=== PATIENT | male | born 1965 | race Caucasian/White ===

== ENCOUNTER 2020-08-29 14:52 | Emergency (ER) | payer MEDICARE, MEDICAID, SELFPAY ==
[2020-08-29 14:53] VITALS: BP 136/103; PULSE 122; RESP 16; TEMP 36.7; O2SAT 96; BMI 24.2
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
[2020-08-29] MEDS: HYDROcodone Bitartrate/Apap 5/325 Tablet PO (15:24)
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
--- NOTE | 2020-08-29 15:36 | RAD_ITS ---
HISTORY: Hypoesthesia infraorbital nerve question crepitus EXAMINATION/TECHNIQUE: XR Facial Bones Min 3 Views: 4 views COMPARISON: None FINDINGS: SOFT TISSUES: No soft tissue swelling or gas. No radiopaque foreign body. BONES: No displaced fracture or subluxation. No sclerotic or destructive changes observed. SINUSES: No acute abnormality. RAD/Facial Bones min 3 Views IMPRESSION: Negative facial bone series. at 1607 Reported and signed by: Buddy Ca MD Electronically Signed: Buddy Ca MD at 16:05 EDT Tel , Service support ,
[2020-08-29 16:17] VITALS: BP 159/115; PULSE 101; RESP 16
== END 2020-08-29 16:20 | disposition home or self-care (01) ==
LOC: ED 15:58
PROVIDERS: Emergency Provider Emergency Medicine
DX: S62.320A Displaced fracture of shaft of second metacarpal bone, right hand, initial encounter for closed fracture (principal); S00.83XA Contusion of other part of head, initial encounter; V89.0XXA Person injured in unspecified motor-vehicle accident, nontraffic, initial encounter; Y93.9 Activity, unspecified; Y92.9 Unspecified place or not applicable; Y99.9 Unspecified external cause status
CPT/HCPCS: 29125; 70150; 73130; 99283

== ENCOUNTER 2022-04-03 06:00 | Emergency (ER) | payer MEDICARE, MEDICAID, SELFPAY ==
[2022-04-03 06:02] VITALS: BP 146/91; PULSE 82; RESP 18; TEMP 36.3; O2SAT 98; BMI 24.2
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
[2022-04-03 06:22] LABS: Absolute Lymphocyte Count 1.03 X10^3/uL (0.83-4.51); Basophil# 0.03 X10^3/uL; Basophil% 0.3 % (0-1); Eosinophil# 0.01 X10^3/uL; Eosinophils% 0.1 % (0-5); Hematocrit 44.6 % (40-54); Hemoglobin 15.8 g/dL (13.0-16.5); Lymphocyte # 1.03 X10^3/ul (0.83-4.51); Lymphocyte % 10.4 % (19-41); Mean Corp Hgb Conc 35.4 g/dL (32-36); Mean Corpuscular Hgb 33.1 pg (27.0-32.0); Mean Corpuscular Volume 93.5 fL (80-94); Mean Platelet Vol. 9.1 fl (6.2-12.0); Monocyte% 8.1 % (0-10); NRBC Flagged by Analyzer 0 % (0-5); Neutrophil # 7.96 X10^3/uL (2.7-7.7); Neutrophil % 80.6 % (47-70); Platelet Count 266 K/mm3 (150-450); RBC Distribution Width CV 12.2 % (11.6-14.6); RBC Distribution Width SD 42.4 fl (35.1-43.9); Red Blood Count 4.77 M/mm3 (4.6-6.2); White Blood Count 9.9 K/mm3 (4.4-11.0)
[2022-04-03] MEDS: Ondansetron 4 MG/2 ML Vial IV (06:29)
[2022-04-03] MEDS: fentaNYL 100 MCG/2 ML Ampul 50 MCG IV (06:29)
[2022-04-03] MEDS: 0.9% Normal Saline 1,000 ML 999 ML IV (06:29)
[2022-04-03 06:38] LABS: ALB/GLOB Ratio 1.1 RATIO (0.9-2.4); AST(SGOT) 53 U/L (15-37); Alanine Aminotransfer ALT/SGPT 72 U/L (16-61); Albumin, Serum 3.8 g/dL (3.2-5.0); Alkaline Phosphatase 85 U/L (45-117); Anion Gap 9 (5-15); BUN 19 mg/dL (7-18); BUN/Creat Ratio 15.7 RATIO (10-20); Calcium,Total 8.4 mg/dL (8.5-10.1); Chloride 103 mmol/L (98-107); Creatinine, Serum 1.21 mg/dL (0.70-1.30); EST Glomerular Filtration Rate 66 mL/min (>60); Est Glom Filt Rate - Afr Amer 80 mL/min (>60); Estimated Creatinine Clearance 61.52 ml/min; Globulin 3.5 g/dL (2.2-4.2); Glucose 137 mg/dL (74-106); Potassium 4.2 mmol/L (3.5-5.1); Protein, Total 7.3 g/dL (6.4-8.2); Sodium Level 139 mmol/L (136-145)
[2022-04-03 06:56] LABS: Alcohol, Blood (Medical)-Serum < 3.0 mg/dL
[2022-04-03] MEDS: Morphine 4 MG/ML Syringe IV ×2 (07:42→08:52)
--- NOTE | 2022-04-03 07:58 | NURSING ---
CALLING JOSHUA FOR TRANSFER
[2022-04-03 08:00] VITALS: BP 134/78; PULSE 78; RESP 16; O2SAT 98
[2022-04-03 08:07] VITALS: BP 140/78; PULSE 18; RESP 16; TEMP 36.6; O2SAT 98
--- NOTE | 2022-04-03 08:25 | NURSING ---
CALLED SQUAD, ETA IS 20 MIN
--- NOTE | 2022-04-03 08:55 | ED.RN ---
THIS RN IN TO MEDICATE PT. PT STATES NOTHING YOU ARE DOING IS HELPING. PT STATES HAS HAD NO PAIN RELIEVE FROM ANY PAIN MEDICATION GIVEN. PT STATES YOUR SUPPOSSED TO TREAT MY PAIN. PT AWARE FENTANYL,MORPHINE AND MORPHINE GIVEN. DR JOSHUA
== END 2022-04-03 09:05 | disposition short-term general hospital (02) ==
PROVIDERS: Emergency Provider Emergency Medicine; Visit Provider Emergency Medicine
DX: S27.321A Contusion of lung, unilateral, initial encounter (principal); S22.42XA Multiple fractures of ribs, left side, initial encounter for closed fracture; S42.022A Displaced fracture of shaft of left clavicle, initial encounter for closed fracture; S27.2XXA Traumatic hemopneumothorax, initial encounter; M54.2 Cervicalgia; V48.5XXA Car driver injured in noncollision transport accident in traffic accident, initial encounter; I10 Essential (primary) hypertension; Z79.899 Other long term (current) drug therapy
CPT/HCPCS: 70450; 71045; 71260; 72125; 74177; 80053; 82077; 85025; 96361; 96374; 96375; 96376; 99283; J7030; Q9967; A4216; J2405

== ENCOUNTER 2025-02-22 07:38 | Inpatient (IN) | payer MEDICAID, SELFPAY ==
[2025-02-22 07:40] VITALS: BP 155/112; PULSE 115; RESP 16; TEMP 36.9; O2SAT 99; BMI 19.8
--- NOTE | 2025-02-22 07:58 | CT_ITS ---
PROCEDURE: BRAIN/HEAD WITHOUT CONTRAST N/A REASON FOR EXAM: CHANGE IN MENTAL STATUS TECHNIQUE: Procedure Code: CTBR Modality: CT Procedure: BRAIN/HEAD WITHOUT CONTRAST Coronal and Sagittal reconstruction series were provided. One or more dose reduction techniques were used (e.g., Automated exposure control, adjustment of the mA and/or kV according to patient size, use of iterative reconstruction technique. COMPARISON: 04/03/2022. FINDINGS: No acute intracranial hemorrhage. No midline shift. The ventricles are normal in size and configuration. No extra-axial fluid collection is identified. No fracture. The calvarium is intact. The visualized paranasal sinuses and mastoid air cells are clear. CT/Brain/Head without Contrast IMPRESSION: No acute intracranial CT abnormality. Reading Location: [id number]
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
--- NOTE | 2025-02-22 08:04 | ED.RN ---
Sophy Gupta RN found a lot of money in pts wallet. he had 29 - 100 dollar bills. Confirmed by myself and Sophy Gupta. Pt decided to keep the money on his person instead of sending it to the triple drum operator to put in the safe.
--- NOTE | 2025-02-22 08:14 | EX.ED.DYSGE1 ---
HPI History of Present Illness Chief Complaint: Suicidal Narrative Narrative: Chief complaint and HPI: 59-year-old male presents via police for mental health evaluation. History is very limited from the patient as he states I cannot remember. Patient denies any medical history or taking any daily medications however on chart review he has a history of HTN and in 2016 had depression with suicidal ideation. Patient was found by police walking the bypass barefoot in the cold. He states he was picking up trash in the grass because the sign told him to. Otherwise he did not remember much else. He is alert and oriented to self. Does not know the month or year. States he has poor memory due to a history of PTSD. He admitted to auditory hallucinations to staff members. Would not answer that question to me. He has a little bit of dried blood on his hand and abrasion to the head. He does not know how he obtain these. He told staff At one point I think I was lying in a ditch freezing and I thought I give up and I think I reached for my pocket knife. Will not confirm suicidal ideation to me. Denies any fever, chills, shortness of breath, chest pain abdominal pain, nausea, vomiting. Denies any illicit drug use. States he drinks alcohol occasionally. When I ask him if he has any family member he states a mother however she has a protection order against. When asked if he had a number for her, he states you do not need this. Review of systems: See HPI Medications: As listed on the chart Allergies: As listed on the chart PFSH: Per chart Vital signs: As listed on the chart. Reviewed. Physical exam: Gen: Alert and oriented to self and place only, NAD Head: Normocephalic, atraumatic other than a small abrasion to the scalp Eyes: No sclera icterus, conjunctiva clear, PERRL, EOMI ENT: Mildly dry mucous membranes, face atraumatic Neck: Trachea midline, full range of motion, nontender CV: RRR, no murmurs, no peripheral edema Resp: Lungs CTA BL, no w/r/c GI: Abd soft, non-distended, non-tender, no r/r/g Musc: Full ROM, no deformity Skin: Warm, dry, some dried blood on the bilateral hands without tenderness or deformity Neuro: Alert, grossly intact Psych: Intermittently cooperative with answering questions [facility] Medical History Hypertension Home Medications ?Medication ?Instructions ?Recorded ?Last Taken ?Type hydrochlorothiazide 25 mg tablet 25 mg PO QODAY #30 tabs 08/29/20 Unknown Rx lisinopril 10 mg tablet 10 mg PO DAILY #30 tabs 08/29/20 Unknown Rx mupirocin 2 % topical ointment 1 applic topical BID #15 grams 02/21/25 Unknown Rx Allergy/AdvReac Type Severity Reaction Status Date / Time No Known Allergies Allergy Verified 02/22/25 07:41 Surgical History Previous back surgery Social History household members: none housing: house Smoking Status: Never smoker alcohol intake: current alcohol intake frequency: a few times a week substance use type: does not use EXAM Physical Exam Const Vital Signs: 02/22/25 07:40 Temperature 98.4 F Temperature Source Oral Pulse Rate 115 H Respiratory Rate 16 Blood Pressure 155/112 H Blood Pressure Mean 126 Pulse Ox 99 Oxygen Delivery Method Room Air MDM MDM MDM Narrative Medical decision making narrative: 59-year-old male presents via police for mental health evaluation. History is very limited from the patient as he states I cannot remember. Patient denies any medical history or taking any daily medications however on chart review he has a history of HTN and in 2016 had depression with suicidal ideation. Patient was found by police walking the bypass barefoot in the cold. He states he was picking up trash in the grass because the sign told him to. Otherwise he did not remember much else. He is alert and oriented to self. Does not know the month or year. States he has poor memory due to a history of PTSD. He admitted to auditory hallucinations to staff members. Would not answer that question to me. He has a little bit of dried blood on his hand and abrasion to the head. He does not know how he obtain these. He told staff At one point I think I was lying in a ditch freezing and I thought I give up and I think I reached for my pocket knife. Will not confirm suicidal ideation to me. See physical exam findings. Differential diagnosis includes but is not limited to paranoia, depression, suicidal ideation, electrolyte abnormality, dehydration, intoxication, intracranial abnormality. NS bolus ordered. Patient pink slipped. Basic labs ordered with CT head. Will try to reach out to family. In the chart and states that his parents are next of kin. The phone number is [phone]. I did call this number however was unable to leave a message due to this not being an option and nobody picked up the phone. CBC without leukocytosis. Patient has hemoconcentration with hemoglobin 16.9. This can be seen with dehydration. Platelet count unremarkable. BMP shows anion gap of 20 without ALBINA. May be secondary to dehydration. Glucose is normal. Patient has hyperbilirubinemia of 2 with transaminitis with an AST of 104 and an ALT of 111. In 2022 patient had a history of transaminitis. Patient not endorsing any abdominal pain. Abdominal exam is benign. I do not think any imaging is needed at this time however will add on CPK as this can cause transaminitis. Alcohol level unremarkable. Patient receiving fluids. Will repeat BMP after fluids. CT of the head shows no acute intracranial abnormality. CPK 1177. Patient has mild rhabdomyolysis given this is 5 times the upper limit of normal. Patient starting to become agitated and intermittently aggressive. P.o. Geodon ordered. UA negative for UTI. Positive for ketones and blood. BMP shows improving anion gap. Suspect dehydration/rhabdo as the cause. Drug screen negative except for cannabis. Will order another NS bolus for hydration. IV Ativan for continued agitation. Patient to be evaluated by social work versus crisis for mental health. Repeat CPK despite 2 L is 1566. I do think patient would benefit from hydration in the hospital for his continuing/worsening rhabdomyolysis. Patient was discussed with the hospitalist service who accepted admission. Social work working on placement. EKG: Interpreted by me/EM physician: EKG shows normal sinus rhythm without any acute ischemic changes. Heart rate 90 Impression: 1. Paranoid 2. Auditory hallucination 3. Transaminitis 4. Rhabdomyolysis 5. Dehydration Lab Data Labs: Laboratory Results - last 24 hr 02/22/25 02/22/25 02/22/25 08:10 08:10 08:10 WBC 10.0 RBC 5.05 Hgb 16.9 H Hct 48.3 MCV 95.6 H MCH 33.5 H MCHC 35.0 RDW Std Deviation 42.5 RDW Coeff of Katarina 12.1 Plt Count 228 MPV 9.5 Immature Gran % (Auto) 0.600 Neut % (Auto) 86.8 H Lymph % (Auto) 5.3 L Clark % (Auto) 6.9 Eos % (Auto) 0.1 Baso % (Auto) 0.3 Absolute Neuts (auto) 8.7 H Absolute Lymphs (auto) 0.53 L Nucleated RBC % 0 Sodium 140 Cancelled Potassium 3.3 Cancelled Chloride 100 Carbon Dioxide Anion Gap BUN Creatinine Estim Creat Clear Calc Est GFR (MDRD) Non-Af BUN/Creatinine Ratio Glucose Calcium Total Bilirubin AST ALT Alkaline Phosphatase Total Creatine Kinase Total Protein Albumin Globulin Albumin/Globulin Ratio Urine Color Urine Clarity Urine pH Ur Specific [place] Urine Protein Urine Glucose (UA) Urine Ketones Urine Occult Blood Urine Nitrite Urine Bilirubin Urine Urobilinogen Ur Leukocyte Esterase Urine RBC Urine WBC Ur Squamous Epith Cells Urine Bacteria Urine Mucus Urine Opiates Screen U Buprenorphine Qual Ur Oxycodone Screen Urine Methadone Screen Urine Fentanyl Screen Ur Barbiturates Screen Ur Phencyclidine Scrn Ur Amphetamines Screen U Benzodiazepines Scrn Urine Cocaine Screen U Cannabinoids Screen Ethyl Alcohol 02/22/25 02/22/25 02/22/25 08:10 08:10 08:10 WBC RBC Hgb Hct MCV MCH MCHC RDW Std Deviation RDW Coeff of Katarina Plt Count MPV Immature Gran % (Auto) Neut % (Auto) Lymph % (Auto) Clark % (Auto) Eos % (Auto) Baso % (Auto) Absolute Neuts (auto) Absolute Lymphs (auto) Nucleated RBC % Sodium Potassium Chloride Cancelled Carbon Dioxide 19.5 L Cancelled Anion Gap 20 H Cancelled BUN 33 H Creatinine Estim Creat Clear Calc Est GFR (MDRD) Non-Af BUN/Creatinine Ratio Glucose Calcium Total Bilirubin AST ALT Alkaline Phosphatase Total Creatine Kinase Total Protein Albumin Globulin Albumin/Globulin Ratio Urine Color Urine Clarity Urine pH Ur Specific [place] Urine Protein Urine Glucose (UA) Urine Ketones Urine Occult Blood Urine Nitrite Urine Bilirubin Urine Urobilinogen Ur Leukocyte Esterase Urine RBC Urine WBC Ur Squamous Epith Cells Urine Bacteria Urine Mucus Urine Opiates Screen U Buprenorphine Qual Ur Oxycodone Screen Urine Methadone Screen Urine Fentanyl Screen Ur Barbiturates Screen Ur Phencyclidine Scrn Ur Amphetamines Screen U Benzodiazepines Scrn Urine Cocaine Screen U Cannabinoids Screen Ethyl Alcohol 02/22/25 02/22/25 02/22/25 08:10 08:10 08:10 WBC RBC Hgb Hct MCV MCH MCHC RDW Std Deviation RDW Coeff of Katarina Plt Count MPV Immature Gran % (Auto) Neut % (Auto) Lymph % (Auto) [place] % (Auto) Eos % (Auto) Baso % (Auto) Absolute Neuts (auto) Absolute Lymphs (auto) Nucleated RBC % Sodium Potassium Chloride Carbon Dioxide Anion Gap BUN Cancelled Creatinine 1.07 Cancelled Estim Creat Clear Calc 62.00 Est GFR (MDRD) Non-Af 80 Cancelled BUN/Creatinine Ratio 31.1 H Glucose Calcium Total Bilirubin AST ALT Alkaline Phosphatase Total Creatine Kinase Total Protein Albumin Globulin Albumin/Globulin Ratio Urine Color Urine Clarity Urine pH Ur Specific [place] Urine Protein Urine Glucose (UA) Urine Ketones Urine Occult Blood Urine Nitrite Urine Bilirubin Urine Urobilinogen Ur Leukocyte Esterase Urine RBC Urine WBC Ur Squamous Epith Cells Urine Bacteria Urine Mucus Urine Opiates Screen U Buprenorphine Qual Ur Oxycodone Screen Urine Methadone Screen Urine Fentanyl Screen Ur Barbiturates Screen Ur Phencyclidine Scrn Ur Amphetamines Screen U Benzodiazepines Scrn Urine Cocaine Screen U Cannabinoids Screen Ethyl Alcohol 02/22/25 02/22/25 02/22/25 08:10 08:10 08:10 WBC RBC Hgb Hct MCV MCH MCHC RDW Std Deviation RDW Coeff of Katarina Plt Count MPV Immature Gran % (Auto) Neut % (Auto) Lymph % (Auto) [place] % (Auto) Eos % (Auto) Baso % (Auto) Absolute Neuts (auto) Absolute Lymphs (auto) Nucleated RBC % Sodium Potassium Chloride Carbon Dioxide Anion Gap BUN Creatinine Estim Creat Clear Calc Est GFR (MDRD) Non-Af BUN/Creatinine Ratio Cancelled Glucose 94 Cancelled Calcium 9.6 Cancelled Total Bilirubin 2.00 H AST 104 H ALT 111 H Alkaline Phosphatase 87 Total Creatine Kinase 1177 H Total Protein 8.0 Albumin 5.0 Globulin 3.0 Albumin/Globulin Ratio 1.7 Urine Color Urine Clarity Urine pH Ur Specific [place] Urine Protein Urine Glucose (UA) Urine Ketones Urine Occult Blood Urine Nitrite Urine Bilirubin Urine Urobilinogen Ur Leukocyte Esterase Urine RBC Urine WBC Ur Squamous Epith Cells Urine Bacteria Urine Mucus Urine Opiates Screen U Buprenorphine Qual Ur Oxycodone Screen Urine Methadone Screen Urine Fentanyl Screen Ur Barbiturates Screen Ur Phencyclidine Scrn Ur Amphetamines Screen U Benzodiazepines Scrn Urine Cocaine Screen U Cannabinoids Screen Ethyl Alcohol < 10.1 02/22/25 02/22/25 02/22/25 10:15 10:35 12:39 WBC RBC Hgb Hct MCV MCH MCHC RDW Std Deviation RDW Coeff of Katarina Plt Count MPV Immature Gran % (Auto) Neut % (Auto) Lymph % (Auto) [place] % (Auto) Eos % (Auto) Baso % (Auto) Absolute Neuts (auto) Absolute Lymphs (auto) Nucleated RBC % Sodium 138 Potassium 3.8 Chloride 99 Carbon Dioxide 22.8 Anion Gap 16 H BUN 31 H Creatinine 1.01 Estim Creat Clear Calc 65.68 Est GFR (MDRD) Non-Af 86 BUN/Creatinine Ratio 30.3 H Glucose 88 Calcium 8.8 Total Bilirubin AST ALT Alkaline Phosphatase Total Creatine Kinase 1566 H Total Protein Albumin Globulin Albumin/Globulin Ratio Urine Color Yellow Urine Clarity Clear Urine pH 5.0 Ur Specific [place] 1.025 Urine Protein 100 H Urine Glucose (UA) Normal Urine Ketones 50 H Urine Occult Blood 150 H Urine Nitrite Negative Urine Bilirubin Negative Urine Urobilinogen Normal Ur Leukocyte Esterase Negative Urine RBC 0 SEEN Urine WBC 0 SEEN Ur Squamous Epith Cells 0 SEEN Urine Bacteria 1+ Urine Mucus 0 SEEN Urine Opiates Screen NEGATIVE U Buprenorphine Qual NEGATIVE Ur Oxycodone Screen NEGATIVE Urine Methadone Screen NEGATIVE Urine Fentanyl Screen NEGATIVE Ur Barbiturates Screen NEGATIVE Ur Phencyclidine Scrn NEGATIVE Ur Amphetamines Screen NEGATIVE U Benzodiazepines Scrn NEGATIVE Urine Cocaine Screen NEGATIVE U Cannabinoids Screen PRESUMPTIVE POSITIVE Ethyl Alcohol Radiography Diagnostic Testing: Clinical Impression(s) from Imaging Studies Brain CT 02/22/25 07:58 IMPRESSION: No acute intracranial CT abnormality. Reading Location: [id number] Discharge Plan Triage Chief Complaint: Suicidal ED Provider: Nik Escoto Dx/Rx/DC Orders Prescriptions: No Action mupirocin 2 % ointment 1 applic topical BID Qty: 15 1RF lisinopril 10 mg tablet 10 mg PO DAILY Qty: 30 0RF hydrochlorothiazide 25 mg tablet 25 mg PO QODAY Qty: 30 0RF Primary Care Provider: Care Physician,No Primary Referrals: Care Physician,No Primary [Primary Care Provider, Medical] Print Language: Bolivian
[2025-02-22 08:23] LABS: Hematocrit 48.3 % (40-54); Hemoglobin 16.9 g/dL (13.0-16.5); Immature Granulocytes Count 0.060 X10^3/uL (0.0-0.0); Mean Corp Hgb Conc 35.0 g/dL (32-36); Mean Corpuscular Volume 95.6 fL (80-94); Mean Platelet Vol. 9.5 fl (6.2-12.0); NRBC Flagged by Analyzer 0 % (0-5); POSITIVE DIFFERENTIAL YES; Platelet Count 228 K/mm3 (150-450); RBC Distribution Width CV 12.1 % (11.6-14.6); RBC Distribution Width SD 42.5 fl (35.1-43.9); Red Blood Count 5.05 M/mm3 (4.6-6.2); White Blood Count 10.0 K/mm3 (4.4-11.0)
[2025-02-22 08:45] LABS: Alcohol, Blood (Medical)-Serum < 10.1 mg/dL (<=10.0)
[2025-02-22 08:46] LABS: AST(SGOT) 104 U/L (<=37); Alanine Aminotransfer ALT/SGPT 111 U/L (<=46); Albumin, Serum 5.0 g/dL (3.5-5.0); Alkaline Phosphatase 87 U/L (40-129); Anion Gap 20 (5-15); BUN 33 mg/dL (4-19); BUN/Creat Ratio 31.1 RATIO (10-20); Calcium,Total 9.6 mg/dL (7.6-11.0); Carbon Dioxide 19.5 mmol/L (21.0-32.0); Chloride 100 mmol/L (98-108); Estimated Creatinine Clearance 62.00 ml/min (50-250); Globulin 3.0 g/dL (2.2-4.2); Glucose 94 mg/dL (70-99); Potassium 3.3 mmol/L (3.3-5.1)
[2025-02-22] MEDS: 0.9% Normal Saline (1000mL) 1,000 ML 1000 ML IV ×2 (09:10→11:15)
[2025-02-22 09:46] LABS: CPK Total, Creatine Kinase 1177 U/L (24-195)
--- NOTE | 2025-02-22 09:47 | ED.RN ---
Pt repeatedly asking for pain medications for his chronic pain. This RN told pt. she would ask the dr. but it may only be for tylenol or motrin. Pt. responded with I was oxy, percocet, or vicodin and I need that I am required to get that. Pt. states he does not have existing prescription for those medications.
--- NOTE | 2025-02-22 09:54 | EKG12_ITS ---
Test Reason : MEDICAL CLEARANCE Blood Pressure : */* mmHG Vent. Rate : 90 BPM Atrial Rate : 90 BPM P-R Int : 134 ms QRS Dur : 92 ms QT Int : 386 ms P-R-T Axes : 70 63 57 degrees QTcB Int : 472 ms Normal sinus rhythm Normal ECG Confirmed by Mgaed Ray ([id number]), editor & co founder GHULAM JUAREZ ([id number]) on 02/24/2025 8:39:34 AM Referred By: Confirmed By: Maged Ray
[2025-02-22 10:19] LABS: Mucous, Urine 0 SEEN /hpf (<or=2+); Red Blood Cells-Urine 0 SEEN /hpf (0-5); Squamous Epithelial Cells - UA 0 SEEN /hpf (0-5)
[2025-02-22 10:23] LABS: Color, Urine Yellow (Yellow); Glucose, Dipstick Normal (Normal); Ketone-Dipstick 50 mg/dl (Negative); Leukocyte Esterase-Dipstick Negative /ul (Negative); Nitrite-Dipstick Negative (Negative); Occult Blood-Urine 150 /ul (Negative); Protein-Dipstick 100 mg/dl (Negative); Specific Gravity, Urine 1.025 (1.002-1.030); Urine Bilirubin Dipstick Negative (Negative)
--- NOTE | 2025-02-22 10:39 | ED.RN ---
pt is having an increase in hearing voices in room and responding to them. Pt. yelled out of room at Aaron and Ramon RN and called them bastards and that he would throw down anyday with any of you. Order for PO Faraz given. Pt. then stated he could not find his money that he inisted on keeping in room and accused staff of stealing his money. This RN, Olivia panda, Dariusz higgins and HRO assisted pt. in looking for money in his linens in room. pt then admitted to be hiding the money on his person under his gown. This RN reiterated again that his money would be the most safe given to security and placed in the safe. Pt. continues to talk about hunting humans in the [place] and how you fuckers wouldnt stand a chance
[2025-02-22 11:01] LABS: Barbiturate Urine NEGATIVE (< 200 ng/mL); Benzodiazepine Urine NEGATIVE (< 200 ng/mL); PCP Urine NEGATIVE (< 25 ng/mL); THC Urine PRESUMPTIVE POSITIVE (< 50 ng/mL)
[2025-02-22 11:05] LABS: Anion Gap 16 (5-15); BUN 31 mg/dL (4-19); BUN/Creat Ratio 30.3 RATIO (10-20); Calcium,Total 8.8 mg/dL (7.6-11.0); Carbon Dioxide 22.8 mmol/L (21.0-32.0); Chloride 99 mmol/L (98-108); Estimated Creatinine Clearance 65.68 ml/min (50-250); Glucose 88 mg/dL (70-99); Potassium 3.8 mmol/L (3.3-5.1)
[2025-02-22 13:19] LABS: CPK Total, Creatine Kinase 1566 U/L (24-195)
--- NOTE | 2025-02-22 13:27 | PCM.HP.STD ---
HPI - General General Date of Admission: 02/22/25 Date of Service: 02/22/25 Chief Complaint: Disorientation HPI Narrative ABIMAEL FRIAS, is a 59 M with past medical history significant for essential hypertension who was brought to the emergency department with disorientation and delusions. Patient was apparently found in the ditch with dried blood on his cell. He had apparently told the lock expert he was hearing voices and was going to stop his throats. Was brought to the emergency department. Plan was for patient to have been transferred to an inpatient psych facility he was however found to have elevated CPK. He did receive IV hydration and his CPK levels repeated which did show an upward trend hence the decision to admit patient as a case of acute rhabdomyolysis [facility] Medical History Hypertension Home Medications ?Medication ?Instructions ?Recorded ?Last Taken ?Type hydrochlorothiazide 25 mg tablet 25 mg PO QODAY #30 tabs 08/29/20 Unknown Rx lisinopril 10 mg tablet 10 mg PO DAILY #30 tabs 08/29/20 Unknown Rx mupirocin 2 % topical ointment 1 applic topical BID #15 grams 02/21/25 Unknown Rx Allergy/AdvReac Type Severity Reaction Status Date / Time No Known Allergies Allergy Verified 02/22/25 07:41 Surgical History Previous back surgery Social History household members: none housing: house Smoking Status: Never smoker alcohol intake: current alcohol intake frequency: a few times a week substance use type: does not use ROS ROS Narrative Unable to obtain given patient's current state Vital Signs Vital Signs Vital Signs: 02/22/25 07:40 Temperature 98.4 F Temperature Source Oral Pulse Rate 115 H Respiratory Rate 16 Blood Pressure 155/112 H Blood Pressure Mean 126 Pulse Ox 99 Oxygen Delivery Method Room Air Weight Weight: 58.967 kg Body Mass Index (BMI) 19.8 Physical Exam Narrative GENERAL: Patient awake laying on his abdomen not answering questions HEENT: Atraumatic; EYES; Anicteric, Normal Conjunctiva NECK; supple, normal thyroid, RESPIRATORY: Diminished to auscultation CARDIOVASCULAR: Regular S1 S2, GI: soft, normoactive bowel sounds, : No Renal angle tenderness; EXTREMITIES: No edema, no clubbing, MUSCULOSKELETAL: no muscle wasting NEURO: Patient appears to move all extremities spontaneous SKIN: No Rash PSYCH; agitated Results Lab / Micro Data 02/22/25 08:10 02/22/25 10:35 Labs: Laboratory Results - last 24 hr 02/22/25 08:10: WBC 10.0, RBC 5.05, Hgb 16.9 H, Hct 48.3, MCV 95.6 H, MCH 33.5 H, MCHC 35.0, RDW Std Deviation 42.5, RDW Coeff of Katarina 12.1, Plt Count 228, MPV 9.5, Immature Gran % (Auto) 0.600, Neut % (Auto) 86.8 H, Lymph % (Auto) 5.3 L, [place] % (Auto) 6.9, Eos % (Auto) 0.1, Baso % (Auto) 0.3, Absolute Neuts (auto) 8.7 H, Absolute Lymphs (auto) 0.53 L, Nucleated RBC % 0, Sodium 140 02/22/25 08:10: Sodium Cancelled, Potassium 3.3 02/22/25 08:10: Potassium Cancelled, Chloride 100 02/22/25 08:10: Chloride Cancelled, Carbon Dioxide 19.5 L 02/22/25 08:10: Carbon Dioxide Cancelled, Anion Gap 20 H 02/22/25 08:10: Anion Gap Cancelled, BUN 33 H 02/22/25 08:10: BUN Cancelled, Creatinine 1.07 02/22/25 08:10: Creatinine Cancelled, Estim Creat Clear Calc 62.00, Est GFR (MDRD) Non-Af 80 02/22/25 08:10: Est GFR (MDRD) Non-Af Cancelled, BUN/Creatinine Ratio 31.1 H 02/22/25 08:10: BUN/Creatinine Ratio Cancelled, Glucose 94 02/22/25 08:10: Glucose Cancelled, Calcium 9.6 02/22/25 08:10: Calcium Cancelled, Total Bilirubin 2.00 H, AST 104 H, ALT 111 H, Alkaline Phosphatase 87, Total Creatine Kinase 1177 H, Total Protein 8.0, Albumin 5.0, Globulin 3.0, Albumin/Globulin Ratio 1.7, Ethyl Alcohol < 10.1 02/22/25 10:15: Urine Color Yellow, Urine Clarity Clear, Urine pH 5.0, Ur Specific [place] 1.025, Urine Protein 100 H, Urine Glucose (UA) Normal, Urine Ketones 50 H, Urine Occult Blood 150 H, Urine Nitrite Negative, Urine Bilirubin Negative, Urine Urobilinogen Normal, Ur Leukocyte Esterase Negative, Urine RBC 0 SEEN, Urine WBC 0 SEEN, Ur Squamous Epith Cells 0 SEEN, Urine Bacteria 1+, Urine Mucus 0 SEEN, Urine Opiates Screen NEGATIVE, U Buprenorphine Qual NEGATIVE, Ur Oxycodone Screen NEGATIVE, Urine Methadone Screen NEGATIVE, Urine Fentanyl Screen NEGATIVE, Ur Barbiturates Screen NEGATIVE, Ur Phencyclidine Scrn NEGATIVE, Ur Amphetamines Screen NEGATIVE, U Benzodiazepines Scrn NEGATIVE, Urine Cocaine Screen NEGATIVE, U Cannabinoids Screen PRESUMPTIVE POSITIVE 02/22/25 10:35: Sodium 138, Potassium 3.8, Chloride 99, Carbon Dioxide 22.8, Anion Gap 16 H, BUN 31 H, Creatinine 1.01, Estim Creat Clear Calc 65.68, Est GFR (MDRD) Non-Af 86, BUN/Creatinine Ratio 30.3 H, Glucose 88, Calcium 8.8 02/22/25 12:39: Total Creatine Kinase 1566 H Imaging Radiology Impression Brain CT 02/22/25 07:58 IMPRESSION: No acute intracranial CT abnormality. Reading Location: [id number] Assessment & Plan Assessment/Plan (1) Rhabdomyolysis: PLAN: Plan Patient is a 59-year-old gentleman admitted with agitation and suicidal ideas 1. Acute psychosis ? Patient did receive Geodon as well as Ativan in the ED admitted to regular nursing floor with a sitter by the side. hot blast worker was consulted from the ED to facilitate transfer to an inpatient psych facility once patient is medically stable 2. Acute rhabdomyolysis ? Secondary to prolonged period of immobilization patient started on IV fluid repeat CPK levels ordered for a.m. 3. Dehydration ? As evidenced by elevated BUN. Patient is on IV fluid with repeat BMP ordered for a.m. 4. Essential hypertension ? Patient is on HCTZ and lisinopril plan is to resume once home meds have been reconciled. Patient blood pressure currently elevated ordered hydralazine as needed for systolic blood pressure greater than 160 and diastolic greater than 100 5. Acute transaminitis ? Repeat BMP ordered for a.m. and if still elevated will obtain ultrasound of the right upper quadrant 6. DVT prophylaxis ? Low risk encourage ambulation Time spent in the patient's overall evaluation,decision-making process, review of diagnostic data, adjustment of management, discussion with other providers, nursing nursing and ancillary staff involved in patient's care documentation, 55 minutes Charges/Coding Visit Charges Inpatient E&M: 84454 Init Hosp L2
--- NOTE | 2025-02-22 14:21 | CM.ED ---
Social Work Psychiatric Assessment Reason for consult: ?Mental Health Informant(s): Patient, medical record Chief Complaint: ?Patient was found outside in the cold without shoes, walking along the road.? Patient was brought to ED by police for assessment.?? Patient was unable to participate in assessment with SW.?? Patient was responding to internal stimuli, telling social work that he was engaged in multiple conversations at one time ?Don?t you hear them??.? Patient states that one of the conversations was with his son as both he and his son have chips in their brains and can talk through telepathy.? Patient states his son was currently calling his a ?dope head?.? Patient was unable to sit still during assessment, would stand up by side of bed, crouch beside it to ?stretch his toes?, was picking at blankets on bed although there was nothing on them.? Patient was unable or unwilling to respond to direct questions.? When asked the year, patient replied $41,000 and when asked if he graduated high school, patient stated ?the smartest men in the world don?t have their teeth?.? Marital/Social History: ? Living Situation: ?Patient reports to living in the [facility], states ?we? live in the [facility].? When asked who ?we? are, patient states ?you know, we!?.? Patient then denies living with a group of others.? Support/Resources: ?Patient reports that he likes to come in and out of his moms house, however chart states that patients mom has a restraining order against him. SW attempted to contact patients mom with number listed on face sheet, call went directly to voicemail and there was no ability to leave message. History: Patient reports to having served in the [email or web address], unclear if this is accurate.? Education and Employment History: ?Patient is on disability, records indicate from a broken back 10 years ago.? Mental Health Treatment/History: ?No mental health services were noted in patients medical record.? Triggers/Stressors to mental health: Unknown.? Coping Skills: ?patient unable to respond to question History of Abuse (physical/sexual/verbal/emotional): ?patient unable to respond to question Substance Abuse Current/Historical: Risk to Self/Others: ? Suicidal (thought/plan/intent/attempt): ?Unable to complete C-SSRS ? Access to Lethal Means: ? Homicidal (thought/plan/intent/attempt): ? History of Violence (self/others/objects): Mental Status Exam: ??? Orientation: Patient was oriented x 1, to self only ??? Memory: ?unable to assess Appearance/General Behavior: ?agitated, non-directable Mood/Affect: ?elevated, labile Communication Pattern: ?tangential, pressured, Thought Process: auditory hallucination, delusions, paranoia General Intellectual Functioning: average Judgment: ?poor Insight: ?poor Plan: ??Patient requiring admission for medical clearance, patient to be reassessed once medically cleared to determine if inpatient hospitalization is recommended. Nikky Jackman, BILINGUAL MEDICAL RECEPTIONIST, SUPERVISOR [employer]
[2025-02-22] MEDS: 0.9% Normal Saline (1000mL) 1,000 ML 150 ML IV ×2 (14:33→21:03)
[2025-02-22 16:15] VITALS: BP 119/85; PULSE 74; RESP 16; TEMP 36.7; O2SAT 97
[2025-02-22 16:16] VITALS: BMI 22.1
[2025-02-22 19:50] VITALS: BP 157/72; PULSE 81; RESP 16; TEMP 36.6; O2SAT 100
--- OUTSIDE RECORDS SUMMARY | 2025-02-22 19:57 | XMS RPT_ITS | CCD ---
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 for anxiety Normal [facility] ED PROV NOTEon 07-10-2023 ED PROV NOTE HNO ID: [id number] Author: MALINI ALAS MD Service: ? Author Type: Physician Type: ED Provider Notes Filed: 07/10/2023 09:48 Note Text: ED Provider Note Patient Name: Abimael Dave : 1965 SERVICE DATE: 07/10/23 History Patient presents with: Leg Cramps: Just discharged from here - states that he doesn't have his cane and his cramping is worsening Patient who was just discharged after being brought in for digging through a neighbors trash and cleared from a psych perspective returns to the emergency department complaining of leg cramps. Patient received IV fluids, Ativan and magnesium overnight due to his concern he might be having alcohol withdrawal. Patient was medically cleared and discharged, ambulatory and hemodynamically stable in no distress. Patient did not leave the hospital property and told an officer that he was having leg cramps and wanted to be seen again. Patient currently stating he feels dehydrated. He has intermittent leg cramps. He is not taking his blood pressure medications because he states they were in his car that got impounded. He does not know what he takes. PAST MEDICAL HISTORY Diagnosis Date Acquired spondylolisthesis Chronic hepatitis C without mention of hepatic coma Chronic low back pain Depressive disorder, not elsewhere classified H/O alcohol abuse Lumbago Opiate addiction (HCC) Spinal stenosis, lumbar region, without neurogenic claudication PAST SURGICAL HISTORY Procedure Laterality Date OPEN TX METACARPAL FRACTURE SINGLE EA BONE Right 04/08/2020 Right 4th [facility] ORIF and excision bony exostosis right 3rd Metacarpal PAST SURGICAL HISTORY OF 03/25/2005 lumbar spondylolisthesis L4-L5 fixation surgery No family history on file. Social History Tobacco Use Smoking status: Light Smoker Smokeless tobacco: Never Vaping Use Vaping Use: Never used Substance and Sexual Activity Alcohol use: Yes Comment: occasionally Drug use: Yes Types: Marijuana, Amphetamines Comment: 07/10/23 Sexual activity: Not on file ALLERGIES Allergen Reactions Bactrim [Sulfametho* GI Upset vomiting Review of Systems Constitutional: Pertinent positives and negatives as per HPI. Physical Exam Vitals BP Pulse Temp Temp src Resp SpO2 Weight Height -- -- -- -- -- -- -- -- Physical Exam Vitals and nursing note reviewed. Exam conducted with a security program manager present. Constitutional: Comments: Unkempt appearing, patient ambulated without any difficulty from the waiting room into his ED room, currently sitting in a chair in no distress HENT: Head: Normocephalic and atraumatic. Cardiovascular: Rate and Rhythm: Normal rate and regular rhythm. Pulmonary: Effort: Pulmonary effort is normal. No respiratory distress. Musculoskeletal: General: Normal range of motion. Neurological: General: No focal deficit present. Mental Status: He is alert and oriented to person, place, and time. Gait: Gait normal. Comments: Speech is fluent, no slurring Diagnostic Testing ED Labs Ordered and Reviewed - No data to display Procedures ED Course / Clinical Impression ED Course as of 07/10/23 0946 Malini Alas's Documentation SatJul 10, 2023 0842 Magnesium: 2.3 0946 Anion Gap: 16 0946 Magnesium: 2.3 Clinical Impressions as of 07/10/23 0946 Leg cramps Hypokalemia Hypertension, unspecified type MDM / Disposition / Plan Patient's labs from last night were reviewed. He did have some ketones in his urine and mild hypokalemia, anion gap, which may be from dehydration and starvation ketosis. Patient will be given IV fluids, potassium, and Toradol for his muscle cramps. Patient was given a dose of amlodipine, which is the blood pressure medication he is supposed to be on per chart review. Labs were repeated that did show hypokalemia. Other labs had improved from earlier. Patient's anion gap resolved. Normal magnesium. Patient was discharged on oral potassium supplementation, his amlodipine that he has not been taking, and naproxen to help with pain. Patient was instructed to follow-up with primary care for his ongoing medical issues such as his hypertension and reevaluation of hypokalemia. History and Record Review External record(s) reviewed: prior outpatient record. Findings from review of outpatient records: Medication history reviewed Differential Diagnoses - Muscle cramps - Hypertension - Hypokalemia - Medication noncompliance Management All Labs ED Labs Ordered and Reviewed BASIC METABOLIC PANEL - Abnormal Result Value Glucose 124 (*) BUN 17 Creatinine 0.76 Sodium 140 Potassium 3.0 (*) Chloride 100 CO2 24 Anion Gap 16 Calcium, Total 8.2 (*) Estimated Glomerular Filtration Rate 105 MAGNESIUM - Normal Magnesium 2.3 Meds Given During Visit ED Medication Administration from 07/10/2023 0657 to 07/10/2023 0947 Date/Time Order Dose Route Action 07/10/2023 0802 EDT NaC (more content not included)... Normal [facility] ED PROV NOTE HNO ID: [id number] Author: ERIN SORIANO MD Service: ? Author Type: Physician Type: ED Provider Notes Filed: 07/10/2023 06:05 Note Text: ED Provider Note Patient Name: Abimael Dave : 1965 SERVICE DATE: 07/09/23 History Patient presents with: Psychiatric Problem 57 year old male presents to the emergency department for evaluation of alcohol detox. Per police he was digging through a strangers trash. He reports he has gone 24 hours without alcohol and was afraid if he went to the convenience store for water he would buy alcohol so he was looking for something to drink in the trash cans on the way to his mothers house. When asked about his alcohol use he is avoidant and continues to look at the police in the hallway, he states honestly I am not on all my medications that I should be. When asked about him medical conditions he states PTSD. He denies any pain. No history of seizures. He is avoidant and doesn't answer all my questions. He needs to be redirected multiple times before he responds. Speech is not slurred he is awake and alert. History provided by: Patient and police communications supervisor used: No PAST MEDICAL HISTORY Diagnosis Date Acquired spondylolisthesis Chronic hepatitis C without mention of hepatic coma Chronic low back pain Depressive disorder, not elsewhere classified H/O alcohol abuse Lumbago Opiate addiction (HCC) Spinal stenosis, lumbar region, without neurogenic claudication PAST SURGICAL HISTORY Procedure Laterality Date OPEN TX METACARPAL FRACTURE SINGLE EA BONE Right 04/08/2020 Right 4th [facility] ORIF and excision bony exostosis right 3rd Metacarpal PAST SURGICAL HISTORY OF 03/25/2005 lumbar spondylolisthesis L4-L5 fixation surgery No family history on file. Social History Tobacco Use Smoking status: Light Smoker Smokeless tobacco: Never Vaping Use Vaping Use: Never used Substance and Sexual Activity Alcohol use: Yes Comment: occasionally Drug use: Not Currently Sexual activity: Not on file ALLERGIES Allergen Reactions Bactrim [Sulfametho* GI Upset vomiting Review of Systems Constitutional: Negative. HENT: Negative. Eyes: Negative. Respiratory: Negative. Cardiovascular: Negative. Gastrointestinal: Negative. Endocrine: Negative. Genitourinary: Negative. Musculoskeletal: Negative. Skin: Negative. Allergic/Immunologic: Negative. Neurological: Negative. Hematological: Negative. Psychiatric/Behavioral : Positive for agitation. Reports alcohol withdrawal Physical Exam Vitals [07/09/232107] BP Pulse Temp Temp src Resp SpO2 Weight Height (!) 184/127 (!) 124 36.7 ?C (98 ?F) Temporal 18 98 % 68 kg (150 lb) -- Physical Exam Vitals and nursing note reviewed. Constitutional: Appearance: He is not toxic-appearing. HENT: Head: Normocephalic and atraumatic. Cardiovascular: Rate and Rhythm: Normal rate. Pulmonary: Effort: Pulmonary effort is normal. No respiratory distress. Skin: General: Skin is warm. Neurological: General: No focal deficit present. Mental Status: He is alert and oriented to person, place, and time. Psychiatric: Attention and Perception: He is inattentive. Mood and Affect: Mood normal. Speech: Speech is delayed. Behavior: Behavior is agitated (slightly). Comments: No tongue fasciculations or asterixis Diagnostic Testing ED Labs Ordered and Reviewed COMPREHENSIVE METABOLIC PANEL - Abnormal; Notable for the following components: Result Value Ref Range Albumin 5.3 (*) 3.9 - 4.9 g/dL Bilirubin, Total 1.6 (*) 0.2 - 1.3 mg/dL Alkaline Phosphatase 124 (*) 38 - 113 U/L AST 132 (*) 14 - 40 U/L ALT 74 (*) 10 - 54 U/L Potassium 3.5 (*) 3.7 - 5.1 mmol/L CO2 21 (*) 22 - 30 mmol/L Anion Gap 22 (*) 9 - 18 mmol/L All other components within normal limits COMPLETE BLOOD COUNT - Normal ETHANOL/ALCOHOL - Normal URINALYSIS WITH MICROSCOPIC, REFLEX CULTURE TOXICOLOGY SCREEN, ROUTINE URINE Procedures ED Course / Clinical Impression Clinical Impressions as of 07/10/23 0026 Substance abuse (HCC) PTSD (post-traumatic stress disorder) Amphetamine abuse (HCC) Diminished Capacity (From admission, onward) Ordered Status Ordering Provider 07/09/23 3674 Diminished Mental Capacity (This order expires after 24 hours) [[id number]] Continuous x 24 hours Expiring References: Against Medical Advice (AMA) Policy Patients Without Surrogate Standard Operating Procedure Against Medical Advice (AMA) Policy ([place] Only) Question Answer Comment I have evaluated this patient and based on my examination determined that the patient has a primary diagnosis of: Substance Withdrawal At present, patient lacks sufficient decision making ability to make informed decisions to leave the hospital, therefore, Patient should not be allowed to leave the hospital against medical advice Acknowledged NIKOLAS CUNNINGHAM MDM / Disposition / Plan Vital (more content not included)... Normal [facility] Magnesium SerPl-mCncon 07-09 Magnesium [Mass/Vol] 2.3 mg/dL Normal 1.7-2.3 [facility] Comment on above: Order Comment: Speci men Type: BLOOD SPECIMENOrdering Facility: [facility] Address: [address] [place] [address] Performed By: #### 2 4321-2, 88670-1 ####[facility] LABORATORYCLIA [id number] [place] [id number] [place] TOXICOLOGY SCREEN, ROUTINE U RINEon 07-10-2023 Amphetamines Confirm (U) [Mass/Vol] Positive Abnormal Negative [facility] Comment on above: Order Comment: Speci men Type: URINE SPECIMENOrdering Facility: [facility] Address: [address] [place] [address] Result Comment: Cuto ff threshold at 1000 ng/mL. Performed By: #### U TOX2 ####POWER LABORATORYCLIA [id number] [address] [place] BARBITURATES, URINE Negative Normal Negative [facility] Comment on above: Order Comment: Speci men Type: URINE SPECIMENOrdering Facility: [facility] Address: [address] [place] [address] Result Comment: Cuto ff threshold at 200 ng/mL. Performed By: #### U TOX2 ####POWER LABORATORYCLIA [id number] [place] [address] [place] BENZODIAZEPINES, UR Negative Normal Negative [facility] Comment on above: Order Comment: Speci men Type: URINE SPECIMENOrdering Facility: [facility] Address: [address] [place] [address] Result Comment: Cuto ff threshold at 200 ng/mL. Performed By: #### U TOX2 ####POWER LABORATORYCLIA [id number] [address] [place] Cannabinoids Screen Ql (U) Positive Abnormal Negative [facility] Comment on above: Order Comment: Speci men Type: URINE SPECIMENOrdering Facility: [facility] Address: [address] [place] [address] Result Comment: Cuto ff threshold at 50 ng/mL. Performed By: #### U TOX2 ####POWER LABORATORYCLIA [id number] [address] [place] Cocaine Ql (U) Negative Normal Negative [facility] Comment on above: Order Comment: Speci men Type: URINE SPECIMENOrdering Facility: [facility] Address: [address] [place] [address] Result Comment: Cuto ff threshold at 300 ng/mL. Performed By: #### U TOX2 ####POWER LABORATORYCLIA [id number] [address] [place] Ethanol (U) [Mass/Vol] <11 Normal <11 [facility] Comment on above: Order Comment: Speci men Type: URINE SPECIMENOrdering Facility: [facility] Address: [address] [place] [address] Performed By: #### U TOX2 ####POWER LABORATORYCLIA [id number] [address] Opiates Screen Ql (U) Negative Normal Negative [facility] Comment on above: Order Comment: Speci men Type: URINE SPECIMENOrdering Facility: [facility] Address: [address] [place] [address] Result Comment: Cuto ff threshold at 300 ng/mL. Performed By: #### U TOX2 ####POWER LABORATORYCLIA [id number] [address] oxyCODONE cutoff Screen (U) [Mass/Vol] Negative Normal Negative [facility] Comment on above: Order Comment: Speci men Type: URINE SPECIMENOrdering Facility: [facility] Address: [address] [place] [address] Result Comment: Cuto ff threshold at 100 ng/mL. Performed By: #### U TOX2 ####POWER LABORATORYCLIA [id number] [address] Phencyclidine Ql (U) Negative Normal Negative [facility] Comment on above: Order Comment: Speci men Type: URINE SPECIMENOrdering Facility: [facility] Address: [address] [place] [address] Result Comment: Cuto ff threshold at 25 ng/mL. Performed By: #### U TOX2 ####POWER LABORATORYCLIA [id number] [address] Urinalysis complete panel (U )on 07-10-2023 Bilirubin Ql (U) Negative Normal Negative [facility] Comment on above: Order Comment: Speci men Type: URINE SPECIMENOrdering Facility: [facility] Address: [address] [place] [address] Performed By: #### 2 4356-8 ####POWER LABORATORYCLIA [id number] [address] Clarity (Unsp spec) Clear Normal Clear [facility] Comment on above: Order Comment: Speci men Type: URINE SPECIMENOrdering Facility: [facility] Address: [address] [place] [address] Performed By: #### 2 4356-8 ####POWER LABORATORYCLIA [id number] [place] [address] [place] Color (U) Yellow Normal Yellow [facility] Comment on above: Order Comment: Speci men Type: URINE SPECIMENOrdering Facility: [facility] Address: [address] [place] [address] Performed By: #### 2 4356-8 ####POWER LABORATORYCLIA [id number] [place] [address] [place] Epithelial cells LM.HPF (Urine sed) [#/Area] Few Normal [facility] Comment on above: Order Comment: Speci men Type: URINE SPECIMENOrdering Facility: [facility] Address: [address] [place] [address] Performed By: #### 2 4356-8 ####POWER LABORATORYCLIA [id number] [address] [place] Glucose Test strip (U) [Mass/Vol] Negative Normal Negative [facility] Comment on above: Order Comment: Speci men Type: URINE SPECIMENOrdering Facility: [facility] Address: [address] [place] [address] Performed By: #### 2 4356-8 ####POWER LABORATORYCLIA [id number] [address] [place] [facility] Hemoglobin Ql (U) 3+ Abnormal Negative [facility] Comment on above: Order Comment: Speci men Type: URINE SPECIMENOrdering Facility: [facility] Address: [address] [place] [address] Performed By: #### 2 4356-8 ####POWER LABORATORYCLIA [id number] [place] [address] [place] [facility] [place] Ketones Ql (U) 2+ Abnormal Negative [facility] Comment on above: Order Comment: Speci men Type: URINE SPECIMENOrdering Facility: [facility] Address: [address] [place] [address] Performed By: #### 2 4356-8 ####POWER LABORATORYCLIA [id number] [place] [address] [place] Leukocyte esterase Test strip Ql (U) Negative Normal Negative [facility] Comment on above: Order Comment: Speci men Type: URINE SPECIMENOrdering Facility: [facility] Address: [address] [place] [address] Performed By: #### 2 4356-8 ####POWER LABORATORYCLIA [id number] [place] [address] [place] Nitrite Ql (U) Negative Normal Negative [facility] Comment on above: Order Comment: Speci men Type: URINE SPECIMENOrdering Facility: [facility] Address: [address] [place] [address] Performed By: #### 2 4356-8 ####POWER LABORATORYCLIA [id number] [place] [address] [place] pH (U) 6.0 [pH] Normal 5.0-8.0 [facility] Comment on above: Order Comment: Speci men Type: URINE SPECIMENOrdering Facility: [facility] Address: [address] [place] [address] Performed By: #### 2 4356-8 ####POWER LABORATORYCLIA [id number] [place] [address] [place] Protein (U) [Mass/Vol] 2+ Abnormal Negative [facility] Comment on above: Order Comment: Speci men Type: URINE SPECIMENOrdering Facility: [facility] Address: [address] [place] [address] Performed By: #### 2 4356-8 ####POWER LABORATORYCLIA [id number] [place] [address] [place] RBC LM.HPF (Urine sed) [#/Area] 0-3 /HPF Normal 0-3 /HPF [facility] Comment on above: Order Comment: Speci men Type: URINE SPECIMENOrdering Facility: [facility] Address: [address] [place] [address] Performed By: #### 2 4356-8 ####POWER LABORATORYCLIA [id number] [place] [address] [place] Specific gravity (U) [Rel density] >=1.030 High 1.005-1.030 [facility] Comment on above: Order Comment: Speci men Type: URINE SPECIMENOrdering Facility: [facility] Address: [address] [place] [address] Performed By: #### 2 4356-8 ####POWER LABORATORYCLIA [id number] [address] [place] Present Abnormal None Seen [facility] Comment on above: Order Comment: Speci men Type: URINE SPECIMENOrdering Facility: [facility] Address: [address] [place] [address] Performed By: #### 2 4356-8 ####[facility] LABORATORYCLIA [id number] [address] Urobilinogen Ql (U) 0.2 EU/dL Normal 0.2-1.0 EU/dL [facility] Comment on above: Order Comment: Speci men Type: URINE SPECIMENOrdering Facility: [facility] Address: [address] [place] [address] Performed By: #### 2 4356-8 ####[facility] LABORATORYCLIA [id number] [address] [place] [facility] WBC LM.HPF (Urine sed) [#/Area] 0-5 /HPF Normal 0-5 /HPF [facility] Comment on above: Order Comment: Speci men Type: URINE SPECIMENOrdering Facility: [facility] Address: [address] [place] [address] Performed By: #### 2 4356-8 ####POWER LABORATORYCLIA [id number] [address] [place] [facility] CBC panel Auto (Bld)on 07-08 Erythrocyte distribution width (RBC) [Ratio] 13.0 % Normal 11.5-15.0 [facility] Comment on above: Order Comment: Speci men Type: BLOOD SPECIMENOrdering Facility: [facility] Address: [address] [place] [address] Performed By: #### 5 8410-2 ####[facility] LABORATORYCLIA [id number] [address] [place] Hematocrit (Bld) [Volume fraction] 46.5 % Normal 39.0-51.0 [facility] Comment on above: Order Comment: Speci men Type: BLOOD SPECIMENOrdering Facility: [facility] Address: [address] [place] [address] Performed By: #### 5 8410-2 ####POWER LABORATORYCLIA [id number] [address] [place] Hemoglobin (Bld) [Mass/Vol] 16.1 g/dL Normal 13.0-17.0 [facility] Comment on above: Order Comment: Speci men Type: BLOOD SPECIMENOrdering Facility: [facility] Address: [address] [place] [address] Performed By: #### 5 8410-2 ####POWER LABORATORYCLIA [id number] [address] [place] MCH (RBC) [Entitic mass] 32.7 pg Normal 26.0-34.0 [facility] Comment on above: Order Comment: Speci men Type: BLOOD SPECIMENOrdering Facility: [facility] Address: [address] [place] [address] Performed By: #### 5 8410-2 ####POWER LABORATORYCLIA [id number] [address] [place] MCHC (RBC) [Mass/Vol] 34.6 g/dL Normal 30.5-36.0 [facility] Comment on above: Order Comment: Speci men Type: BLOOD SPECIMENOrdering Facility: [facility] Address: [address] [place] [address] Performed By: #### 5 8410-2 ####POWER LABORATORYCLIA [id number] [address] [place] MCV (RBC) [Entitic vol] 94.3 fL Normal 80.0-100.0 [facility] Comment on above: Order Comment: Speci men Type: BLOOD SPECIMENOrdering Facility: [facility] Address: [address] [place] [address] Performed By: #### 5 8410-2 ####POWER LABORATORYCLIA [id number] [address] [place] Nucleated RBC (Bld) [#/Vol] 10*3/uL Normal <0.01 [facility] Comment on above: Order Comment: Speci men Type: BLOOD SPECIMENOrdering Facility: [facility] Address: [address] [place] [address] Performed By: #### 5 8410-2 ####POWER LABORATORYCLIA [id number] [place] [address] [place] Platelet mean volume (Bld) [Entitic vol] 9.3 fL Normal 9.0-12.7 [facility] Comment on above: Order Comment: Speci men Type: BLOOD SPECIMENOrdering Facility: [facility] Address: [address] [place] [address] Performed By: #### 5 8410-2 ####POWER LABORATORYCLIA [id number] [address] [place] Platelets (Bld) [#/Vol] 242 10*3/uL Normal 150-400 [facility] Comment on above: Order Comment: Speci men Type: BLOOD SPECIMENOrdering Facility: [facility] Address: [address] [place] [address] Performed By: #### 5 8410-2 ####POWER LABORATORYCLIA [id number] [place] [address] [place] RBC (Bld) [#/Vol] 4.93 10*6/uL Normal 4.20-6.00 [facility] Comment on above: Order Comment: Speci men Type: BLOOD SPECIMENOrdering Facility: [facility] Address: [address] [place] [address] Performed By: #### 5 8410-2 ####POWER LABORATORYCLIA [id number] [address] [place] WBC (Bld) [#/Vol] 10.39 10*3/uL Normal 3.70-11.00 [facility] Comment on above: Order Comment: Speci men Type: BLOOD SPECIMENOrdering Facility: [facility] Address: [address] [place] [address] Performed By: #### 5 8410-2 ####POWER LABORATORYCLIA [id number] [place] [address] [place] Comprehensive metabolic 2000 panelon 07-09-2023 Albumin [Mass/Vol] 5.3 g/dL High 3.9-4.9 [facility] Comment on above: Order Comment: Speci men Type: BLOOD SPECIMENOrdering Facility: [facility] Address: [address] [place] [address] Performed By: #### 2 4323-8 ####POWER LABORATORYCLIA [id number] [place] [address] [place] ALP [Catalytic activity/Vol] 124 U/L High 38-113 [facility] Comment on above: Order Comment: Speci men Type: BLOOD SPECIMENOrdering Facility: [facility] Address: [address] [place] [address] Performed By: #### 2 4323-8 ####POWER LABORATORYCLIA [id number] [address] [place] ALT [Catalytic activity/Vol] 74 U/L High 10-54 [facility] Comment on above: Order Comment: Speci men Type: BLOOD SPECIMENOrdering Facility: [facility] Address: [address] [place] [address] Performed By: #### 2 4323-8 ####POWER LABORATORYCLIA [id number] [address] [place] Anion gap [Moles/Vol] 22 mmol/L High 9-18 [facility] Comment on above: Order Comment: Speci men Type: BLOOD SPECIMENOrdering Facility: [facility] Address: [address] [place] [address] Performed By: #### 2 4323-8 ####POWER LABORATORYCLIA [id number] [address] [place] AST [Catalytic activity/Vol] 132 U/L High 14-40 [facility] Comment on above: Order Comment: Speci men Type: BLOOD SPECIMENOrdering Facility: [facility] Address: [address] [place] [address] Performed By: #### 2 4323-8 ####POWER LABORATORYCLIA [id number] [place] [address] [place] Bilirubin [Mass/Vol] 1.6 mg/dL High 0.2-1.3 [facility] Comment on above: Order Comment: Speci men Type: BLOOD SPECIMENOrdering Facility: [facility] Address: [address] [place] [address] Performed By: #### 2 4323-8 ####POWER LABORATORYCLIA [id number] [place] [address] [place] Calcium [Mass/Vol] 9.5 mg/dL Normal 8.5-10.2 [facility] Comment on above: Order Comment: Speci men Type: BLOOD SPECIMENOrdering Facility: [facility] Address: [address] [place] [address] Performed By: #### 2 4323-8 ####POWER LABORATORYCLIA [id number] [place] [address] [place] Chloride [Moles/Vol] 99 mmol/L Normal 97-105 [facility] Comment on above: Order Comment: Speci men Type: BLOOD SPECIMENOrdering Facility: [facility] Address: [address] [place] [address] Performed By: #### 2 4323-8 ####POWER LABORATORYCLIA [id number] [place] [address] [place] CO2 [Moles/Vol] 21 mmol/L Low 22-30 [facility] Comment on above: Order Comment: Speci men Type: BLOOD SPECIMENOrdering Facility: [facility] Address: [address] [place] [address] Performed By: #### 2 4323-8 ####POWER LABORATORYCLIA [id number] [place] [address] [place] Creatinine [Mass/Vol] 0.93 mg/dL Normal 0.73-1.22 [facility] Comment on above: Order Comment: Speci men Type: BLOOD SPECIMENOrdering Facility: [facility] Address: [address] [place] [address] Performed By: #### 2 4323-8 ####POWER LABORATORYCLIA [id number] [place] [id number] [place] Creatinine and Glomerular filtration rate.predicted panel (S/P/Bld) 96 mL/min/1.73m??? Normal >=60 [facility] Comment on above: Order Comment: Julianne lentz Type: BLOOD SPECIMENOrdering Facility: [facility] Address: [address] [place] [address] Result Comment: Antonieta mated Glomerular Filtration Rate (eGFR) is calculated using the 2020 CKD-EPI creatinine equation. This equation utilizes serum creatinine, sex, and age as parameters. The creatinine assay has traceable calibration to isotope dilution-mass spectrometry. Refer to KDIGO guidelines for clinical interpretation. In patients with unstable renal function, e.g. those with acute kidney injury, the eGFR may not accurately reflect actual GFR. Performed By: #### 2 4323-8 ####POWER LABORATORYCLIA [id number] [place] [address] [place] Glucose [Mass/Vol] 97 mg/dL Normal 74-99 [facility] Comment on above: Order Comment: Julianne lentz Type: BLOOD SPECIMENOrdering Facility: [facility] Address: [address] [place] [address] Result Comment: The [place] Diabetes Association (ADA) provides guidance for cutoff values for fasting glucose and random glucose. The ADA defines fasting as no caloric intake for at least 8 hours. Fasting plasma glucose results between 100 to 125 mg/dL indicate increased risk for diabetes (prediabetes). Fasting plasma glucose results greater than or equal to 126 mg/dL meet the criteria for diagnosis of diabetes. In the absence of unequivocal hyperglycemia, results should be confirmed by repeat testing. In a patient with classic symptoms of hyperglycemia or hyperglycemic crisis, random plasma glucose results greater than or equal to 200 mg/dL meet the criteria for diagnosis of diabetes. Reference: Standards of Medical Care in Diabetes 2016, [place] [employer] Association. Diabetes Care. 2016.39(Suppl 1). Performed By: #### 2 4323-8 ####POWER LABORATORYCLIA [id number] [place] [id number] [place] Potassium [Moles/Vol] 3.5 mmol/L Low 3.7-5.1 [facility] Comment on above: Order Comment: Speci men Type: BLOOD SPECIMENOrdering Facility: [facility] Address: [address] [place] [address] Performed By: #### 2 4323-8 ####POWER LABORATORYCLIA [id number] [address] Protein [Mass/Vol] 8.0 g/dL Normal 6.3-8.0 [facility] Comment on above: Order Comment: Speci men Type: BLOOD SPECIMENOrdering Facility: [facility] Address: [address] [place] [address] Performed By: #### 2 4323-8 ####POWER LABORATORYCLIA [id number] [address] Sodium [Moles/Vol] 142 mmol/L Normal 136-144 [facility] Comment on above: Order Comment: Speci men Type: BLOOD SPECIMENOrdering Facility: [facility] Address: [address] [place] [address] Performed By: #### 2 4323-8 ####POWER LABORATORYCLIA [id number] [address] Urea nitrogen [Mass/Vol] 20 mg/dL Normal 9-24 [facility] Comment on above: Order Comment: Speci men Type: BLOOD SPECIMENOrdering Facility: [facility] Address: [address] [place] [address] Performed By: #### 2 4323-8 ####POWER LABORATORYCLIA [id number] [address] ED NOTEon 07-09-2023 ED NOTE [place] ID: [id number] Author: YOSEF VINCENT RN Service: ? Author Type: Registered Nurse Type: ED Notes Filed: 07/09/2023 22:43 Note Text: Pt brought in by police. Pt pink slip but denies SI/HI. Pt has history of alcohol and drug abuse. Pt is very guarded. Pt appears to be under the influence. Pt no signs of with drawl at this time. Pt cooperative at this time. Pt states is cooperative a this time but is not under arrest Normal [facility] Ethanol SerPl-mCncon 024 Ethanol [Mass/Vol] mg/dL Normal <11 [facility] Comment on above: Order Comment: Speci men Type: BLOOD SPECIMENOrdering Facility: [facility] Address: [address] [place] [address] Performed By: #### 5 643-2 ####LITTLETON LABORATORYCLIA [id number] [place] [address] [place] ECG 12-LEADon 05-14-2022 ECG 12-LEAD IMPRESSION: Sinus rhythm Electronically Signed On 05-14-2022 16:18:10 EST by Cristofer Howell [facility] .Auto Diffon 04-08-2022 Basophil, Absolute 0.0 10 3/mcL Normal 0.0-0.3 [facility] ([place]) Comment on above: Performed By: #### A DIFF, ANEU, BMP, GFR, CBC #### [address] [address] Basophils/100 WBC (Bld) 0.5 % Normal 0.0-2.5 [facility] ([place]) Comment on above: Performed By: #### A DIFF, ANEU, BMP, GFR, CBC #### [address] [address] Eosinophil, Absolute 0.2 10 3/mcL Normal 0.0-0.7 [facility] ([place]) Comment on above: Performed By: #### A DIFF, ANEU, BMP, GFR, CBC #### [address] [address] Eosinophils/100 WBC (Bld) 5.4 % Normal 0.0-6.0 [facility] ([place] Comment on above: Performed By: #### A DIFF, ANEU, BMP, GFR, CBC #### [address] [address] Lymphocyte, Absolute 1.0 10 3/mcL Normal 0.9-4.3 [facility] ([place]) Comment on above: Performed By: #### A DIFF, ANEU, BMP, GFR, CBC #### [address] [address] Lymphocytes/100 WBC (Bld) 27.9 % Normal 20.0-40.0 [facility] ([place] Comment on above: Performed By: #### A DIFF, ANEU, BMP, GFR, CBC #### [address] [address] Monocyte, Absolute 0.5 10 3/mcL Normal 0.1-1.4 [facility] ([place]) Comment on above: Performed By: #### A DIFF, ANEU, BMP, GFR, CBC #### [address] [address] Monocytes/100 WBC (Bld) 13.5 % High 2.0-13.0 [facility] ([place] Comment on above: Performed By: #### A DIFF, ANEU, BMP, GFR, CBC #### [address] [address] Neutrophils/100 WBC (Bld) 52.7 % Normal 50.0-75.0 [facility] ([place] Comment on above: Performed By: #### A DIFF, ANEU, BMP, GFR, CBC #### [address] [address] .GFRon 04-08-2022 GFR >60 Normal [facility] ([place]) Comment on above: Result Comment: GFR Population mean for , Non- Americans Ages 20-29 = 116 mL/min/1.73 sq.m. Ages 30-39 = 107 mL/min/1.73 sq.m. Ages 40-49 = 99 mL/min/1.73 sq.m. Ages 50-59 = 93 mL/min/1.73 sq.m. Ages 60-69 = 85 mL/min/1.73 sq.m. Ages 70+ = 75 mL/min/1.73 sq.m. Chronic Kidney Disease: Less than 60 mL/min/1.73 square meters End Stage Renal Disease: Less than 15 mL/min/1.73 square meters Performed By: #### A DIFF, ANEU, BMP, GFR, CBC #### [address] [address] GFR Non- >60 Normal [facility] ([place] Comment on above: Result Comment: GFR Population mean for , Non- Americans Ages 20-29 = 116 mL/min/1.73 sq.m. Ages 30-39 = 107 mL/min/1.73 sq.m. Ages 40-49 = 99 mL/min/1.73 sq.m. Ages 50-59 = 93 mL/min/1.73 sq.m. Ages 60-69 = 85 mL/min/1.73 sq.m. Ages 70+ = 75 mL/min/1.73 sq.m. Chronic Kidney Disease: Less than 60 mL/min/1.73 square meters End Stage Renal Disease: Less than 15 mL/min/1.73 square meters Performed By: #### A DIFF, ANEU, BMP, GFR, CBC #### [address] [address] .NEUABSon 04-08-2022 Neutrophil, Absolute 1.9 10 3/mcL Low 2.3-8.1 [facility] ([place]) Comment on above: Performed By: #### A DIFF, ANEU, BMP, GFR, CBC #### [address] [address] BMPon 04-08-2022 BUN/Creatinine Ratio 21.3 ratio Normal 10.0-22.0 [facility] ([place]) Comment on above: Performed By: #### A DIFF, ANEU, BMP, GFR, CBC #### [address] [address] Calcium [Mass/Vol] 8.8 mg/dL Normal 8.7-10.4 Replaced by [facility] ([place]) Comment on above: Performed By: #### A DIFF, ANEU, BMP, GFR, CBC #### [address] [address] Chloride [Moles/Vol] 106 mmol/L Normal 98-110 [facility] ([place] Comment on above: Performed By: #### A DIFF, ANEU, BMP, GFR, CBC #### [address] [address] CO2 [Moles/Vol] 28 mmol/L Normal 22-32 [facility] ([place] Comment on above: Performed By: #### A DIFF, ANEU, BMP, GFR, CBC #### [place] [id number] Creatinine [Mass/Vol] 0.94 mg/dL Normal 0.60-1.40 [facility] ([place] Comment on above: Performed By: #### A DIFF, ANEU, BMP, GFR, CBC #### [place] [address] Electrolyte Balance 4.0 mEq/L Normal 4.0-15.0 [facility] ([place]) Comment on above: Performed By: #### A DIFF, ANEU, BMP, GFR, CBC #### [place] [id number] Glucose [Mass/Vol] 89 mg/dL Normal 70-110 Replaced [facility] ([place] Comment on above: Performed By: #### A DIFF, ANEU, BMP, GFR, CBC #### [place] [address] Potassium [Moles/Vol] 4.6 mmol/L Normal 3.5-5.0 [facility] ([place] Comment on above: Result Comment: Spec imen slightly hemolyzed. Performed By: #### A DIFF, ANEU, BMP, GFR, CBC #### [place] [address] Sodium [Moles/Vol] 138 mmol/L Normal 136-145 Replaced by [facility] ([place] Comment on above: Performed By: #### A DIFF, ANEU, BMP, GFR, CBC #### [place] [id number] Urea nitrogen [Mass/Vol] 20.0 mg/dL Normal 8.0-22.0 [facility] ([place] Comment on above: Performed By: #### A DIFF, ANEU, BMP, GFR, CBC #### [place] [address] CBCon 04-08-2022 Erythrocyte distribution width (RBC) [Ratio] 13.1 % Normal 11.5-15.5 [facility] ([place] Comment on above: Performed By: #### A DIFF, ANEU, BMP, GFR, CBC #### [address] [address] Hematocrit (Bld) [Volume fraction] 41.7 % Normal 40.0-52.0 [facility] ([place] Comment on above: Performed By: #### A DIFF, ANEU, BMP, GFR, CBC #### [place] [address] Hgb 14.3 G/dL Normal 13.0-17.5 [facility] ([place] Comment on above: Performed By: #### A DIFF, ANEU, BMP, GFR, CBC #### [place] [address] MCH (RBC) [Entitic mass] 33.0 pg Normal 27.0-33.0 [facility] ([place] Comment on above: Performed By: #### A DIFF, ANEU, BMP, GFR, CBC #### [place] [address] MCHC 34.2 G/dL Normal 32.0-36.0 [facility] ([place] Comment on above: Performed By: #### A DIFF, ANEU, BMP, GFR, CBC #### [place] [address] MCV (RBC) [Entitic vol] 96.4 fL Normal 81.0-100.0 [facility] ([place] Comment on above: Performed By: #### A DIFF, ANEU, BMP, GFR, CBC #### [place] [address] Platelet 247 10 3/mcL Normal 150-450 [facility] ([place] Comment on above: Performed By: #### A DIFF, ANEU, BMP, GFR, CBC #### [place] [address] Platelet mean volume (Bld) [Entitic vol] 7.1 fL Normal 6.4-10.5 [facility] ([place] Comment on above: Performed By: #### A DIFF, ANEU, BMP, GFR, CBC #### [place] [id number] RBC 4.33 10 6/mcL Low 4.50-6.00 [facility] ([place] Comment on above: Performed By: #### A DIFF, ANEU, BMP, GFR, CBC #### [address] [address] WBC 3.5 10 3/mcL Low 4.5-10.8 [facility] ([place] Comment on above: Performed By: #### A DIFF, ANEU, BMP, GFR, CBC #### [address] [address] LABORATORYOrdered By: SYSTEM SYSTEM on 04-08-2022 Basophils (Bld) [#/Vol] 0.0 103/mcL Invalid Interpretation Code 0.0 - 0.3 10^3/mcL Workflow SS Basophils/100 WBC (Bld) 0.5 % Invalid Interpretation Code 0.0 - 2.5 % AH Workflow SS Calcium [Mass/Vol] 8.8 mg/dL Invalid Interpretation Code 8.7 - 10.4 mg/dL ADM SS Chloride [Moles/Vol] 106 mmol/L Invalid Interpretation Code 98 - 110 mEq/L ADM SS CO2 [Moles/Vol] 28 mmol/L Invalid Interpretation Code 22 - 32 mEq/L ADM SS Creatinine [Mass/Vol] 0.94 mg/dL Invalid Interpretation Code 0.60 - 1.40 mg/dL ADM SS Electrolyte Balance 4.0 mEq/L Invalid Interpretation Code 4.0 - 15.0 mEq/L ADM SS Eosinophils (Bld) [#/Vol] 0.2 103/mcL Invalid Interpretation Code 0.0 - 0.7 10^3/mcL AH Workflow SS Eosinophils/100 WBC (Bld) 5.4 % Invalid Interpretation Code 0.0 - 6.0 % AH Workflow SS Erythrocyte distribution width (RBC) [Ratio] 13.1 % Invalid Interpretation Code 11.5 - 15.5 % AH Workflow SS GFR/1.73 sq M.predicted among blacks MDRD (S/P/Bld) [Vol rate/Area] ml/min/1.73sqm Invalid Interpretation Code ADM SS GFR/1.73 sq M.predicted among non-blacks MDRD (S/P/Bld) [Vol rate/Area] ml/min/1.73sqm Invalid Interpretation Code ADM SS Glucose [Mass/Vol] 89 mg/dL Invalid Interpretation Code 70 - 110 mg/dL ADM SS Hematocrit (Bld) [Volume fraction] 41.7 % Invalid Interpretation Code 40.0 - 52.0 % AH Workflow SS Hemoglobin (Bld) [Mass/Vol] 14.3 G/dL Invalid Interpretation Code 13.0 - 17.5 G/dL AH Workflow SS Lymphocytes (Bld) [#/Vol] 1.0 103/mcL Invalid Interpretation Code 0.9 - 4.3 10^3/mcL AH Workflow SS Lymphocytes/100 WBC (Bld) 27.9 % Invalid Interpretation Code 20.0 - 40.0 % AH Workflow SS MCH (RBC) [Entitic mass] 33.0 pg Invalid Interpretation Code 27.0 - 33.0 pg AH Workflow SS MCHC 34.2 G/dL Invalid Interpretation Code 32.0 - 36.0 G/dL AH Workflow SS MCV (RBC) [Entitic vol] 96.4 fL Invalid Interpretation Code 81.0 - 100.0 fL AH Workflow SS Monocytes (Bld) [#/Vol] 0.5 103/mcL Invalid Interpretation Code 0.1 - 1.4 10^3/mcL AH Workflow SS Monocytes/100 WBC (Bld) 13.5 % Invalid Interpretation Code 2.0 - 13.0 % AH Workflow SS Neutrophils (Bld) [#/Vol] 1.9 103/mcL Invalid Interpretation Code 2.3 - 8.1 10^3/mcL AH Workflow SS Neutrophils/100 WBC (Bld) 52.7 % Invalid Interpretation Code 50.0 - 75.0 % AH Workflow SS Platelet mean volume (Bld) [Entitic vol] 7.1 fL Invalid Interpretation Code 6.4 - 10.5 fL AH Workflow SS Platelets (Bld) [#/Vol] 247 103/mcL Invalid Interpretation Code 150 - 450 10^3/mcL AH Workflow SS Potassium [Moles/Vol] 4.6 mmol/L Invalid Interpretation Code 3.5 - 5.0 mEq/L ADM SS Comment on above: Result Comment: Spec imen slightly hemolyzed. RBC (Bld) [#/Vol] 4.33 106/mcL Invalid Interpretation Code 4.50 - 6.00 10^6/mcL AH Workflow SS Sodium [Moles/Vol] 138 mmol/L Invalid Interpretation Code 136 - 145 mEq/L ADM SS Urea nitrogen [Mass/Vol] 20.0 mg/dL Invalid Interpretation Code 8.0 - 22.0 mg/dL ADM SS Urea nitrogen/Creatinine [Mass ratio] 21.3 ratio Invalid Interpretation Code 10.0 - 22.0 ratio AH ADM SS WBC (Bld) [#/Vol] 3.5 103/mcL Invalid Interpretation Code 4.5 - 10.8 10^3/mcL AH Workflow SS .Auto Diffon 04-07-2022 Basophil, Absolute 0.0 10 3/mcL Normal 0.0-0.3 [facility] ([place] Comment on above: Performed By: #### A DIFF, ANEU, BMP, GFR, CBC #### [address] [address] Basophils/100 WBC (Bld) 0.6 % Normal 0.0-2.5 [facility] ([place] Comment on above: Performed By: #### A DIFF, ANEU, BMP, GFR, CBC #### [address] [address] Eosinophil, Absolute 0.2 10 3/mcL Normal 0.0-0.7 [facility] ([place]) Comment on above: Performed By: #### A DIFF, ANEU, BMP, GFR, CBC #### [address] [address] Eosinophils/100 WBC (Bld) 5.2 % Normal 0.0-6.0 [facility] ([place] Comment on above: Performed By: #### A DIFF, ANEU, BMP, GFR, CBC #### [address] [address] Lymphocyte, Absolute 1.1 10 3/mcL Normal 0.9-4.3 [facility] ([place] Comment on above: Performed By: #### A DIFF, ANEU, BMP, GFR, CBC #### [address] [address] Lymphocytes/100 WBC (Bld) 30.6 % Normal 20.0-40.0 [facility] ([place] Comment on above: Performed By: #### A DIFF, ANEU, BMP, GFR, CBC #### [address] [address] Monocyte, Absolute 0.5 10 3/mcL Normal 0.1-1.4 [facility] ([place] Comment on above: Performed By: #### A DIFF, ANEU, BMP, GFR, CBC #### [address] [address] Monocytes/100 WBC (Bld) 13.6 % High 2.0-13.0 [facility] ([place] Comment on above: Performed By: #### A DIFF, ANEU, BMP, GFR, CBC #### [address] [address] Neutrophils/100 WBC (Bld) 50.0 % Normal 50.0-75.0 [facility] ([place] Comment on above: Performed By: #### A DIFF, ANEU, BMP, GFR, CBC #### [address] [address] .GFRon 04-07-2022 GFR >60 Normal [facility] ([place] Comment on above: Result Comment: GFR Population mean for , Non- Americans Ages 20-29 = 116 mL/min/1.73 sq.m. Ages 30-39 = 107 mL/min/1.73 sq.m. Ages 40-49 = 99 mL/min/1.73 sq.m. Ages 50-59 = 93 mL/min/1.73 sq.m. Ages 60-69 = 85 mL/min/1.73 sq.m. Ages 70+ = 75 mL/min/1.73 sq.m. Chronic Kidney Disease: Less than 60 mL/min/1.73 square meters End Stage Renal Disease: Less than 15 mL/min/1.73 square meters Performed By: #### A DIFF, ANEU, BMP, GFR, CBC #### [address] [address] GFR Non- >60 Normal [facility] ([place] Comment on above: Result Comment: GFR Population mean for , Non- Americans Ages 20-29 = 116 mL/min/1.73 sq.m. Ages 30-39 = 107 mL/min/1.73 sq.m. Ages 40-49 = 99 mL/min/1.73 sq.m. Ages 50-59 = 93 mL/min/1.73 sq.m. Ages 60-69 = 85 mL/min/1.73 sq.m. Ages 70+ = 75 mL/min/1.73 sq.m. Chronic Kidney Disease: Less than 60 mL/min/1.73 square meters End Stage Renal Disease: Less than 15 mL/min/1.73 square meters Performed By: #### A DIFF, ANEU, BMP, GFR, CBC #### [address] [address] .NEUABSon 04-07-2022 Neutrophil, Absolute 1.9 10 3/mcL Low 2.3-8.1 [facility] ([place]) Comment on above: Performed By: #### A DIFF, ANEU, BMP, GFR, CBC #### [address] [address] BMPon 04-07-2022 BUN/Creatinine Ratio 15.6 ratio Normal 10.0-22.0 [facility] ([place] Comment on above: Performed By: #### A DIFF, ANEU, BMP, GFR, CBC #### [place] [address] Calcium [Mass/Vol] 9.0 mg/dL Normal 8.7-10.4 Replaced by [facility] ([place] Comment on above: Performed By: #### A DIFF, ANEU, BMP, GFR, CBC #### [place] [address] Chloride [Moles/Vol] 103 mmol/L Normal 98-110 [facility] ([place] Comment on above: Performed By: #### A DIFF, ANEU, BMP, GFR, CBC #### [place] [address] CO2 [Moles/Vol] 32 mmol/L Normal 22-32 [facility] ([place] Comment on above: Performed By: #### A DIFF, ANEU, BMP, GFR, CBC #### [place] [address] Creatinine [Mass/Vol] 0.96 mg/dL Normal 0.60-1.40 [facility] ([place] Comment on above: Performed By: #### A DIFF, ANEU, BMP, GFR, CBC #### [place] [address] Electrolyte Balance 1.0 mEq/L Low 4.0-15.0 [facility] ([place] Comment on above: Performed By: #### A DIFF, ANEU, BMP, GFR, CBC #### [address] [address] Glucose [Mass/Vol] 97 mg/dL Normal 70-110 Replaced by [facility] ([place] Comment on above: Performed By: #### A DIFF, ANEU, BMP, GFR, CBC #### [place] [address] Potassium [Moles/Vol] 4.8 mmol/L Normal 3.5-5.0 [facility] ([place] Comment on above: Performed By: #### A DIFF, ANEU, BMP, GFR, CBC #### [place] [id number] Sodium [Moles/Vol] 136 mmol/L Normal 136-145 Replaced by [facility] [place] Comment on above: Performed By: #### A DIFF, ANEU, BMP, GFR, CBC #### [place] [address] Urea nitrogen [Mass/Vol] 15.0 mg/dL Normal 8.0-22.0 [facility] ([place] Comment on above: Performed By: #### A DIFF, ANEU, BMP, GFR, CBC #### [address] [address] CBCon 04-07-2022 Erythrocyte distribution width (RBC) [Ratio] 13.4 % Normal 11.5-15.5 [facility] ([place] Comment on above: Performed By: #### A DIFF, ANEU, BMP, GFR, CBC #### [address] [address] Hematocrit (Bld) [Volume fraction] 41.1 % Normal 40.0-52.0 [facility] ([place] Comment on above: Performed By: #### A DIFF, ANEU, BMP, GFR, CBC #### [address] [address] Hgb 14.0 G/dL Normal 13.0-17.5 [facility] ([place] Comment on above: Performed By: #### A DIFF, ANEU, BMP, GFR, CBC #### [place] [id number] MCH (RBC) [Entitic mass] 33.1 pg High 27.0-33.0 [facility] ([place] Comment on above: Performed By: #### A DIFF, ANEU, BMP, GFR, CBC #### [place] [address] MCHC 33.9 G/dL Normal 32.0-36.0 [facility] ([place] Comment on above: Performed By: #### A DIFF, ANEU, BMP, GFR, CBC #### [place] [address] MCV (RBC) [Entitic vol] 97.5 fL Normal 81.0-100.0 [facility] ([place] Comment on above: Performed By: #### A DIFF, ANEU, BMP, GFR, CBC #### [place] [address] Platelet 233 10 3/mcL Normal 150-450 [facility] ([place] Comment on above: Performed By: #### A DIFF, ANEU, BMP, GFR, CBC #### [place] [address] Platelet mean volume (Bld) [Entitic vol] 7.0 fL Normal 6.4-10.5 [facility] [place] Comment on above: Performed By: #### A DIFF, ANEU, BMP, GFR, CBC #### [place] [address] RBC 4.22 10 6/mcL Low 4.50-6.00 [facility] [place] Comment on above: Performed By: #### A DIFF, ANEU, BMP, GFR, CBC #### [place] [address] WBC 3.7 10 3/mcL Low 4.5-10.8 [facility] ([place] Comment on above: Performed By: #### A DIFF, ANEU, BMP, GFR, CBC #### [place] [address] LABORATORYOrdered By: SYSTEM SYSTEM on 04-07-2022 Basophils (Bld) [#/Vol] 0.0 103/mcL Invalid Interpretation Code 0.0 - 0.3 10^3/mcL Workflow SS Basophils/100 WBC (Bld) 0.6 % Invalid Interpretation Code 0.0 - 2.5 % AH Workflow SS Calcium [Mass/Vol] 9.0 mg/dL Invalid Interpretation Code 8.7 - 10.4 mg/dL ADM SS Chloride [Moles/Vol] 103 mmol/L Invalid Interpretation Code 98 - 110 mEq/L ADM SS CO2 [Moles/Vol] 32 mmol/L Invalid Interpretation Code 22 - 32 mEq/L ADM SS Creatinine [Mass/Vol] 0.96 mg/dL Invalid Interpretation Code 0.60 - 1.40 mg/dL ADM SS Electrolyte Balance 1.0 mEq/L Invalid Interpretation Code 4.0 - 15.0 mEq/L ADM SS Eosinophils (Bld) [#/Vol] 0.2 103/mcL Invalid Interpretation Code 0.0 - 0.7 10^3/mcL Workflow SS Eosinophils/100 WBC (Bld) 5.2 % Invalid Interpretation Code 0.0 - 6.0 % Workflow SS Erythrocyte distribution width (RBC) [Ratio] 13.4 % Invalid Interpretation Code 11.5 - 15.5 % Workflow SS GFR/1.73 sq M.predicted among blacks MDRD (S/P/Bld) [Vol rate/Area] ml/min/1.73sqm Invalid Interpretation Code AH ADM SS GFR/1.73 sq M.predicted among non-blacks MDRD (S/P/Bld) [Vol rate/Area] ml/min/1.73sqm Invalid Interpretation Code ADM SS Glucose [Mass/Vol] 97 mg/dL Invalid Interpretation Code 70 - 110 mg/dL ADM SS Hematocrit (Bld) [Volume fraction] 41.1 % Invalid Interpretation Code 40.0 - 52.0 % Workflow SS Hemoglobin (Bld) [Mass/Vol] 14.0 G/dL Invalid Interpretation Code 13.0 - 17.5 G/dL AH Workflow SS Lymphocytes (Bld) [#/Vol] 1.1 103/mcL Invalid Interpretation Code 0.9 - 4.3 10^3/mcL Workflow SS Lymphocytes/100 WBC (Bld) 30.6 % Invalid Interpretation Code 20.0 - 40.0 % AH Workflow SS MCH (RBC) [Entitic mass] 33.1 pg Invalid Interpretation Code 27.0 - 33.0 pg AH Workflow SS MCHC 33.9 G/dL Invalid Interpretation Code 32.0 - 36.0 G/dL AH Workflow SS MCV (RBC) [Entitic vol] 97.5 fL Invalid Interpretation Code 81.0 - 100.0 fL AH Workflow SS Monocytes (Bld) [#/Vol] 0.5 103/mcL Invalid Interpretation Code 0.1 - 1.4 10^3/mcL AH Workflow SS Monocytes/100 WBC (Bld) 13.6 % Invalid Interpretation Code 2.0 - 13.0 % AH Workflow SS Neutrophils (Bld) [#/Vol] 1.9 103/mcL Invalid Interpretation Code 2.3 - 8.1 10^3/mcL AH Workflow SS Neutrophils/100 WBC (Bld) 50.0 % Invalid Interpretation Code 50.0 - 75.0 % AH Workflow SS Platelet mean volume (Bld) [Entitic vol] 7.0 fL Invalid Interpretation Code 6.4 - 10.5 fL AH Workflow SS Platelets (Bld) [#/Vol] 233 103/mcL Invalid Interpretation Code 150 - 450 10^3/mcL AH Workflow SS Potassium [Moles/Vol] 4.8 mmol/L Invalid Interpretation Code 3.5 - 5.0 mEq/L AH ADM SS RBC (Bld) [#/Vol] 4.22 106/mcL Invalid Interpretation Code 4.50 - 6.00 10^6/mcL AH Workflow SS Sodium [Moles/Vol] 136 mmol/L Invalid Interpretation Code 136 - 145 mEq/L AH ADM SS Urea nitrogen [Mass/Vol] 15.0 mg/dL Invalid Interpretation Code 8.0 - 22.0 mg/dL AH ADM SS Urea nitrogen/Creatinine [Mass ratio] 15.6 ratio Invalid Interpretation Code 10.0 - 22.0 ratio AH ADM SS WBC (Bld) [#/Vol] 3.7 103/mcL Invalid Interpretation Code 4.5 - 10.8 10^3/mcL AH Workflow SS .GFRon 04-06-2022 GFR >60 Normal [facility] ([place]) Comment on above: Result Comment: GFR Population mean for , Non- Americans Ages 20-29 = 116 mL/min/1.73 sq.m. Ages 30-39 = 107 mL/min/1.73 sq.m. Ages 40-49 = 99 mL/min/1.73 sq.m. Ages 50-59 = 93 mL/min/1.73 sq.m. Ages 60-69 = 85 mL/min/1.73 sq.m. Ages 70+ = 75 mL/min/1.73 sq.m. Chronic Kidney Disease: Less than 60 mL/min/1.73 square meters End Stage Renal Disease: Less than 15 mL/min/1.73 square meters Performed By: #### A DIFF, ANEU, BMP, GFR, CBC #### [address] [address] GFR Non- >60 Normal [facility] ([place]) Comment on above: Result Comment: GFR Population mean for , Non- Americans Ages 20-29 = 116 mL/min/1.73 sq.m. Ages 30-39 = 107 mL/min/1.73 sq.m. Ages 40-49 = 99 mL/min/1.73 sq.m. Ages 50-59 = 93 mL/min/1.73 sq.m. Ages 60-69 = 85 mL/min/1.73 sq.m. Ages 70+ = 75 mL/min/1.73 sq.m. Chronic Kidney Disease: Less than 60 mL/min/1.73 square meters End Stage Renal Disease: Less than 15 mL/min/1.73 square meters Performed By: #### A DIFF, ANEU, BMP, GFR, CBC #### [address] [address] BMPon 04-06-2022 BUN/Creatinine Ratio 15.3 ratio Normal 10.0-22.0 [facility] ([place]) Comment on above: Performed By: #### A DIFF, ANEU, BMP, GFR, CBC #### [address] [address] Calcium [Mass/Vol] 8.8 mg/dL Normal 8.7-10.4 Replaced by [facility] ([place]) Comment on above: Performed By: #### A DIFF, ANEU, BMP, GFR, CBC #### [address] [address] Chloride [Moles/Vol] 105 mmol/L Normal 98-110 [facility] ([place]) Comment on above: Performed By: #### A DIFF, ANEU, BMP, GFR, CBC #### [address] [address] CO2 [Moles/Vol] 27 mmol/L Normal 22-32 [facility] ([place]) Comment on above: Performed By: #### A DIFF, ANEU, BMP, GFR, CBC #### [address] [address] Creatinine [Mass/Vol] 0.85 mg/dL Normal 0.60-1.40 [facility] ([place]) Comment on above: Performed By: #### A DIFF, ANEU, BMP, GFR, CBC #### [address] [address] Electrolyte Balance 5.0 mEq/L Normal 4.0-15.0 [facility] ([place]) Comment on above: Performed By: #### A DIFF, ANEU, BMP, GFR, CBC #### [address] [address] Glucose [Mass/Vol] 105 mg/dL Normal 70-110 Replaced by [facility] ([place]) Comment on above: Performed By: #### A DIFF, ANEU, BMP, GFR, CBC #### [address] [address] Potassium [Moles/Vol] 3.4 mmol/L Low 3.5-5.0 [facility] ([place]) Comment on above: Result Comment: Spec imen slightly hemolyzed. Performed By: #### A DIFF, ANEU, BMP, GFR, CBC #### [address] [address] Sodium [Moles/Vol] 137 mmol/L Normal 136-145 Replaced by [facility] ([place]) Comment on above: Performed By: #### A DIFF, ANEU, BMP, GFR, CBC #### [address] [address] Urea nitrogen [Mass/Vol] 13.0 mg/dL Normal 8.0-22.0 [facility] ([place]) Comment on above: Performed By: #### A DIFF, ANEU, BMP, GFR, CBC #### [address] [address] LABORATORYOrdered By: SYSTEM SYSTEM on 04-06-2022 Calcium [Mass/Vol] 8.8 mg/dL Invalid Interpretation Code 8.7 - 10.4 mg/dL ADM SS Chloride [Moles/Vol] 105 mmol/L Invalid Interpretation Code 98 - 110 mEq/L ADM SS CO2 [Moles/Vol] 27 mmol/L Invalid Interpretation Code 22 - 32 mEq/L AH ADM SS Creatinine [Mass/Vol] 0.85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 Office Visit (ORTHWS ) ABIMAEL DAVE ([id number]) 1965 M Date Time Provider Department 10/06/20 9:00 AM YOSHI CERDA During your visit today, we recorded the following information about you: Yoshi Cerda MD 10/06/2020 11:19 PM Signed Yoshi Cerda MD Department of Orthopaedics Orthopa[facility] [address] [place] [id number] Dept: [phone] Dept October 06, 2020 CHIEF COMPLAINT: Post Op of the Right Index Finger and 4 weeks 2 days post op ORIF right index finger (Wound check). HPI atient states he still gets a sharp pain when he is doing certain things like putting his hand up onto the steering wheel of his car. States he is not been wearing the brace all the time and stopped his dressing changes a few days ago. Taking Percocet for the pain and states he only has 1/2 tablet left. AMB ROOMING INTAKE FLOWSHEET DATA Risk Screening Do you have concerns about personal safety or safety in the home?: No Pain Pain Level: 7 Pain Location: Hand-Right Description: Sharp Duration Amount of Time: (Ongoing) Frequency: Intermittent Intervention/Comfort measure: Medication P ASSESSMENT: S62.320D Closed displaced fracture of shaft of second metacarpal bone of right hand with routine healing, subsequent encounter SUMMARY/PLAN: He's doing SIGNIFICANTLY better. WOund has healed well and looks great now. His motion is so much better. Continue protection. Xrays in 1 month. Last pain prescription. Exam: Healed incision. Almost a full fist withou about 70 MCP motion. Imaging: Deferred today. Mr. Abimael Dave was advised as to contrast therapies and/or to take analgesics/anti-inflam matories as needed and all contraindications were reviewed. Supporting Information Below: Medications: Current Outpatient Medications Medication Sig - oxyCODONE-acetaminophe n (PERCOCET) 5-325 mg tablet Take 1 tablet by mouth every 6 hours as needed for up to 7 days. - hydroCHLOROthiazide (HYDRODIURIL, ESIDRIX) 25 mg tablet Take 25 mg by mouth once daily. - lisinopril (ZESTRIL, PRINIVIL) 10 mg tablet Take 10 mg by mouth once daily. - ibuprofen (MOTRIN) 600 mg tablet Take 600 mg by mouth. - amLODIPine (NORVASC) 5 mg tablet Take 10 mg by mouth once daily. (Patient not taking: Reported on 09/01/2020 ) - pantoprazole DR (PROTONIX) 40 mg tablet Take 40 mg by mouth. (Patient not taking: Reported on 09/01/2020 ) - ibuprofen (MOTRIN) 800 mg tablet Take 800 mg by mouth as needed. (Patient not taking: Reported on 09/01/2020 ) No current facility-administered medications for this visit. Allergies: Bactrim [Sulfamethoxazole-Trim ethoprim] Yoshi Cerda MD Referring Provider: YOSHI CERDA [[id number]] Allergies As of Date: 10/06/2020 Noted Allergy Reaction BACTRIM (SULFAMETHOXAZOLE-TRIM ETH*09/22/2020 8 - GI Upset Comments: vomiting Date Reviewed: 10/06/2020 Reviewed by: Yoshi Cerda MD - Fully Assessed Reason for Visit: 4 weeks 2 days post op ORIF right index finger [Other] Cmt: Wound check Post Op [174] Visit Diagnosis:Closed displaced fracture of shaft of second metacarpal bone of right hand with routine healing, subsequent encounter [X32.416Z] Order(s):oxyCODONE-karan taminophen (PERCOCET) 5-325 mg tabletTake 1 tablet by mouth every 6 hours as needed for up to 7 days.Disp: 10 tabletRfl: 0 Prescriptions as of 10/06/2020 - oxyCODONE-acetaminophe n (PERCOCET) 5-325 mg tablet Take 1 tablet by mouth every 6 hours as needed for up to 7 days. - hydroCHLOROthiazide (HYDRODIURIL, ESIDRIX) 25 mg tablet Take 25 mg by mouth once daily. - lisinopril (ZESTRIL, PRINIVIL) 10 mg tablet Take 10 mg by mouth once daily. - amLODIPine (NORVASC) 5 mg tablet Take 10 mg by mouth once daily. - ibuprofen (MOTRIN) 600 mg tablet Take 600 mg by mouth. - pantoprazole DR (PROTONIX) 40 mg tablet Take 40 mg by mouth. - ibuprofen (MOTRIN) 800 mg tablet Take 800 mg by mouth as needed. Problem List As Of Date 10/06/2020 Noted Resolved Hepatitis C [B19.20] 04/06/2014 Prescriptions ordered this encounter Disp Refills Start End OXYCODONE-ACETAMINOPHE N 5 MG-325 MG * 10 t* 0 10/06/2020 10/13/2020 Route: ORAL Sig: Take 1 tablet by mouth every 6 hours as needed for up to 7 days. Medications Discontinued During This Encounter Prescriptions - oxyCODONE-acetaminophe n (PERCOCET) 5-325 mg tablet (Discontinued) Take 1 tablet by mouth every 6 hours as needed for up to 7 days. Encounter Status:Closed by YOSHI CERDA on 10/06/20 [facility] OBSOLETEon 10-03-2020 OBSOLETE Refill (ORTHWS) ABIMAEL DAVE ([id number]) 1965 M Date Time Provider Department 10/03/20 GRISELDA KEARNS During your visit today, we recorded the following information about you: Nickie Mckeon Ma 10/03/2020 11:45 AM Signed Patient has been identified by name and date of : Yes Pending Prescriptions Disp Refills OXYCODONE-ACETAMINOPHE N 5 MG-325 MG TABLET 10 tablet 0 Sig: Take 1 tablet by mouth every 6 hours as needed for up to 7 days. RACHAEL Class: C-II NADYA: No RX INSTRUCTIONS: Patient aware RX will be sent to pharmacy. No need to notify patient. Patient has appointment on 10/06/2020. Nickie Parrish Ma 10/04/2020 12:51 PM Signed Patient called again regarding below. Allergies As of Date: 10/03/2020 Noted Allergy Reaction BACTRIM (SULFAMETHOXAZOLE-TRIM ETH*09/22/2020 8 - GI Upset Comments: vomiting Date Reviewed: 09/22/2020 Reviewed by: Angela Hoyt RN - Fully Assessed Reason for Visit: Refill Request [94] Visit Diagnosis:Closed displaced fracture of shaft of second metacarpal bone of right hand with routine healing, subsequent encounter [C17.674J] Order(s):oxyCODONE-karan taminophen (PERCOCET) 5-325 mg tabletTake 1 tablet by mouth every 6 hours as needed for up to 7 days.Disp: 5 tabletRfl: 0 Prescriptions as of 10/04/2020 - oxyCODONE-acetaminophe n (PERCOCET) 5-325 mg tablet Take 1 tablet by mouth every 6 hours as needed for up to 7 days. - hydroCHLOROthiazide (HYDRODIURIL, ESIDRIX) 25 mg tablet Take 25 mg by mouth once daily. - lisinopril (ZESTRIL, PRINIVIL) 10 mg tablet Take 10 mg by mouth once daily. - amLODIPine (NORVASC) 5 mg tablet Take 10 mg by mouth once daily. - ibuprofen (MOTRIN) 600 mg tablet Take 600 mg by mouth. - pantoprazole DR (PROTONIX) 40 mg tablet Take 40 mg by mouth. - ibuprofen (MOTRIN) 800 mg tablet Take 800 mg by mouth as needed. Problem List As Of Date 10/03/2020 Noted Resolved Hepatitis C [B19.20] 04/06/2014 Prescriptions ordered this encounter Disp Refills Start End OXYCODONE-ACETAMINOPHE N 5 MG-325 MG * 5 ta* 0 10/04/2020 10/11/2020 Route: ORAL Sig: Take 1 tablet by mouth every 6 hours as needed for up to 7 days. Medications Discontinued During This Encounter Prescriptions - oxyCODONE-acetaminophe n (PERCOCET) 5-325 mg tablet (Discontinued) Take 1 tablet by mouth every 6 hours as needed for up to 7 days. Encounter Status:Closed by GRISELDA KEARNS on 10/04/20 [facility] OBSOLETEon 09-29-2020 OBSOLETE Refill (FAVIO) ABIMAEL DAVE ([id number]) 1965 [place] Date Time Provider Department 09/29/20 YOSHI CERDA During your visit today, we recorded the following information about you: Nickie Mckeon Ma 09/29/2020 1:47 PM Signed Patient has been identified by name and date of : Yes Pending Prescriptions Disp Refills OXYCODONE-ACETAMINOPHE N 5 MG-325 MG TABLET 28 tablet 0 Sig: Take 1 tablet by mouth every 6 hours as needed for up to 7 days. RACHAEL Class: C-II NADYA: No RX INSTRUCTIONS: Patient aware RX will be sent to pharmacy. No need to notify patient. Confirmed [facility] as [facility] Nickie Mckeon Ma Allergies As of Date: 09/29/2020 Noted Allergy Reaction BACTRIM (SULFAMETHOXAZOLE-TRIM ETH*09/22/2020 8 - GI Upset Comments: vomiting Date Reviewed: 09/22/2020 Reviewed by: Angela Hoyt RN - Fully Assessed Reason for Visit: Refill Request [94] Visit Diagnosis:Closed displaced fracture of shaft of second metacarpal bone of right hand with routine healing, subsequent encounter [A10.855T] Order(s):oxyCODONE-karan taminophen (PERCOCET) 5-325 mg tabletTake 1 tablet by mouth every 6 hours as needed for up to 7 days.Disp: 10 tabletRfl: 0 Prescriptions as of 09/29/2020 - oxyCODONE-acetaminophe n (PERCOCET) 5-325 mg tablet Take 1 tablet by mouth every 6 hours as needed for up to 7 days. - sulfamethoxazole-trime thoprim (BACTRIM DS) 800-160 mg per tablet Take 1 tablet by mouth twice daily for 10 days. - hydroCHLOROthiazide (HYDRODIURIL, ESIDRIX) 25 mg tablet Take 25 mg by mouth once daily. - lisinopril (ZESTRIL, PRINIVIL) 10 mg tablet Take 10 mg by mouth once daily. - amLODIPine (NORVASC) 5 mg tablet Take 10 mg by mouth once daily. - ibuprofen (MOTRIN) 600 mg tablet Take 600 mg by mouth. - pantoprazole DR (PROTONIX) 40 mg tablet Take 40 mg by mouth. - ibuprofen (MOTRIN) 800 mg tablet Take 800 mg by mouth as needed. Problem List As Of Date 09/29/2020 Noted Resolved Hepatitis C [B19.20] 04/06/2014 Prescriptions ordered this encounter Disp Refills Start End OXYCODONE-ACETAMINOPHE N 5 MG-325 MG * 10 t* 0 09/29/2020 10/06/2020 Route: ORAL Sig: Take 1 tablet by mouth every 6 hours as needed for up to 7 days. Medications Discontinued During This Encounter Prescriptions - oxyCODONE-acetaminophe n (PERCOCET) 5-325 mg tablet (Discontinued) Take 1 tablet by mouth every 6 hours as needed for up to 7 days. Encounter Status:Closed by NICKIE MCKEON MA on 09/29/20 [facility] CNOVon 09-22-2020 CNOV Office Visit (ORTHWS ) ABIMAEL DAVE ([id number]) 1965 M Date Time Provider Department 09/22/20 11:45 AM YOSHI CERDA During your visit today, we recorded the following information about you: Yoshi Cerda MD 10/20/2020 10:25 AM Signed Yoshi Cerda MD Department of Orthopaedics Orthopaedics [address] [facility] [address] Dept: [phone] Dept September 22, 2020 CHIEF COMPLAINT: Follow Up of the Right Index Finger and 2 weeks 2 days post op ORIF right index finger (wound check). HPI t. states he took 2 or 3 of Bactrim, then drank new beer and threw up, so has not taken any more antibiotics. Incision remains reddened and edematous, but pt. states less painful as he has been taking more pain meds. He does not give direct answer about how many or how often, but he is running low. He states he takes 1 or 2 when ever he has pain. Pt. also has entire hand and wrist wrapped with Webril, and another form of stockinette type material. Explained to pt. that this is not necessary and holds in moisture. Wound redressed with AMB ROOMING INTAKE FLOWSHEET DATA Risk Screening Do you have concerns about personal safety or safety in the home?: No Pain Pain Level: 6 Pain Location: Hand-Right Description: Aching Duration Amount of Time: 2 Duration Units: Weeks (2 days) Frequency: Continuous Intervention: Medication, Splinting p ASSESSMENT: S62.320D Closed displaced fracture of shaft of second metacarpal bone of right hand with routine healing, subsequent encounter (primary encounter diagnosis) SUMMARY/PLAN: His hand already looks significantly improved from last week. No current signs of infection and the swelling and the redness is much improved. Continue dressing changes and splinting. We will see him back in a number of weeks. Mr. Abimael Dave was advised as to contrast therapies and/or to take analgesics/anti-inflam matories as needed and all contraindications were reviewed. Supporting Information Below: Medications: Current Outpatient Medications Medication Sig - sulfamethoxazole-trime thoprim (BACTRIM DS) 800-160 mg per tablet Take 1 tablet by mouth twice daily for 10 days. - oxyCODONE-acetaminophe n (PERCOCET) 5-325 mg tablet Take 1-2 tablets by mouth every 4 hours as needed for up to 7 days. - hydroCHLOROthiazide (HYDRODIURIL, ESIDRIX) 25 mg tablet Take 25 mg by mouth once daily. - lisinopril (ZESTRIL, PRINIVIL) 10 mg tablet Take 10 mg by mouth once daily. - amLODIPine (NORVASC) 5 mg tablet Take 10 mg by mouth once daily. (Patient not taking: Reported on 09/01/2020 ) - ibuprofen (MOTRIN) 600 mg tablet Take 600 mg by mouth. - pantoprazole DR (PROTONIX) 40 mg tablet Take 40 mg by mouth. (Patient not taking: Reported on 09/01/2020 ) - ibuprofen (MOTRIN) 800 mg tablet Take 800 mg by mouth as needed. (Patient not taking: Reported on 09/01/2020 ) No current facility-administered medications for this visit. Allergies: Patient has no known allergies. Yoshi Cerda MD Referring Provider: YOSHI CERDA [[id number]] Allergies As of Date: 09/22/2020 Noted Allergy Reaction BACTRIM (SULFAMETHOXAZOLE-TRIM ETH*09/22/2020 8 - GI Upset Comments: vomiting Date Reviewed: 09/22/2020 Reviewed by: Angela Hoyt RN - Fully Assessed Reason for Visit: 2 weeks 2 days post op ORIF right index finger [Other] Cmt: wound check Follow Up [171] Primary Visit Diagnosis:Closed displaced fracture of shaft of second metacarpal bone of right hand with routine healing, subsequent encounter [S62.320D] Prescriptions as of 10/20/2020 - hydroCHLOROthiazide (HYDRODIURIL, ESIDRIX) 25 mg tablet Take 25 mg by mouth once daily. - lisinopril (ZESTRIL, PRINIVIL) 10 mg tablet Take 10 mg by mouth once daily. - amLODIPine (NORVASC) 5 mg tablet Take 10 mg by mouth once daily. - ibuprofen (MOTRIN) 600 mg tablet Take 600 mg by mouth. - pantoprazole DR (PROTONIX) 40 mg tablet Take 40 mg by mouth. - ibuprofen (MOTRIN) 800 mg tablet Take 800 mg by mouth as needed. Problem List As Of Date 09/22/2020 Noted Resolved Hepatitis C [B19.20] 04/06/2014 Prescriptions ordered this encounter Disp Refills Start End OXYCODONE-ACETAMINOPHE N 5 MG-325 MG * 28 t* 0 09/22/2020 09/29/2020 Route: ORAL Sig: Take 1 tablet by mouth every 6 hours as needed for up to 7 days. Medications Discontinued During This Encounter Prescriptions - oxyCODONE-acetaminophe n (PERCOCET) 5-325 mg tablet (Discontinued) Take 1-2 tablets by mouth every 4 hours as needed for up to 7 days. Encounter Status:Closed by [facility]DA [facility] (FAVIO ) ABIMAEL DAVE ([id number]) 1965 M Date Time Provider Department 09/19/20 1:45 PM YOSHI CERDA During your visit today, we recorded the following information about you: Yoshi Cerda MD 09/20/2020 10:57 PM Signed Yoshi Cerda MD Department of Orthopaedics Orthopaedics [address] [place] [id number] Dept: [phone] Dept September 19, 2020 CHIEF COMPLAINT: Post Op of the Right Index Finger and 1 week 6 days post op ORIF right index finger (xray OOP). HPI Pt. states he ran out of Percocet last night. He states he has a tolerance to narcotic pain medication because of past surgeries and alcohol abuse, although he states he has been clean and sober for the past 10 years. HSe phone encounter. Incision reddened and swollen . He has been removing splint and stated that he has been squeezing it to get blood and pus out of it before you take stitches out. He denies fever. AMB ROOMING INTAKE FLOWSHEET DATA Pain Pain Level: 9 Pain Location: Hand-Right Description: Aching, Burning Duration Amount of Time: 1 Duration Units: Weeks (6 days) Frequency: Continuous Intervention: Medication, Splinting Comments: ibuprofen ASSESSMENT: S62.310A Displaced fracture of base of second metacarpal bone, right hand, initial encounter for closed fracture (primary encounter diagnosis) SUMMARY/PLAN: Pt is all over the place today. I'm not entirely sure what to say about his surgical wound. It looks grossly inflamed, irritated, etc. He explains that he took his splint off. He told the nurse he was putting alcohol on it like last time, but he tells me he didn't put anything on it. He then told me that he hasn't been doing anything with it and then follows with that he was doing yard work. The suture line looks greatly swollen an irritated. No drainage. I would start an antibiotic to be on the safe side. I would like to see it again on . I'll give him a new pain prescription for now. We'll re-splint. Exam: As above Imaging: IMPRESSION: UP REDUCTION INTERNAL FIXATION OF A SECOND METACARPAL FRACTURE NEW SINCE THE PREVIOUS EXAM. HEALED FOURTH METACARPAL FRACTURE WITH PLATE AND SCREW FIXATION. 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 Transcribe Date/Time: Sep 19 2020 ?7:42P Dictated by : ORLANDO CAIN MD This examination was interpreted and the report reviewed and electronically signed by: ORLANDO CAIN MD on Sep 19 2020 ?7:46PM ?EST Results-Findings * * *Final Report* * * DATE OF EXAM: Sep 19 2020 ?3:10PM ? WRX ? 5346 ?- ?XR HAND 3V PA/LAT/OBL RT ?/ PROCEDURE REASON: Closed displaced fracture of phalanx of right index finger, unspecified phalanx, ?? ? * * * * Physician Interpretation * * * * ?HISTORY: 54-YEAR-OLD MALE WITH ? Closed displaced fracture of phalanx of right index finger, unspecified phalanx, initial encounter ? . ?2 week follow up to right hand fracture TECHNIQUE: XR HAND 3V PA/LAT/OBL RT ?? Laterality: ?RIGHT ?? Number of different views (projections): 3 COMPARISON: 05/30/2020 RESULT: ?Plate and screw fixation for a healed fourth metacarpal fracture and plate and screw fixation for a second metacarpal fracture with a cortical fragment in a slightly displaced position in a volar direction. ? Soft tissue swelling around the hand. ?Bones and joints otherwise intact and unchanged. Mr. Abimael Dave was advised as to contrast therapies and/or to take analgesics/anti-inflam matories as needed and all contraindications were reviewed. Supporting Information Below: Medications: Current Outpatient Medications Medication Sig - hydroCHLOROthiazide (HYDRODIURIL, ESIDRIX) 25 mg tablet Take 25 mg by mouth once daily. - lisinopril (ZESTRIL, PRINIVIL) 10 mg tablet Take 10 mg by mouth once daily. - ibuprofen (MOTRIN) 600 mg tablet Take 600 mg by mouth. - oxyCODONE-acetaminophe n (PERCOCET) 5-325 mg tablet Take 1 tablet by mouth every 6 hours as needed. (Patient not taking: Reported on 09/19/2020) - amLODIPine (NORVASC) 5 mg tablet Take 10 mg by mouth once daily. (Patient not taking: Reported on 09/01/2020 ) - pantoprazole DR (PROTONIX) 40 mg tablet Take 40 mg by mouth. (Patient not taking: Reported on 09/01/2020 ) - ibuprofen (MOTRIN) 800 mg tablet Take 800 mg by mouth as needed. (Patient not taking: Reported on 09/01/2020 ) No current facility-administered medications for this visit. Allergies: Patient has no known allergies. MD Angela Stout RN 09/20/2020 10:57 PM Signed Applied Adaptic, sterile gauze 4x4 and TKO Knuckle Orthosis SPlint to Right hand Patient has been instructed in Care and proper application of brace. Pt. given supplies to change dressing daily and instructed to keep clean and dry until seen again on 09-22-20. Angela Vizcarra (more content not included)... Normal [facility] 09-19-2020 CNPN Telephone (TRINOWS) ABIMAEL DAVE ([id number]) 1965 M Date Time Provider Department 09/19/20 YOSHI CERDA During your visit today, we recorded the following information about you: Angela Hoyt RN 09/19/2020 5:22 PM Signed Pt. need f/u appt. on 09-22-2020. Scheduled and LM with time and date and request for pt. to call office to confirm. Angela Hoyt RN 09/20/2020 1:24 PM Signed Left a second message with time and date of f/u and request to call office to confirm. Nickie Mckeon Ma 09/23/2020 8:15 AM Signed Patient seen in office on 09/22/2020. Allergies As of Date: 09/19/2020 (No Known Allergies) Date Reviewed: 09/19/2020 Reviewed by: Angela Hoyt RN - Fully Assessed Reason for Visit: f/u appt. [Other] Prescriptions as of 09/23/2020 - oxyCODONE-acetaminophe n (PERCOCET) 5-325 mg tablet Take 1 tablet by mouth every 6 hours as needed for up to 7 days. - sulfamethoxazole-trime thoprim (BACTRIM DS) 800-160 mg per tablet Take 1 tablet by mouth twice daily for 10 days. - hydroCHLOROthiazide (HYDRODIURIL, ESIDRIX) 25 mg tablet Take 25 mg by mouth once daily. - lisinopril (ZESTRIL, PRINIVIL) 10 mg tablet Take 10 mg by mouth once daily. - amLODIPine (NORVASC) 5 mg tablet Take 10 mg by mouth once daily. - ibuprofen (MOTRIN) 600 mg tablet Take 600 mg by mouth. - pantoprazole DR (PROTONIX) 40 mg tablet Take 40 mg by mouth. - ibuprofen (MOTRIN) 800 mg tablet Take 800 mg by mouth as needed. Problem List As Of Date 09/19/2020 Noted Resolved Hepatitis C [B19.20] 04/06/2014 Encounter Status:Closed by NICKIE MCKEON MA on 09/23/20 [facility] XR HAND 3V PA/LAT/OBL RTon 0 09-19-2020 XR HAND 3V PA/LAT/OBL RT * * *Final Report* * * DATE OF EXAM: Sep 19 2020 3:10PM WRX 5346 - XR HAND 3V PA/LAT/OBL RT / PROCEDURE REASON: Closed displaced fracture of phalanx of right index finger, unspecified phalanx, * * * * Physician Interpretation * * * * HISTORY: 54-YEAR-OLD MALE WITH Closed displaced fracture of phalanx of right index finger, unspecified phalanx, initial encounter . 2 week follow up to right hand fracture TECHNIQUE: XR HAND 3V PA/LAT/OBL RT Laterality: RIGHT Number of different views (projections): 3 COMPARISON: 05/30/2020 RESULT: Plate and screw fixation for a healed fourth metacarpal fracture and plate and screw fixation for a second metacarpal fracture with a cortical fragment in a slightly displaced position in a volar direction. Soft tissue swelling around the hand. Bones and joints otherwise intact and unchanged. IMPRESSION: UP REDUCTION INTERNAL FIXATION OF A SECOND METACARPAL FRACTURE NEW SINCE THE PREVIOUS EXAM. HEALED FOURTH METACARPAL FRACTURE WITH PLATE AND SCREW FIXATION. [employer] Maker: [id number] Transcribe Date/Time: Sep 19 2020 7:42P Dictated by : ORLANDO CAIN MD This examination was interpreted and the report reviewed and electronically signed by: ORLANDO CAIN MD on Sep 19 2020 7:46PM EST [id number] [facility] 09-13-2020 CNPN Telephone (Outski) JOLIEABIMAELRACH ([id number]) 1965 M Date Time Provider Department 09/13/20 YOSHI CERDA During your visit today, we recorded the following information about you: Angela Hoyt RN 09/13/2020 10:16 AM Signed Pt. called asking if pain med has been filled? He is upset, because he states he called yesterday, and states initially pharmacy shorted him 4 pills, and only gave him 38 instead of 42, so he ran out sooner. Explained that medication has been sent to pharmacy while he has been talking on phone with nurse. Spent 20 minutes on phone with pt. who uses rapid pressured speech and states he is very anxious because he feels like he is being lazy, he needs to mow his lawn, and he is having pain, which he rates an 8 with swelling, and does not understand why it hurts so much. He admits to overuse of his hand the first few days after surgery and states he has been removing splint, showering and changing dressings. He states wound is pink, not red and denies drainage. He denies fever. He states he would feel better if it would bleed, because it would get infection out, if it was infected. Asked him if he has been squeezing wound to try to get it to bleed? He denies. He states he has cleaned incision with alcohol and has been using neosporin on wound. He has been running cold water over wound. Pt. instructed not to clean wound with alcohol, or use neosporin. Explained that alcohol can compromise skin integrity and lead to staph infection. Instructed to leave splint on, and that as long as clean and dry, no need to keep removing splint and dressing, as every time he removes, his hand moves at fx site, and causes irritation, resulting in increased pain. He states he has been elevating above heart level and using ice, and yet he states he has been using right forearm to do things. Again, instructed to rest, ice and elevate. Reviewed signs of infection with pt. to include increasing redness of incision, increasing pain with rest, drainage, or fever, and instructed that he needs to call office if these things occur, and that he should not be taking more pain medication so that he can do more. Pt. verbalizes understanding. Any further advise?. Griselda Kearns PA-C 09/13/2020 11:03 AM Signed Agree with advice given, appreciate you taking time to address his concerns. Allergies As of Date: 09/13/2020 (No Known Allergies) Date Reviewed: 09/06/2020 Reviewed by: Lesly Holbrook RN - Fully Assessed Reason for Visit: Multiple Concerns [253] Prescriptions as of 09/13/2020 Sig: OXYCODONE-ACETAMINOPHE N 5 MG-* Take 1 tablet by mouth every * HYDROCHLOROTHIAZIDE 25 MG TAB* Take 25 mg by mouth once marcie* LISINOPRIL 10 MG TABLET Take 10 mg by mouth once marcie* AMLODIPINE 5 MG TABLET Take 10 mg by mouth once marcie* Patient not taking: Reported on 09/01/2020 IBUPROFEN 600 MG TABLET Take 600 mg by mouth. PANTOPRAZOLE 40 MG TABLET,DEL* Take 40 mg by mouth. Patient not taking: Reported on 09/01/2020 IBUPROFEN 800 MG TABLET Take 800 mg by mouth as neede*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 with the patient in the supine position. Images were obtained using a [place] i700 Aplio vascular ultrasound machine. ----- Venous flow and imaging: + ---+ +-- ----+ +Location +Overall +Properties + + ---+ +-- ----+ +R CFV +Patent +Normal phasicity; + + + +spontaneous; normal + + + +augmentation; compressible + + ---+ +-- ----+ +R saphenofemoral +Patent +Compressible + +junction + + + + ---+ +-- ----+ +R profunda femoral +Patent +Normal phasicity; + + + +spontaneous; normal + + + +augmentation + + ---+ +-- ----+ +R FV - prox. +Patent +Compressible + + ---+ +-- ----+ +R FV - mid +Patent +Normal phasicity; + + + +spontaneous; normal + + + +augmentation; compressible + + ---+ +-- ----+ +R FV - distal +Patent +Compressible + + ---+ +-- ----+ +R popliteal +Patent +Normal phasicity; + + + +spontaneous; normal + + + +augmentation; compressible + + ---+ +-- ----+ +R gastrocnemius +Patent +Compressible + + ---+ +-- ----+ +R PTV +Patent +Compressible + + ---+ +-- ----+ +R peroneal +Patent +Compressible + + ---+ +-- ----+ +R soleal +Difficult study+ + + ---+ +-- ----+ +R GSV +Patent +Compressible + + ---+ +-- ----+ Prepared and electronically signed by Gregory Main MD 03/14/2020 13:37 [place], [place] VL Venous Duplex US Lower Ex t [place] 03-14-2020 VL Venous Duplex US Lower Ext Right Patient Name: ABIMAEL DAEV Ultrasound ACCESSION EXAM DATE/TIME PROCEDURE ORDERING PROVIDER [id number] 03/14/2020 13:03 EST VL Venous Duplex US MD PATRIZIA, KAIT Gruber Lower Ext Right CPT code 80122 Reason For Exam (VL Venous Duplex US Lower Ext Right) Right leg pain from repetitive trauma. Evaluate for deep vein thrombosis. Report [facility] ----- Right Lower Extremity Venous Duplex Report Patient Abimael Dave : 1965 Study 03/14/2020 Name: Evi (54yrs) Date: Age: 54 Account: [id number] Gender: M Loc: 3EGR BP: Ordering Physician: Kait Howell Patient Services Manager: Padmini Mcnair RDMS, RVT Interpreting Physician: Gregory Main MD ----- [facility] ----- Indications: Nancytent states right calf pain and swelling for weeks, unsure of exact time frame.. ----- Conclusions 1. There is no evidence of acute deep or superficial venous thrombosis noted in the right lower extremity. 2. The left common femoral vein fully compresses and demonstrates normal venous flow. ----- History: History of right leg trauma and right back surgery. Risk factors: No risk factors for vascular disease. ----- Study data: Right lower extremity venous duplex evaluation. Right lateral evaluation with grayscale 2D imaging, color Doppler imaging, and spectral Doppler analysis. Procedure: A vascular evaluation was performed with the patient in the supine position. Images were obtained using a [employer] i700 [employer] vascular ultrasound machine. Ultrasound Report ----- Venous flow and imaging: + ---+ +-- ----+ +Location +Overall +Properties + + ---+ +-- ----+ +R CFV +Patent +Normal phasicity; + + + +spontaneous; normal + + + +augmentation; compressible + + ---+ +-- ----+ +R saphenofemoral +Patent +Compressible + +junction + + + + ---+ +-- ----+ +R profunda femoral +Patent +Normal phasicity; + + + +spontaneous; normal + + + +augmentation + + ---+ +-- ----+ +R FV - prox. +Patent +Compressible + + ---+ +-- ----+ +R FV - mid +Patent +Normal phasicity; + + + +spontaneous; normal + + + +augmentation; compressible + + ---+ +-- ----+ +R FV - distal +Patent +Compressible + + ---+ +-- ----+ +R popliteal +Patent +Normal phasicity; + + + +spontaneous; normal + + + +augmentation; compressible + + ---+ +-- ----+ +R gastrocnemius +Patent +Compressible + + ---+ +-- ----+ +R PTV +Patent +Compressible + + ---+ +-- ----+ +R peroneal +Patent +Compressible + + ---+ +-- ----+ +R soleal +Difficult study+ + + ---+ +-- ----+ +R GSV +Patent +Compressible + + ---+ +-- ----+ Prepared and electronically signed by Gregory Main MD 03/14/2020 13:37 Final Dictated: 03/14/2020 1:37 pm Dictating Physician: GREGORY MAIN Signed Date and Time: 03/14/2020 1:37 pm Signed by: GREGORY MAIN Cardiovascular ACCESSION EXAM DATE/TIME PROCEDURE [id number] 03/14/2020 13:03 EST VL Venous Duplex US Lower Ext Right Cardiovascular CPT code 15046 Reason For Exam (VL Venous Duplex US Lower Ext Right) Right leg pain from repetitive trauma. Evaluate for deep vein thrombosis. Report [facility] ----- Right Lower Extremity Venous Duplex Report Patient Abimael Dave : 1965 Study 03/14/2020 Name: Evi (54yrs) Date: Age: 54 Account: [id number] Gender: M Loc: 3EGR BP: Ordering Physician: Kait Howell Patient Services Manager: Padmini Mcnair RDMS, RVT Interpreting Physician: Gregory Main MD ----- Location: [facility] Emergency Dept at [place] ----- Indications: Nancytent states right calf pain and swelling for weeks, unsure of exact time frame.. ----- Conclusions 1. There is no evidence of acute deep or superficial venous thrombosis noted in the right lower extremity. 2. The left common femoral vein fully compresses and demonstrates normal venous flow. ----- History: History of right leg trauma and right back surgery. Risk factors: No risk factors for vascular disease. ----- Study data: Right lower extremity venous duplex evaluation. Right lateral evaluation with grayscale 2D imaging, color Doppler imaging, and spectral Doppler analysis. Procedure: A vascular evaluation was performed with the patient in the supine position. Images were obtained using a [place] i700 [employer] vascular ultrasound machine. ----- Venous flow and imaging: + ---+ +-- ----+ +Location +Overall +Properties + + ---+ +-- ----+ +R CFV +Patent +Normal phasicity; + + + +spontaneous; normal + + + +augmentation; compressible + + ---+ +-- ----+ Cardiovascular Report +R saphenofemoral +Patent +Compressible + +junction + + + + ---+ +-- ----+ +R profunda femoral +Patent +Normal phasicity; + + + +spontaneous; normal + + + +augmentation + + ---+ +-- ----+ +R FV - prox. +Patent +Compressible + + ---+ +-- ----+ +R FV - mid +Patent +Normal phasicity; + + + +spontaneous; normal + + + +augmentation; compressible + + ---+ +-- ----+ +R FV - distal +Patent +Compressible + + ---+ +-- ----+ +R popliteal +Patent +Normal phasicity; + + + +spontaneous; normal + + + +augmentation; compressible + + ---+ +-- ----+ +R gastrocnemius +Patent +Compressible + + ---+ +-- ----+ +R PTV +Patent +Compressible + + ---+ +-- ----+ +R peroneal +Patent +Compressible + + ---+ +-- ----+ +R soleal +Difficult study+ + + ---+ +-- ----+ +R GSV +Patent +Compressible + + ---+ +-- ----+ Prepared and electronically signed by Gregory Main MD 03/14/2020 13:37 Final Dictated: 03/14/2020 1:37 pm Dictating Physician: GREGORY MAIN Signed Date and Time: 03/14/2020 1:37 pm Signed by: GREGORY MAIN [facility] XR FOOT RIGHT (MIN 3 VIEWS)o n 03-14-2020 Patient Name: ABIMAEL DAVE Diagnostic Radiology ACCESSION EXAM DATE/TIME PROCEDURE ORDERING PROVIDER [id number] 03/14/2020 12:38 EST CR Foot Complete 3+ MD HOWELL GREGORY M Views Right CPT code 26742 Reason For Exam (CR Foot Complete 3+ Views Right) Right foot pain Report Right foot 03/14/2020. Clinical Information: Pain. Findings: 3 views of the right foot reveal of the bones to be well mineralized. There is a nondisplaced oblique fracture at the medial aspect of the base of the fifth proximal phalanx. The fracture line extends into the articular surface. No other bony abnormalities are identified. No radiopaque foreign bodies or subcutaneous emphysema are identified. Report Dictated on --- Final --- Dictated: 03/14/2020 12:44 pm Dictating Physician: MD WRIGHT RISA Signed Date and Time: 03/14/2020 12:45 pm Signed by: MD WRIGHT RISA Transcribed Date and Time: 03/14/2020 12:44 [facility] Incoming Radiology Results From [facility] - 03/14/2020 12:46 PM EST Patient Name: ABIMAEL DAVE Diagnostic Radiology ACCESSION EXAM DATE/TIME PROCEDURE ORDERING PROVIDER [id number] 03/14/2020 12:38 EST CR Foot Complete 3+ MD HOWELL GREGORY M Views Right CPT code 28347 Reason For Exam (CR Foot Complete 3+ Views Right) Right foot pain Report Right foot 03/14/2020. Clinical Information: Pain. Findings: 3 views of the right foot reveal of the bones to be well mineralized. There is a nondisplaced oblique fracture at the medial aspect of the base of the fifth proximal phalanx. The fracture line extends into the articular surface. No other bony abnormalities are identified. No radiopaque foreign bodies or subcutaneous emphysema are identified. Report Dictated on --- Final --- Dictated: 03/14/2020 12:44 pm Dictating Physician: MD WRIGHT RISA Signed Date and Time: 03/14/2020 12:45 pm Signed by: MD WRIGHT RISA Transcribed Date and Time: 03/14/2020 12:44 [place] XR TIBIA FIBULA RIGHT (2 VIE WS)on 03-14-2020 Patient Name: ABIMAEL DAVE Diagnostic Radiology ACCESSION EXAM DATE/TIME PROCEDURE ORDERING PROVIDER [id number] 03/14/2020 12:38 EST CR Tibia/Fibula 2 Views MD HOWELL GREGORY M Right CPT code 42133 Reason For Exam (CR Tibia/Fibula 2 Views Right) Right leg pain Report Right tibia and fibula: 03/14/2020 Clinical information: Right leg pain. Findings: 2 views of the right tibia and fibula from the knee to the ankle reveal the bones to be well mineralized. There is no evidence of fracture or dislocation. No periosteal reaction, lytic or sclerotic foci are identified. Impression: No acute process. Report Dictated on --- Final --- Dictated: 03/14/2020 12:41 pm Dictating Physician: MD WRIGHT RISA Signed Date and Time: 03/14/2020 12:41 pm Signed by: MD WRIGHT RISA Transcribed Date and Time: 03/14/2020 12:41 [facility] [place] [place] Incoming Radiology Results From [facility] - 03/14/2020 12:42 PM EST Patient Name: ABIMAEL DAVE Diagnostic Radiology ACCESSION EXAM DATE/TIME PROCEDURE ORDERING PROVIDER [id number] 03/14/2020 12:38 EST CR Tibia/Fibula 2 Views MD HOWELL GREGORY M Right CPT code 41747 Reason For Exam (CR Tibia/Fibula 2 Views Right) Right leg pain Report Right tibia and fibula: 03/14/2020 Clinical information: Right leg pain. Findings: 2 views of the right tibia and fibula from the knee to the ankle reveal the bones to be well mineralized. There is no evidence of fracture or dislocation. No periosteal reaction, lytic or sclerotic foci are identified. Impression: No acute process. Report Dictated on --- Final --- Dictated: 03/14/2020 12:41 pm Dictating Physician: MD WRIGHT RISA Signed Date and Time: 03/14/2020 12:41 pm Signed by: MD WRIGHT RISA Transcribed Date and Time: 03/14/2020 12:41 [place], [place] CBC Auto Differentialon 11-2 Absolute Baso # 0.1 10*3/uL 0 - 0.2 10*3/uL [place] Absolute Neut # 1.6 10*3/uL Low 1.8 - 7 10*3/uL [place] Basophils/100 WBC (Bld) 1.6 % 0 - 2 % [place] Eosinophils (Bld) [#/Vol] 0.1 10*3/uL 0 - 0.5 10*3/uL [place] Eosinophils/100 WBC (Bld) 1.8 % 1 - 6 % [place] Erythrocyte distribution width (RBC) [Ratio] 13.2 % 11.5 - 14.5 % [place] Granulocytes/100 WBC (Bld) 49.8 % 40 - 80 % [place] Hematocrit (Bld) [Volume fraction] 46.3 % 40 - 52 % [place] Hemoglobin (Bld) [Mass/Vol] 15.8 g/dL 13 - 18 g/dL [place] Interpretation and review of laboratory results Abnormal [place] Lymphocytes (Bld) [#/Vol] 0.9 10*3/uL Low 1 - 4.3 10*3/uL [place] Lymphocytes/100 WBC (Bld) 28.1 % 20 - 40 % [place] MCH (RBC) [Entitic mass] 32.9 pg 26 - 34 pg [place] MCHC (RBC) [Mass/Vol] 34.1 % 32 - 36 % [place] MCV (RBC) [Entitic vol] 96.4 fL 80 - 98 fL [place] Monocytes (Bld) [#/Vol] 0.6 10*3/uL 0 - 0.8 10*3/uL [place] Monocytes/100 WBC (Bld) 18.7 % High 2 - 10 % [place] Platelet mean volume (Bld) [Entitic vol] 7.3 fL Low 7.4 - 10.4 fL [place], [place] Platelets (Bld) [#/Vol] 230 10*3/uL 140 - 440 10*3/uL [place] RBC (Bld) [#/Vol] 4.81 10*6/uL 4.4 - 5.9 10*6/uL [place] WBC (Bld) [#/Vol] 3.3 10*3/uL Low 3.6 - 10.7 10*3/uL [place] Test [facility] by [facility], [address] [place], [place] [address] [place], [place] CKo 02-18-2020 CK [Catalytic activity/Vol] 617 U/L High 30-170 [facility] Comment on above: Performed By: #### C K3, CMP3M ####[employer] [id number] [place] [address] Total CK 617 U/L High 30 - 170 U/L [place], [place] Comp Panel with Mg Reflexon 02-18-2020 ALT [Catalytic activity/Vol] 92 U/L High 0-49 [facility] Comment on above: Result Comment: The ALT test is performed by an updated assay method. Please note that the reference intervals have been changed and are now sex specific. Performed By: #### C K3, CMP3M ####[employer] [id number] [place] [address] Calcium [Mass/Vol] 8.6 mg/dL Normal 8.4-10.4 [facility] Comment on above: Performed By: #### Bianka Wasserman CMP3M ####[facility] [place] [address] Glucose [Mass/Vol] 113 mg/dL High 70-100 [facility] Comment on above: Performed By: #### Bianka Wasserman CMP3M ####[place] [address] [place] [address] ALP [Catalytic activity/Vol] 88 U/L Normal 38-126 [facility] Comment on above: Performed By: #### Bianka Wasserman CMP3M ####[place] [address] [place] [address] Anion gap [Moles/Vol] 6 Normal [facility] Comment on above: Performed By: #### Bianka Wasserman CMP3M ####[place] [address] [place] [address] AST [Catalytic activity/Vol] 82 U/L High 15-46 [facility] Comment on above: Performed By: #### Bianka Wasserman CMP3M ####[place] [address] [place] [address] Bilirubin [Mass/Vol] 0.5 mg/dL Normal 0.2-1.3 [facility] Comment on above: Performed By: #### Bianka Wasserman CMP3M ####[place] [address] [place] [address] CO2 [Moles/Vol] 26 mmol/L Normal 22-30 [facility] Comment on above: Performed By: #### Bianka Wasserman CMP3M ####[place] [address] [place] [address] Creatinine [Mass/Vol] 0.91 mg/dL Normal 0.52-1.25 [facility] Comment on above: Performed By: #### Bianka Wasserman CMP3M ####[facility] [place] [address] GFR/1.73 sq M predicted among blacks MDRD (S/P/Bld) [Vol rate/Area] mL/min/{1.73_m2} Normal >60 [facility] Comment on above: Performed By: #### Bianka Wasserman CMP3M ####[place] [address] [place] [address] GFR/1.73 sq M predicted among non-blacks MDRD (S/P/Bld) [Vol rate/Area] mL/min/{1.73_m2} Normal >60 [facility] Comment on above: Result Comment: KDIG O guidelines provide the following GFR categories: Stage GFR(ml/min/1.73 m2) Terms G1 >=90 Normal or high G2 60-89 Mildly decreased* G3a 45-59 Mildly to moderately decreased G3b 30-44 Moderately to severely decreased G4 15-29 Severely decreased G5 <15 Kidney failure *Relative to young adult level. In the absence of evidence of kidney damage, neither GFR category G1 nor G2 fulfill the criteria for CKD. The CKD-EPI equation is validated in individuals 18 years of age and older. Currently the best equation for estimating glomerular filtration rate (GFR) from serum creatinine in children is the Bedside Torres equation. It is less accurate in patients with extremes of muscle mass, restriction of dietary protein, ingestion of creatine, extra-renal metabolism of creatinine, or treatment with medications that affect renal tubular creatinine secretion. Performed By: #### Bianka K3 CMP3M ####[place] [address] [place] [address] Protein [Mass/Vol] 6.9 g/dL Normal 6.3-8.2 [facility] Comment on above: Performed By: #### Bianka K3, CMP3M ####[place] [address] [place] [address] Urea nitrogen [Mass/Vol] 10 mg/dL Normal 7-20 [facility] Comment on above: Performed By: #### Bianka K3, CMP3M ####[place] [address] [place] [address] Chloride [Moles/Vol] 106 mmol/L Normal 98-107 [facility] Comment on above: Performed By: #### Bianka K3, CMP3M ####[place] [address] [place] [address] Potassium [Moles/Vol] 3.9 mmol/L Normal 3.5-5.1 [facility] Comment on above: Performed By: #### Bianka K3, CMP3M ####[address] [place] [address] Sodium [Moles/Vol] 138 mmol/L Normal 135-145 [facility] Comment on above: Performed By: #### Bianka Wasserman CMP3M ####[facility] [place] [address] Albumin [Mass/Vol] 4.2 g/dL Normal 3.5-5.0 [facility] Comment on above: Performed By: #### Bianka Wasserman, CMP3M ####[facility] [facility] [place] [address] Comprehensive Metabolic Pane l w/ Reflex to MGon 02-18-2020 Albumin [Mass/Vol] 4.2 g/dL 3.5 - 5 g/dL [place] ALP [Catalytic activity/Vol] 88 U/L 38 - 126 U/L [place] ALT [Catalytic activity/Vol] 92 U/L High 0 - 49 U/L [place] Comment on above: The ALT test is perf ormed by an updated assay method. Please note that the reference intervals have been changed and are now sex specific. Anion gap [Moles/Vol] 6 mmol/L [place] AST [Catalytic activity/Vol] 82 U/L High 15 - 46 U/L [place] Bilirubin Ql (U) 0.5 mg/dL 0.2 - 1.3 mg/dL [place] Calcium [Mass/Vol] 8.6 mg/dL 8.4 - 10. 4 mg/dL [place] Chloride [Moles/Vol] 106 mmol/L 98 - 10 7 mmol/L [place] CO2 [Moles/Vol] 26 mmol/L 22 - 30 mmol/L [place] Creatinine [Mass/Vol] 0.91 mg/dL 0.52 - 1.25 mg/dL [place] EGFR IF NonAfrican Niuean >90.0 >60 mL/min [place] Comment on above: KDIGO guidelines pro vide the following GFR categories: Stage GFR(ml/min/1.73 m2) Terms G1 >=90 Normal or high G2 60-89 Mildly decreased* G3a 45-59 Mildly to moderately decreased G3b 30-44 Moderately to severely decreased G4 15-29 Severely decreased G5 <15 Kidney failure *Relative to young adult level. In the absence of evidence of kidney damage, neither GFR category G1 nor G2 fulfill the criteria for CKD. The CKD-EPI equation is validated in individuals 18 years of age and older. Currently the best equation for estimating glomerular filtration rate (GFR) from serum creatinine in children is the Bedside Torres equation. It is less accurate in patients with extremes of muscle mass, restriction of dietary protein, ingestion of creatine, extra-renal metabolism of creatinine, or treatment with medications that affect renal tubular creatinine secretion. GFR/1.73 sq M predicted among blacks MDRD (S/P/Bld) [Vol rate/Area] mL/min/{1.73_m2} >60 mL/min [place] Glucose [Mass/Vol] 113 mg/dL High 70 - 100 mg/dL [place] Potassium [Moles/Vol] 3.9 mmol/L 3.5 - 5.1 mmol/L [place] Protein [Mass/Vol] 6.9 g/dL 6.3 - 8.2 g/dL [place] Sodium [Moles/Vol] 138 mmol/L 135 - 145 mmol/L [place] Urea nitrogen [Mass/Vol] 10 mg/dL 7 - 20 mg/dL [place] Hemogram w/ Autodiffon 02-17 Abs Baso Cnt 0.1 10*3/uL Normal 0.0-0.2 [facility] Comment on above: Performed By: #### H EMDF ####[facility] [facility] [address] Abs Neutrophile Cnt 1.6 10*3/uL Low 1.8-7.0 [facility] Comment on above: Performed By: #### H EMDF ####[facility] [facility] [address] Basophils/100 WBC (Bld) 1.6 % Normal 0.0-2.0 [facility] Comment on above: Performed By: #### H EMDF ####[facility] [address] [place] [address] Eosinophils (Bld) [#/Vol] 0.1 10*3/uL Normal 0.0-0.5 [facility] Comment on above: Performed By: #### H EMDF ####[place] [address] [place] [address] Eosinophils/100 WBC (Bld) 1.8 % Normal 1.0-6.0 [facility] Comment on above: Performed By: #### H EMDF ####[place] [address] [place] [address] Erythrocyte distribution width (RBC) [Ratio] 13.2 % Normal 11.5-14.5 [facility] Comment on above: Performed By: #### H EMDF ####[place] [address] [place] [address] Granulocytes/100 WBC (Bld) 49.8 % Normal 40.0-80.0 [facility] Comment on above: Performed By: #### H EMDF ####[place] [address] [place] [address] Hematocrit (Bld) [Volume fraction] 46.3 % Normal 40.0-52.0 [facility] Comment on above: Performed By: #### H EMDF ####[place] [address] [place] [address] Hemoglobin (Bld) [Mass/Vol] 15.8 g/dL Normal 13.0-18.0 [facility] Comment on above: Performed By: #### H EMDF ####[place] [address] [place] [address] Lymphocytes (Bld) [#/Vol] 0.9 10*3/uL Low 1.0-4.3 [facility] Comment on above: Performed By: #### H EMDF ####[place] [address] [place] [address] Lymphocytes/100 WBC (Bld) 28.1 % Normal 20.0-40.0 [facility] Comment on above: Performed By: #### H EMDF ####[place] [address] [place] [address] MCH (RBC) [Entitic mass] 32.9 pg Normal 26.0-34.0 [facility] Comment on above: Performed By: #### H EMDF ####[facility] [place] [address] MCHC (RBC) [Mass/Vol] 34.1 % Normal 32.0-36.0 [facility] Comment on above: Performed By: #### H EMDF ####[facility] [place] [address] MCV (RBC) [Entitic vol] 96.4 fL Normal 80.0-98.0 [facility] Comment on above: Performed By: #### H EMDF ####[place] [address] [place] [address] Monocytes (Bld) [#/Vol] 0.6 10*3/uL Normal 0.0-0.8 [facility] Comment on above: Performed By: #### H EMDF ####[place] [address] [place] [address] Monocytes/100 WBC (Bld) 18.7 % High 2.0-10.0 [facility] Comment on above: Performed By: #### H EMDF ####[facility] [place] [address] Platelet mean volume (Bld) [Entitic vol] 7.3 fL Low 7.4-10.4 [facility] Comment on above: Performed By: #### H EMDF ####[facility] [place] [address] Platelets (Bld) [#/Vol] 230 10*3/uL Normal 140-440 [facility] Comment on above: Performed By: #### H EMDF ####[place] [address] [place] [address] RBC (Bld) [#/Vol] 4.81 10*6/uL Normal 4.40-5.90 [facility] Comment on above: Performed By: #### H EMDF ####[place] [address] [place] [address] WBC (Bld) [#/Vol] 3.3 10*3/uL Low 3.6-10.7 [facility] Comment on above: Performed By: #### H EMDF ####[facility] [id number] [place] [address] Otheron 02-18-2020 Interpretation and review of laboratory results Abnormal [place] Test Performed by [facility], [address] [place], [place] [address] [place] CKon 02-17-2020 CK [Catalytic activity/Vol] 1090 U/L High 30-170 [facility] Comment on above: Performed By: #### C K3 ####[facility] [place] [address] Interpretation and review of laboratory results Abnormal [place] Total CK 1090 U/L High 30 - 170 U/L [place] Test Performed by [facility] [employer] [address] [place], [place] [address] [place] [address] Acute Hepatitis Panelon 01-24 Hep C Antibody DETECTED Abnormal Not-Detected [facility] Comment on above: Result Comment: Mery ents with DETECTED Hepatitis C Ab results should have a new specimen submitted for supplemental testing with a Hepatitis C Quantitative RNA assay (viral load), if clinically indicated. Performed By: #### H EPAN ####[facility] [id number] [place], [place] Hep B Surface Ag NOT DETECTED Normal Not-Detected [facility] Comment on above: Performed By: #### H EPAN ####[id number] [place], [place] Hep B Core IgM NOT DETECTED Normal Not-Detected [facility] Comment on above: Performed By: #### H EPAN ####[id number] [place], [place] Hep A Virus Ab,IgM NOT DETECTED Normal Not-Detected [facility] Comment on above: Performed By: #### H EPAN ####[facility] [id number] [place], [place] Add On Lab Teston 02-16-2020 Sodium [Moles/Vol] Accepted [place] Comment on above: Specimen available & acceptable for analysis. Test Performed by [facility] [address] [place], [place] [address] [facility] [place], [place] Add on test from HISon 02-15 Add on test from HIS Accepted Normal [facility] Comment on above: Result Comment: Spec imen available & acceptable for analysis. Performed By: #### A DDON ####[place] [address] [place] [address] Basic Metabolic Panelon 01-24 Calcium [Mass/Vol] 8.0 mg/dL Low 8.4-10.4 [facility] Comment on above: Performed By: #### B MP3, CK3, LFT3 ####[facility] [place] [address] Glucose [Mass/Vol] 105 mg/dL High 70-100 [facility] Comment on above: Performed By: #### B MP3, CK3, LFT3 ####[place] [address] [place] [address] Urea nitrogen [Mass/Vol] 12 mg/dL Normal 7-20 [facility] Comment on above: Performed By: #### B MP3, CK3, LFT3 ####[facility] [id number] [place] [address] Anion gap [Moles/Vol] 5 Normal [facility] Comment on above: Performed By: #### B MP3, CK3, LFT3 ####[place] [address] [place] [address] CO2 [Moles/Vol] 29 mmol/L Normal 22-30 [facility] Comment on above: Performed By: #### B MP3, CK3, LFT3 ####[facility] [place] [address] Creatinine [Mass/Vol] 0.91 mg/dL Normal 0.52-1.25 [facility] Comment on above: Performed By: #### B MP3, CK3, LFT3 ####[facility] [place] [address] GFR/1.73 sq M predicted among blacks MDRD (S/P/Bld) [Vol rate/Area] mL/min/{1.73_m2} Normal >60 [facility] Comment on above: Performed By: #### B MP3, CK3, LFT3 ####[facility] [place] [address] GFR/1.73 sq M predicted among non-blacks MDRD (S/P/Bld) [Vol rate/Area] mL/min/{1.73_m2} Normal >60 [facility] Comment on above: Result Comment: KDIG O guidelines provide the following GFR categories: Stage GFR(ml/min/1.73 m2) Terms G1 >=90 Normal or high G2 60-89 Mildly decreased* G3a 45-59 Mildly to moderately decreased G3b 30-44 Moderately to severely decreased G4 15-29 Severely decreased G5 <15 Kidney failure *Relative to young adult level. In the absence of evidence of kidney damage, neither GFR category G1 nor G2 fulfill the criteria for CKD. The CKD-EPI equation is validated in individuals 18 years of age and older. Currently the best equation for estimating glomerular filtration rate (GFR) from serum creatinine in children is the Bedside Torres equation. It is less accurate in patients with extremes of muscle mass, restriction of dietary protein, ingestion of creatine, extra-renal metabolism of creatinine, or treatment with medications that affect renal tubular creatinine secretion. Performed By: #### B MP3, CK3, LFT3 ####[facility] [place] [address] Potassium [Moles/Vol] 3.4 mmol/L Low 3.5-5.1 [facility] Comment on above: Performed By: #### B MP3, CK3, LFT3 ####[facility] [place] [address] Chloride [Moles/Vol] 100 mmol/L Normal 98-107 [facility] Comment on above: Performed By: #### B MP3, CK3, LFT3 ####[facility] [place] [address] Sodium [Moles/Vol] 134 mmol/L Low 135-145 [facility] Comment on above: Performed By: #### B MP3, CK3, LFT3 ####[facility] [place] [address] Anion gap [Moles/Vol] 5 mmol/L [place] Calcium [Mass/Vol] 8.0 mg/dL Low 8.4 - 10. 4 mg/dL [place] Chloride [Moles/Vol] 100 mmol/L 98 - 10 7 mmol/L [place] CO2 [Moles/Vol] 29 mmol/L 22 - 30 mmol/L [place] Creatinine [Mass/Vol] 0.91 mg/dL 0.52 - 1.25 mg/dL [place] EGFR IF NonAfrican Niuean >90.0 >60 mL/min [place] Comment on above: KDIGO guidelines pro vide the following GFR categories: Stage GFR(ml/min/1.73 m2) Terms G1 >=90 Normal or high G2 60-89 Mildly decreased* G3a 45-59 Mildly to moderately decreased G3b 30-44 Moderately to severely decreased G4 15-29 Severely decreased G5 <15 Kidney failure *Relative to young adult level. In the absence of evidence of kidney damage, neither GFR category G1 nor G2 fulfill the criteria for CKD. The CKD-EPI equation is validated in individuals 18 years of age and older. Currently the best equation for estimating glomerular filtration rate (GFR) from serum creatinine in children is the Bedside Torres equation. It is less accurate in patients with extremes of muscle mass, restriction of dietary protein, ingestion of creatine, extra-renal metabolism of creatinine, or treatment with medications that affect renal tubular creatinine secretion. GFR/1.73 sq M predicted among blacks MDRD (S/P/Bld) [Vol rate/Area] mL/min/{1.73_m2} >60 mL/min [place] Glucose [Mass/Vol] 105 mg/dL High 70 - 100 mg/dL [place] Potassium [Moles/Vol] 3.4 mmol/L Low 3.5 - 5.1 mmol/L [place] Sodium [Moles/Vol] 134 mmol/L Low 135 - 145 mmol/L [place] Urea nitrogen [Mass/Vol] 12 mg/dL 7 - 20 mg/dL [place] CKon 02-16-2020 CK [Catalytic activity/Vol] 3466 U/L High 30-170 [facility] Comment on above: Performed By: #### B MP3, CK3, LFT3 ####[facility] [address] [place] [facility] [place] [address] Total CK 3466 U/L High 30 - 170 U/L [facility], [place] CR Spine Lumbosacral 2 or 3 Viewson 02-16-2020 CR Spine Lumbosacral 2 or 3 Views Patient Name: ABIMAEL DAVE Diagnostic Radiology Exam Date/Time 02/16/2020 13:45:07 EST Exam CR Spine Lumbosacral 2 or 3 Views Ordering Physician KENIA VALLADARES Accession Number [id number] CPT4 Codes 38098 () Reason For Exam back pain Report LIMITED LUMBAR SPINE History: Low back pain Comparison: 02/23/2005 Findings: Frontal, lateral, and spot lateral views show partial laminectomy with posterior surgical fusion of L4, L5, and S1 and corresponding surgical hardware and bone graft as also noted on the CT of 03/15/2009. There is severe, approximately 1.7 cm anterolisthesis of L5 on S1 with narrowed/obliterated L5-S1 disc space. There is multilevel hypertrophic/sclerotic facet joint arthropathy at L4, L5 and S1. There remaining lumbar disc spaces and vertebral bodies are otherwise unremarkable. IMPRESSION: Spondylosis and postsurgical spine changes as described. Anterolisthesis of L5. 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 : 1965 Requested By: ROCK BARILLAS Order Number: [id number] Reading MD: Nohemi Jefferson Measurements Intervals [place] Rate: 89 P: 46 MS: 140 QRS: 39 QRSD: 114 T: 24 QT: 396 QTc: 482 Interpretive Statements SINUS RHYTHM NONSPECIFIC INTRAVENTRICULAR CONDUCTION DELAY Electronically Signed On 02-16-2020 9:22:42 EST by Nohemi [facility] WILLA [facility] Test Date: 2020-02-15 Pat Name: Abimael Dave Department: Room: 246 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 Please note that the reference intervals have been changed and are now sex specific. Performed By: #### B MP3, CK3, LFT3 ####[facility] [address] [place] [address] ALP [Catalytic activity/Vol] 88 U/L Normal 38-126 [facility] Comment on above: Performed By: #### B MP3, CK3, LFT3 ####[facility]resp[address] [place] [address] AST [Catalytic activity/Vol] 127 U/L High 15-46 [facility] Comment on above: Performed By: #### B MP3, CK3, LFT3 ####[facility] Center[facility] [place] [address] Bilirubin [Mass/Vol] 1.5 mg/dL High 0.2-1.3 [facility] Comment on above: Performed By: #### B MP3, CK3, LFT3 ####[facility] [id number] [place] [address] Bilirubin.direct [Mass/Vol] 0.0 mg/dL Normal 0.0-0.3 [facility] Comment on above: Performed By: #### B MP3, CK3, LFT3 ####[facility] [facility] [place] [address] Protein [Mass/Vol] 6.7 g/dL Normal 6.3-8.2 [facility] Comment on above: Performed By: #### B MP3, CK3, LFT3 ####[facility] [facility]ici[facility] [place] [address] Albumin [Mass/Vol] 4.0 g/dL Normal 3.5-5.0 [facility] Comment on above: Performed By: #### B MP3, CK3, LFT3 ####[facility] [place] [address] Hepatic Function Panelon Albumin [Mass/Vol] 4.0 g/dL 3.5 - 5 g/dL [place] ALP [Catalytic activity/Vol] 88 U/L 38 - 126 U/L [place] ALT [Catalytic activity/Vol] 100 U/L High 0 - 49 U/L [place] Comment on above: The ALT test is perf ormed by an updated assay method. Please note that the reference intervals have been changed and are now sex specific. AST [Catalytic activity/Vol] 127 U/L High 15 - 46 U/L [place] Bilirubin Ql (U) 1.5 mg/dL High 0.2 - 1.3 mg/dL [place] Bilirubin.direct [Mass/Vol] 0.0 mg/dL 0 - 0.3 mg/dL [place] Interpretation and review of laboratory results Abnormal [place] Protein [Mass/Vol] 6.7 g/dL 6.3 - 8.2 g/dL [place] Test Performed by [facility], [address] [place], [place] [address] [place] Hepatitis Panel, Acuteon HAV IgM IA Qn (S) NOT DETECTED Not-Detect ed NA [place] Hep B Core Ab, IgM NOT DETECTED Not-Detec mireille NA [place] Hepatitis B Surface Ag NOT DETECTED Not-Detected NA [place] Hepatitis C Ab DETECTED Abnormal Not-Detected [facility] Comment on above: Patients with DETECT ED Hepatitis C Ab results should have a new specimen submitted for supplemental testing with a Hepatitis C Quantitative RNA assay (viral load), if clinically indicated. Interpretation and review of laboratory results Abnormal [facility] [place] Test Performed by [employer] [facility], [address] [place] [address] [facility] WILLA Otheron 02-16-2020 Interpretation and review of laboratory results Abnormal [facility] [employer] WILLA Test Performed by [employer] [facility], [address] [place], [place], [place] [address] [facility] WILLA XR LUMBAR SPINE (2-3 VIEWS)o n 02-16-2020 Patient Name: ABIMAEL DAVE ---Diagnostic Radiology--- Exam Date/Time 02/16/2020 13:45:07 EST Exam CR Spine Lumbosacral 2 or 3 Views Ordering Physician KENIA VALLADARES Accession Number [id number] CPT4 Codes 57522 () Reason For Exam back pain Report LIMITED LUMBAR SPINE History: Low back pain Comparison: 02/23/2005 Findings: Frontal, lateral, and spot lateral views show partial laminectomy with posterior surgical fusion of L4, L5, and S1 and corresponding surgical hardware and bone graft as also noted on the CT of 03/15/2009. There is severe, approximately 1.7 cm anterolisthesis of L5 on S1 with narrowed/obliterated L5-S1 disc space. There is multilevel hypertrophic/sclerotic facet joint arthropathy at L4, L5 and S1. There remaining lumbar disc spaces and vertebral bodies are otherwise unremarkable. IMPRESSION: Spondylosis and postsurgical spine changes as described. Anterolisthesis of L5. Report Dictated on --- Final --- Dictating Physician: MD LOCKETT AHMAD Signed Date and Time: 02/16/2020 3:11 pm Signed by: MD LOCKETT AHMAD Transcribed Date and Time: 02/16/2020 3:12 [place], [place] Regino, [facility] Incoming Radiology Results From [facility] - 02/16/2020 3:12 PM EST Patient Name: ABIMAEL DAVE ---Diagnostic Radiology--- Exam Date/Time 02/16/2020 13:45:07 EST Exam CR Spine Lumbosacral 2 or 3 Views Ordering Physician KENIA VALLADARES Accession Number [id number] CPT4 Codes 84386 () Reason For Exam back pain Report LIMITED LUMBAR SPINE History: Low back pain Comparison: 02/23/2005 Findings: Frontal, lateral, and spot lateral views show partial laminectomy with posterior surgical fusion of L4, L5, and S1 and corresponding surgical hardware and bone graft as also noted on the CT of 03/15/2009. There is severe, approximately 1.7 cm anterolisthesis of L5 on S1 with narrowed/obliterated L5-S1 disc space. There is multilevel hypertrophic/sclerotic facet joint arthropathy at L4, L5 and S1. There remaining lumbar disc spaces and vertebral bodies are otherwise unremarkable. IMPRESSION: Spondylosis and postsurgical spine changes as described. Anterolisthesis of L5. Report Dictated on --- Final --- Dictating Physician: MD LOCKETT AHMAD Signed Date and Time: 02/16/2020 3:11 pm Signed by: MD LOCKETT AHMAD Transcribed Date and Time: 02/16/2020 3:12 [place] ACETAMINOPHEN LEVELon 2019 Acetaminophen [Mass/Vol] <10.0 10 - 30 ug/mL [place] Acetaminophenon 02-15-2020 Acetaminophen [Mass/Vol] < 10.0 Normal 10.0-30.0 [facility] Comment on above: Performed By: #### S AL33, BMP3, ACET4, CK3, ETOH4, TROPN #### [facility] [address] [place] [address] Basic Metabolic Panelon 01-24 Calcium [Mass/Vol] 8.7 mg/dL Normal 8.4-10.4 [facility] Comment on above: Performed By: #### S AL33, BMP3, ACET4, CK3, ETOH4, TROPN #### [facility] [address] [address] Glucose [Mass/Vol] 105 mg/dL High 70-100 [facility] Comment on above: Performed By: #### S AL33, BMP3, ACET4, CK3, ETOH4, TROPN #### [facility] [address] [place] [address] Anion gap [Moles/Vol] 6 Normal [facility] Comment on above: Performed By: #### S AL33, BMP3, ACET4, CK3, ETOH4, TROPN #### [facility] [address] [place] [address] CO2 [Moles/Vol] 31 mmol/L High 22-30 [facility] Comment on above: Performed By: #### S AL33, BMP3, ACET4, CK3, ETOH4, TROPN #### [facility] [address] [place] [address] Creatinine [Mass/Vol] 0.99 mg/dL Normal 0.52-1.25 [facility] Comment on above: Performed By: #### S AL33, BMP3, ACET4, CK3, ETOH4, TROPN #### [facility] [address] [place] [address] GFR/1.73 sq M predicted among blacks MDRD (S/P/Bld) [Vol rate/Area] mL/min/{1.73_m2} Normal >60 [facility] Comment on above: Performed By: #### S AL33, BMP3, ACET4, CK3, ETOH4, TROPN #### [facility] [address] [place] [address] GFR/1.73 sq M predicted among non-blacks MDRD (S/P/Bld) [Vol rate/Area] 85.8 mL/min/{1.73_m2} Normal >60 [facility] Comment on above: Result Comment: KDIG O guidelines provide the following GFR categories: Stage GFR(ml/min/1.73 m2) Terms G1 >=90 Normal or high G2 60-89 Mildly decreased* G3a 45-59 Mildly to moderately decreased G3b 30-44 Moderately to severely decreased G4 15-29 Severely decreased G5 <15 Kidney failure *Relative to young adult level. In the absence of evidence of kidney damage, neither GFR category G1 nor G2 fulfill the criteria for CKD. The CKD-EPI equation is validated in individuals 18 years of age and older. Currently the best equation for estimating glomerular filtration rate (GFR) from serum creatinine in children is the Bedside Torres equation. It is less accurate in patients with extremes of muscle mass, restriction of dietary protein, ingestion of creatine, extra-renal metabolism of creatinine, or treatment with medications that affect renal tubular creatinine secretion. Performed By: #### S AL33, BMP3, ACET4, CK3, ETOH4, TROPN #### [facility] [address] [place] [address] Urea nitrogen [Mass/Vol] 18 mg/dL Normal 7-20 [facility] Comment on above: Performed By: #### S AL33, BMP3, ACET4, CK3, ETOH4, TROPN #### [facility] [address] [place] [address] Chloride [Moles/Vol] 99 mmol/L Normal 98-107 [facility] Comment on above: Performed By: #### S AL33, BMP3, ACET4, CK3, ETOH4, TROPN #### [facility] [address] [place] [address] Potassium [Moles/Vol] 4.0 mmol/L Normal 3.5-5.1 [facility] Comment on above: Performed By: #### S AL33, BMP3, ACET4, CK3, ETOH4, TROPN #### [facility] [address] [place] [address] Sodium [Moles/Vol] 135 mmol/L Normal 135-145 [facility] Comment on above: Performed By: #### S AL33, BMP3, ACET4, CK3, ETOH4, TROPN #### [facility] [address] [place] [address] Anion gap [Moles/Vol] 6 mmol/L [place] Calcium [Mass/Vol] 8.7 mg/dL 8.4 - 10. 4 mg/dL [place] Chloride [Moles/Vol] 99 mmol/L 98 - 10 7 mmol/L [place] CO2 [Moles/Vol] 31 mmol/L High 22 - 30 mmol/L [place] Creatinine [Mass/Vol] 0.99 mg/dL 0.52 - 1.25 mg/dL [place] EGFR IF NonAfrican Niuean 85.8 mL/min >60 [place] Comment on above: KDIGO guidelines pro vide the following GFR categories: Stage GFR(ml/min/1.73 m2) Terms G1 >=90 Normal or high G2 60-89 Mildly decreased* G3a 45-59 Mildly to moderately decreased G3b 30-44 Moderately to severely decreased G4 15-29 Severely decreased G5 <15 Kidney failure *Relative to young adult level. In the absence of evidence of kidney damage, neither GFR category G1 nor G2 fulfill the criteria for CKD. The CKD-EPI equation is validated in individuals 18 years of age and older. Currently the best equation for estimating glomerular filtration rate (GFR) from serum creatinine in children is the Bedside Torres equation. It is less accurate in patients with extremes of muscle mass, restriction of dietary protein, ingestion of creatine, extra-renal metabolism of creatinine, or treatment with medications that affect renal tubular creatinine secretion. GFR/1.73 sq M predicted among blacks MDRD (S/P/Bld) [Vol rate/Area] mL/min/{1.73_m2} >60 mL/min [place] Glucose [Mass/Vol] 105 mg/dL High 70 - 100 mg/dL [place] Interpretation and review of laboratory results Abnormal [place] Potassium [Moles/Vol] 4.0 mmol/L 3.5 - 5.1 mmol/L [place] Sodium [Moles/Vol] 135 mmol/L 135 - 145 mmol/L [place] Urea nitrogen [Mass/Vol] 18 mg/dL 7 - 20 mg/dL [place] CKon 02-15-2020 CK [Catalytic activity/Vol] 2797 U/L High 30-170 [facility] Comment on above: Performed By: #### S AL33, BMP3, ACET4, CK3, ETOH4, TROPN #### [facility] [address] [place] [address] Interpretation and review of laboratory results Abnormal [place] Total CK 2797 U/L High 30 - 170 U/L [place], [place] Test Performed by [facility], [address] , [place], [place] [id number] [place] [address] CR Chest Portableon 02-15-20 20 CR Chest Portable Patient Name: ABIMAEL DAVE Diagnostic Radiology Exam Date/Time 02/15/2020 15:50:00 EST Exam CR Chest Portable Ordering Physician MD ERAN, [facility] Accession Number [id number] CPT4 Codes 06910 () Reason For Exam overdose Report PORTABLE CHEST: INDICATION: Overdose, chest pain COMPARISON: No previous studies are available for comparison. Obtained at 1545 hours. A single portable AP radiograph of the chest was obtained. The heart is normal in size. The mediastinal silhouette is normal. The lungs are clear. There are no effusions or infiltrates. There is no pleural thickening. The osseous structures are unremarkable. IMPRESSION: No acute process. Report Dictated on Final Dictating Physician: DO ALEJO ALFRED Signed Date and Time: 02/15/2020 4:22 pm Signed by: DO ALEJO ALFRED Transcribed Date and Time: 02/15/2020 4:23 Normal [facility] Complete Urinalysison 2019 Appearance (U) Clear Normal Clear [facility] Comment on above: Result Comment: . Performed By: #### C UA2, DRGA4 #### [facility] [address] [place] [address] Bilirubin,Urine Negative Normal Negative [facility] Comment on above: Result Comment: . Performed By: #### C UA2, DRGA4 #### [facility] [address] [place] [address] Color (U) LIGHT YELLOW Normal Lt. Yellow [facility] Comment on above: Result Comment: . Performed By: #### C UA2, DRGA4 #### [facility] [address] [place] [address] Glucose Ql (U) Normal Normal Normal (<70) [facility] Comment on above: Result Comment: . Performed By: #### C UA2, DRGA4 #### [facility] [address] [place] [address] Ketone,Urine Negative Normal Negative [facility] Comment on above: Result Comment: . Performed By: #### C UA2, DRGA4 #### [facility] [address] [place] [address] Leukocytes,Urine Negative Normal Negative [facility] Comment on above: Result Comment: . Performed By: #### C UA2, DRGA4 #### [facility] [address] [place] [address] Nitrites,Urine Negative Normal Negative [facility] Comment on above: Result Comment: . Performed By: #### C UA2, DRGA4 #### [facility] [address] [place] [address] Occult Blood,Urine Negative Normal Negative [facility] Comment on above: Result Comment: . Performed By: #### C UA2, DRGA4 #### [facility] [address] [place] [address] pH (U) 6.5 Normal 5.0-8.0 [facility] Comment on above: Result Comment: . Performed By: #### C UA2, DRGA4 #### [address] [place] [address] Protein (U) [Mass/Vol] Negative Normal Negative [facility] Comment on above: Result Comment: . Performed By: #### C UA2, DRGA4 #### [facility] [address] [place] [address] Specific [place],Urine 1.009 Normal 1.005 - 1.030 [facility] Comment on above: Result Comment: . Performed By: #### C UA2, DRGA4 #### [facility] [address] [place] [address] Urobilinogen,Urine Normal Normal Normal (0-1) [facility] Comment on above: Result Comment: . Performed By: #### C UA2, DRGA4 #### [facility] [address] [place] [address] Drugs of Abuseon 02-15-2020 Opiates, Ur Negative Normal [facility] Comment on above: Performed By: #### C UA2, DRGA4 ####[address] [place] [address] Phencyclidine (PCP), Ur Negative Normal [facility] Comment on above: Result Comment: The expected value for all of the drugs listed above is Negative. The following drugs or drug groups have been screened for by Immunoassay at the following thresholds: Amphetamine class (1000 ng/mL), Barbiturates (200 ng/mL), Benzodiazepines (200 ng/mL), Cocaine (300 ng/mL), Methadone (300 ng/mL), Opiates (300 ng/mL), Oxycodone (100 ng/mL), and PCP (25 ng/mL). NOTE: These results are for medical treatment only. Analysis performed using non-forensic procedures. POSITIVE results are NOT confirmed by a more specific alternative method unless requested. If confirmation is needed, request confirmation under separate order. Performed By: #### C UA2, DRGA4 ####[address] [place] [address] Cocaine, Ur Negative Normal [facility] Comment on above: Performed By: #### C UA2, DRGA4 ####[address] [place] [address] Methadone, Ur Negative Normal [facility] Comment on above: Performed By: #### C UA2, DRGA4 ####[address] [place] [address] Benzodiazepines, Ur Negative Normal [facility] Comment on above: Performed By: #### C UA2, DRGA4 ####[address] [place] [address] Amphetamines, Ur Positive Normal [facility] Comment on above: Performed By: #### C UA2, DRGA4 ####[address] [place] [address] Barbiturates, Ur Negative Normal [facility] Comment on above: Performed By: #### C UA2, DRGA4 ####[facility] [address] [place] [address] Oxycodone/Oxymorphin e,Ur Negative Normal [facility] Comment on above: Performed By: #### C UA2, DRGA4 ####[facility] [place] [address] Ethanolon 02-15-2020 Ethanol Lvl <0.010 0 - 0.01 g/dL [place], [place] Comment on above: NOTE: This result is for medical treatment only. Analysis performed using non-forensic procedures. Ethanol Serum/Plasmaon 02-14 Ethanol-Serum/Plasma < 0.010 Normal 0.000-0.010 [facility] Comment on above: Result Comment: NOTE : This result is for medical treatment only. Analysis performed using non-forensic procedures. Performed By: #### S AL33, BMP3, ACET4, CK3, ETOH4, TROPN #### [facility] [address] [place] [address] Otheron 02-15-2020 Test Performed by [facility], [address] Salicylateon 02-15-2020 Salicylate Lvl <1.0 0 - 20 mg/dL [place], [place] Test Performed by [facility], [address] Salicylateson 02-15-2020 Salicylates < 1.0 Normal 0.0-20.0 [facility] Comment on above: Performed By: #### S AL33, BMP3, ACET4, CK3, ETOH4, TROPN #### [facility] [address] [place] [address] Troponin Ion 02-15-2020 Troponin I.cardiac [Mass/Vol] ng/mL Normal 0.000-0.034 [facility] Comment on above: Result Comment: . Performed By: #### S AL33, BMP3, ACET4, CK3, ETOH4, TROPN #### [facility] [address] [place] [address] Troponin x1on 02-15-2020 Troponin I.cardiac [Mass/Vol] ng/mL 0 - 0.034 ng/mL [place] Comment on above: . Test Performed by [facility], [address] , [address] Urinalysison 02-15-2020 Appearance (U) Clear Clear NA [place] Comment on above: . Bilirubin Urine Negative Negative mg/dL [place] Comment on above: . Color (U) LIGHT YELLOW Lt. Yellow [place] Comment on above: . Glucose, Ur Normal Normal (<70) mg/dL [place] Comment on above: . Ketones Ql (U) Negative Negative mg/dL [place] Comment on above: . LEUKOCYTES, UA Negative Negative Jordy/uL [place] Comment on above: . Nitrite, Urine Negative Negative [place] Comment on above: . Occult Blood,Urine Negative Negative mg/dL [place] Comment on above: . pH (U) 6.5 [pH] [place] Comment on above: . Protein (U) [Mass/Vol] Negative Negative mg/dL [place] Comment on above: . Specific [place], Urine 1.009 [place] Comment on above: . Urobilinogen, Urine Normal Normal ( 0-1) mg/dL [place] Comment on above: . Test Performed by [facility], [address] , [address] Urine Drug Screenon 02-15-20 20 Amphetamines, urine Positive [place] Barbiturates, Ur Negative [facility] Benzodiazepine Ur Qual Negative [place] Cocaine Metabolites, Ur Negative [place] Methadone, Urine Negative [facility] [place] Opiates, Urine Negative [place], [place] Oxycodone Screen, Ur Negative [place], [place] PCP, Urine Negative [place] Comment on above: The expected value f or all of the drugs listed above is Negative. The following drugs or drug groups have been screened for by Immunoassay at the following thresholds: Amphetamine class (1000 ng/mL), Barbiturates (200 ng/mL), Benzodiazepines (200 ng/mL), Cocaine (300 ng/mL), Methadone (300 ng/mL), Opiates (300 ng/mL), Oxycodone (100 ng/mL), and PCP (25 ng/mL). NOTE: These results are for medical treatment only. Analysis performed using non-forensic procedures. POSITIVE results are NOT confirmed by a more specific alternative method unless requested. If confirmation is needed, request confirmation under separate order. Test Performed by [facility], [address] [place] [address]. [address] [place] XR CHEST PORTABLEon 02-15-20 Patient Name: ABIMAEL DAVE ---Diagnostic Radiology--- Exam Date/Time 02/15/2020 15:50:00 EST Exam CR Chest Portable Ordering Physician MD BARILLAS VIJAY Accession Number [id number] CPT4 Codes 68561 () Reason For Exam overdose Report PORTABLE CHEST: INDICATION: Overdose, chest pain COMPARISON: No previous studies are available for comparison. Obtained at 1545 hours. A single portable AP radiograph of the chest was obtained. The heart is normal in size. The mediastinal silhouette is normal. The lungs are clear. There are no effusions or infiltrates. There is no pleural thickening. The osseous structures are unremarkable. IMPRESSION: No acute process. Report Dictated on --- Final --- Dictating Physician: DO ALEJO ALFRED Signed Date and Time: 02/15/2020 4:22 pm Signed by: DO ALEJO ALFRED Transcribed Date and Time: 02/15/2020 4:23 [facility] Incoming Radiology Results From [facility] - 02/15/2020 4:23 PM EST Patient Name: ABIMAEL DAVE ---Diagnostic Radiology--- Exam Date/Time 02/15/2020 15:50:00 EST Exam CR Chest Portable Ordering Physician MD BARILLAS VIJAY Accession Number [id number] CPT4 Codes 58018 () Reason For Exam overdose Report PORTABLE CHEST: INDICATION: Overdose, chest pain COMPARISON: No previous studies are available for comparison. Obtained at 1545 hours. A single portable AP radiograph of the chest was obtained. The heart is normal in size. The mediastinal silhouette is normal. The lungs are clear. There are no effusions or infiltrates. There is no pleural thickening. The osseous structures are unremarkable. IMPRESSION: No acute process. Report Dictated on --- Final --- Dictating Physician: DO ALEJO ALFRED Signed Date and Time: 02/15/2020 4:22 pm Signed by: DO ALEJO ALFRED Transcribed Date and Time: 02/15/2020 4:23 [place] Vital Signs Date Time Vital Sign Value Performing Clinician Facility 04-10-2022 07:30-0500 Body temperature 97.88 [degF] NOHEMI RICHARDS MD [facility] 04-10-2022 07:30-0500 Diastolic Blood Pressure Non-Invasive 80 1 NOHEMI RICHARDS MD [facility] 04-10-2022 07:30-0500 Heart rate 75 /min NOHEMI RICHARDS MD [facility] 04-10-2022 07:30-0500 Reason For Taking VItal Signs NOHEMI RICHARDS MD [facility] 04-10-2022 07:30-0500 Respiratory rate 18 /min NOHEMI RICHARDS MD [facility] 04-10-2022 07:30-0500 Systolic Blood Pressure Non-Invasive 112 1 NOHEIM RICHARDS MD [facility] 04-10-2022 00:10-0500 Body temperature 98.42 [degF] NOHEMI RICHARDS MD [facility] 04-10-2022 00:10-0500 Diastolic Blood Pressure Non-Invasive 97 1 NOHEMI RICHARDS MD [facility] 04-10-2022 00:10-0500 Heart rate 76 /min NOHEMI RICHARDS MD [facility] 04-10-2022 00:10-0500 Respiratory rate 18 /min NOHEMI RICHARDS MD [facility] 04-10-2022 00:10-0500 Systolic Blood Pressure Non-Invasive 130 1 NOHEMI RICHARDS MD [facility] 04-09-2022 21:32-0500 Body temperature 97.7 [degF] NOHEMI RICHARDS MD [facility] 04-09-2022 21:32-0500 Diastolic Blood Pressure Non-Invasive 90 1 NOHEMI RICHARDS MD [facility] 04-09-2022 21:32-0500 Heart rate 96 /min NOHEMI RICHARDS MD [facility] 04-09-2022 21:32-0500 Reason For Taking VItal Signs NOHEMI RICHARDS MD [facility] 04-09-2022 21:32-0500 Respiratory rate 16 /min NOHEMI RICHARDS MD [facility] 04-09-2022 21:32-0500 Systolic Blood Pressure Non-Invasive 130 1 NOHEMI RICHARDS MD [facility] 04-09-2022 16:31-0500 Mean blood pressure 97 mm[Hg] NOHEMI RICHARDS MD [facility] 04-09-2022 09:39-0500 Mean blood pressure 75 mm[Hg] NOHEMI RICHARDS MD [facility] 04-09-2022 09:39-0500 Reason For Taking VItal Signs NOHEMI RICHARDS MD [facility] 04-09-2022 01:08-0500 Mean blood pressure 95 mm[Hg] NOHEMI RICHARDS MD [facility] 04-08-2022 12:20-0500 Heart rate 70 /min NOHEMI RICHARDS MD [facility] 04-08-2022 07:55-0500 Heart rate 62 /min NOHEMI RICHARDS MD [facility] 04-08-2022 03:25-0500 Heart rate 64 /min NOHEMI RICHARDS MD [facility] 04-07-2022 20:16-0500 Heart rate 68 /min NOHEMI RICHARDS MD [address] [place] [address] 04-07-2022 07:50-0500 Heart rate 56 /min NOHEMI RICHARDS MD [facility] 04-03-2022 12:48-0500 Body height 165 cm NOHEMI RICHARDS MD [facility] 04-03-2022 12:48-0500 Body weight 60 kg NOHEMI RICHARDS MD [facility] 04-03-2022 12:48-0500 Body weight 22.04 kg/m2 NOHEMI RICHARDS MD [facility] 04-03-2022 12:38-0500 Blood Pressure Location NOHEMI RICHARDS MD [facility] 04-03-2022 12:38-0500 Body weight 60 kg NOHEMI RICHARDS MD [facility] 04-03-2022 10:11-0500 Blood Pressure Location NOHEMI RICHARDS MD [facility] 04-03-2022 10:11-0500 Body weight 72.1 kg NOHEMI RICHARDS MD [facility] 04-03-2022 08:07-0500 Body temperature 97.8 [degF] [facility] Work Phone: 04-03-2022 08:07-0500 Diastolic blood pressure 78 mm[Hg] [facility] Work Phone: 04-03-2022 08:07-0500 Heart rate 18 /min [facility] Work Phone: 04-03-2022 08:07-0500 Respiratory rate 16 /min [facility] Work Phone: 04-03-2022 08:07-0500 SaO2% (BldA) [Mass fraction] 98 % [facility] Work Phone: 04-03-2022 08:07-0500 Systolic blood pressure 140 mm[Hg] [facility] Work Phone: 04-03-2022 06:02-0500 Body height 167.64 cm [facility] Work Phone: 04-03-2022 06:02-0500 Body mass index (BMI) [Ratio] 24.2 kg/m2 [facility] Work Phone: 04-03-2022 06:02-0500 Body weight 68.03 kg [facility] Work Phone: 10-05-2021 00:08-0400 Body height 170.2 cm [facility] [employer] 10-05-2021 00:08-0400 Body mass index (BMI) [Ratio] 23.49 kg/m2 [facility] [employer] 10-05-2021 00:08-0400 Body temperature 98.6 [degF] [facility] [employer] 10-05-2021 00:08-0400 Body weight 68.04 kg [facility] [employer] 10-05-2021 00:08-0400 Diastolic blood pressure 67 mm[Hg] [facility] [employer] 10-05-2021 00:08-0400 Heart rate 72 /min [facility] [employer] 10-05-2021 00:08-0400 Respiratory rate 17 /min [facility] [employer] [employer] 10-05-2021 00:08-0400 SaO2% (BldA) [Mass fraction] 96 % [facility] [employer] 10-05-2021 00:08-0400 Systolic blood pressure 109 mm[Hg] [facility]ENY [facility]O [facility] 06-22-2020 15:09-0400 Body Temperature 98.01 [degF] Kait Howell [facility] Work Phone: 06-22-2020 15:09-0400 BP Diastolic 136 mm[Hg] Kait Howell [facility] Work Phone: 06-22-2020 15:09-0400 BP Systolic 164 mm[Hg] Kait Howell [facility] Work Phone: 06-22-2020 15:09-0400 Pulse (Heart Rate) 110 /min Kait Howell [facility] Work Phone: 06-22-2020 15:09-0400 Pulse Oximetry 97 % Kait Howell [facility] Work Phone: 06-22-2020 15:09-0400 Respiratory Rate 16 /min Kait Howell [facility] Work Phone: 03-14-2020 13:40-0500 BP Diastolic 112 mm[Hg] Kait [facility] [place] 03-14-2020 13:40-0500 BP Systolic 153 mm[Hg] Kait [facility] [place] 03-14-2020 13:40-0500 Pulse (Heart Rate) 72 /[facility] [place] 03-14-2020 13:40-0500 Pulse Oximetry 99 % Kait [facility] [place] 03-14-2020 13:40-0500 Respiratory Rate 18 /min Kait [facility] 03-14-2020 12:26-0500 BMI (Body Mass Index) 24.21 kg/m2 [facility] [place] 03-14-2020 12:26-0500 Body Temperature 96.01 [degF] Kait Howell [facility] 03-14-2020 12:26-0500 Body weight 68.04 kg Kait [facility] [place] 03-14-2020 12:26-0500 Height 167.6 cm [facility] [place] 02-18-2020 12:00-0500 BP Diastolic 98 mm[Hg] Rock Barillas [facility] Comment on above: manual cuff 02-18-2020 12:00-0500 BP Systolic 152 mm[Hg] Rock Alvarez [facility], [place] Comment on above: manual cuff 02-18-2020 11:43-0500 Body Temperature 97.7 [degF] Rock Alvarez [facility] 02-18-2020 11:43-0500 Pulse (Heart Rate) 80 /min Rock Alvarez [facility] 02-18-2020 11:43-0500 Pulse Oximetry 98 % [facility] [place] 02-18-2020 11:43-0500 Respiratory Rate 20 /min [facility] [place] 02-16-2020 04:43-0500 BMI (Body Mass Index) 25.51 kg/m2 Rock Alvarez [facility] [place] 02-16-2020 04:43-0500 Body weight 68.99 kg [facility] Encounters Encounter Date Encounter Type Care Provider Facility Start: 07-10-2023 End: 07-10-2023 Emergency department patient visit MALINI ALAS Facility:[facility] Start: 07-09-2023 End: 07-10-2023 Emergency department patient visit ERIN SORIANO Facility:[facility] Start: 07-09-2023 Admission to [facility] Marielle Jackson [facility] Start: 07-09-2023 ambulatory Marielle Jackson [facility] Intake Comment on above: Psychiatric Problem Start: 05-11-2022 End: 05-12-2022 ambulatory [facility] Start: 05-11-2022 End: 05-11-2022 Subsequent hospital visit by physician Heather Ecg [facility] Stress Comment on above: Displaced fracture o f shaft of left clavicle, initial encounter for closed fracture; Essential (primary) hypertension Start: 05-11-2022 End: 05-11-2022 ambulatory [facility] Lab Drawstation [facility] Laboratory Start: 05-02-2022 Telephone encounter Yoshi muhammad MD Work Phone: Orthopaedics Comment on above: Appointment with Dr. Cerda Start: 04-18-2022 Telephone encounter Jean Carlos Howard MD Work Phone: [facility] Orthopedics Comment on above: Appointment Start: 04-17-2022 Telephone encounter Dennis Powell Work Phone: [facility]ics Comment on above: Appointment Start: 04-03-2022 End: 04-10-2022 Evaluation and management of inpatient NONE PHYSICIAN Facility:A Start: 04-03-2022 End: 04-10-2022 Evaluation and management of inpatient NOHEMI RICHARDS MD [facility] Start: 04-03-2022 End: 04-03-2022 Emergency department patient visit [facility] Start: 01-04-2022 End: 01-04-2022 Patient encounter procedure Yoshi Cerda MD Work Phone: Orthopaedics Comment on above: Closed displaced fra cture of distal phalanx of right little finger, initial encounter (Primary Dx); Mallet finger of right hand Start: 01-04-2022 End: 01-04-2022 Subsequent hospital visit by physician Jimena [facility] Work Phone: Radiology Comment on above: Pain [R52] Start: 10-05-2021 End: 10-05-2021 Emergency department patient visit [facility] Start: 10-05-2021 End: 10-05-2021 Emergency department patient visit [facility] Emergency Department Comment on above: Laceration of right hand without foreign body, initial encounter (Primary Dx) Start: 06-22-2020 End: 06-22-2020 Emergency department patient visit Kait Howell Work Phone: [facility] Comment on above: Rash and other nonsp ecific skin eruption (Primary Dx); Essential hypertension Start: 03-29-2020 End: 03-29-2020 Subsequent hospital visit by physician Jimena [facility] Work Phone: Radiology Comment on above: Hand injuries, right , initial encounter [S69.91XA] Start: 03-14-2020 End: 03-14-2020 Emergency department patient visit Kait Howell Work Phone: [facility] Comment on above: Right leg pain (Prim grabiel Dx); Closed nondisplaced fracture of proximal phalanx of lesser toe of right foot, initial encounter Start: 02-15-2020 End: 02-18-2020 Evaluation and management of inpatient Rock Barillas Work Phone: [facility] 2E TELEMETRY Comment on above: Accidental drug over dose, initial encounter (Primary Dx); Elevated CK Procedures Date Procedure Procedure Detail Performing Clinician Start: 05-11-2022 Ecg routine ecg w/le ast 12 lds trcg only w/o i&r Fuentes Sergio Work Phone: Start: 04-03-2022 CT cervical spine wi thout contrast Start: 04-03-2022 CT of chest and abdomen Start: 04-03-2022 CT of head without contrast Start: 04-03-2022 Plain chest X-ray Start: 10-05-2021 WOUND CARE Start: 03-29-2020 Radex hand minimum 3 views Luis Fernando Ware APRN.LOGISTICS ACCOUNT MANAGER Work Phone: Start: 03-14-2020 Dup-scan xtr veins unilateral/limited study Kati Howell Work Phone: Start: 03-14-2020 Radex foot complete minimum 3 views Kait Howell Work Phone: Start: 03-14-2020 Radiologic examinati on tibia & fibula 2 views Kait Howell Work Phone: Start: 02-18-2020 Blood count complete auto&auto difrntl wbc Kenia Mikel Work Phone: Start: 02-18-2020 Creatine kinase total C hrchristinaa Elver Work Phone: Start: 02-17-2020 Creatine kinase total A huma Morin Work Phone: Start: 02-16-2020 Radex spine lumbosac ral 2/3 views Kenia Mikel Work Phone: Start: 02-16-2020 Acute hepatitis panel A huma Morin Work Phone: Start: 02-16-2020 ADD ON LAB TEST Kenia Morin Work Phone: Start: 02-16-2020 Basic metabolic pane l calcium total Mook Houser Work Phone: Start: 02-16-2020 Creatine kinase total D manuel Houser Work Phone: Start: 02-16-2020 Hepatic function panel Mook Houser Work Phone: Start: 02-15-2020 Drug screen class list a Rock Adusumilli Work Phone: Start: 02-15-2020 Urnls dip stick/tabl et rgnt auto w/o microscopy Rock Adusumilli Work Phone: Start: 02-15-2020 Assay of acetaminophen Rock Adusumilli Work Phone: Start: 02-15-2020 Assay of ethanol Rock Adusumilli Work Phone: Start: 02-15-2020 Assay of salicylate Latasha ay Adusumilli Work Phone: Start: 02-15-2020 Assay of troponin quantitative Rock Adusumilli Work Phone: Start: 02-15-2020 Basic metabolic pane l calcium total Rock Adusumilli Work Phone: Start: 02-15-2020 Creatine kinase total V ijay Adusumilli Work Phone: Start: 02-15-2020 Radiologic exam ches t single view Rock Adusumilli Work Phone: Start: 02-15-2020 Ecg routine ecg w/le ast 12 lds w/i&r Rock Adusumilli Work Phone: Back structure, excl uding neck (body structure) NOHEMI RICHARDS MD Plan of Treatment Date Care Activity Detail Author Start: 07-09-2026 Diabetes Screening Diabetes Screenin g [facility] Start: 11-24-2023 Covid-19 Vaccine ( season) Covid-19 Vaccine ( season) [facility] Start: 11-24-2023 Influenza vaccination C [facility] Start: 03-25-2023 Behavioral Health Screening Behavioral Health Screening [facility] Start: 11-23-2022 Covid-19 Vaccine ( season) Covid-19 Vaccine () [facility] Start: 03-25-2022 DEPRESSION ASSESSMENT DEPRESSION ASS ESSMENT [facility] Start: 11-27-2021 Shingrix Vaccine (2 of 2) Shingrix Vaccine (2 of 2) [facility] Start: 11-23-2021 Influenza vaccination [facility] Start: 03-25-2021 DEPRESSION ASSESSMENT DEPRESSION ASS ESSMENT [facility] Start: 10-22-2020 COVID-19 VACCINE (2 - Moderna series) COVID-19 VACCINE (2 - Moderna series) [facility] Start: 2020 PROSTATE CANCER SCREENING DISCUSSION PROSTATE CANCER SCREENING DISCUSSION [facility] Start: 2020 Prostate specific antigen measurement Prostate Cancer Screening Discussion [facility] Start: 02-29-2020 End: 02-29-2020 Nurse Only [facility] Medical [facility] [place] Start: 02-03-2020 Annual Wellness Visi t (AWV) Annual Wellness Visit (AWV) [place] Start: 01-01-2018 Hepatitis B Vaccine (2 of 3 - Hep B Twinrix 3-dose series) Hepatitis B Vaccine (2 of 3 - Hep B Twinrix 3-dose series) [facility] Start: 04-06-2017 DIABETES SCREEN DIABETES SCREEN [facility] Start: 10-02-2015 Screening for malign ant neoplasm of colon Colon cancer screen colonoscopy [place] Start: 10-02-2015 Shingles Vaccine (1 of 2) Shingles Vaccine (1 of 2) [facility] Start: 10-02-2015 SHINGRIX VACCINE (1 of 2) SHINGRIX VACCINE (1 of 2) [facility] Start: 10-02-2015 Zoster Vaccines (1 o f 2) Zoster Vaccines (1 of 2) [facility] Start: 2010 COLOGUARD (FIT-DNA) COLOGUARD (FIT-D NA) [facility] Start: 2010 Colonoscopy COLONOSCOPY [facility] Start: 2010 COLORECTAL CANCER SCREENING COLORECTAL CANCER SCREENING [facility] Start: [address] COLONOGRAPHY [facility] Start: 2010 FECAL OCCULT BLOOD FECAL OCCULT BLOO D [facility] Start: 2010 Screening for malign ant neoplasm of colon [facility] Start: 2010 SIGMOIDOSCOPY SIGMOIDOSCOPY [facility] Start: 2005 Lipid panel [facility] Start: 2005 Prostate specific antigen measurement Prostate Specific Antigen (PSA) Screening or Monitoring [facility] Start: 2000 Lipid panel Lipid Screening [facility] Start: 2000 LIPID SCREEN LIPID SCREEN [facility] Start: 1984 DTaP/Tdap/Td vaccine (1 - Tdap) DTaP/Tdap/Td vaccine (1 - Tdap) [facility] Start: 1984 DTaP/Tdap/Td Vaccine s (1 - Tdap) DTaP/Tdap/Td Vaccines (1 - Tdap) [facility] Start: 1984 Urine microalbumin profile [facility] Start: 10-02-1983 Anxiety Screening Anxiety Screening [facility] Start: 10-02-1983 Depression Screening Depression Scre ening [facility] Start: 10-02-1983 Diabetes mellitus screening Diabetes Screening [facility] Start: 10-02-1983 HIV SCREENING HIV SCREENING [facility] Start: 10-02-1983 HIV screening HIV Screening [facility] Start: 1981 COVID-19 Vaccine (1) COVID-19 Vaccin e (1) [facility] Work Phone: Start: 1980 HIV screening HIV screen [facility] Start: 1977 Depression Screen Depression Screen [facility] Start: 10-02-1971 PNEUMOCOCCAL (1 - PCV) PNEUMOCOCCAL (1 - PCV) [facility] Start: 10-02-1971 Pneumococcal 0-64 ye ars Vaccine (1 - PCV) Pneumococcal 0-64 years Vaccine (1 - PCV) [facility] Start: 10-02-1971 Pneumococcal 0-64 ye ars Vaccine (1 of 1 - PPSV23) Pneumococcal 0-64 years Vaccine (1 of 1 - PPSV23) [facility] Work Phone: Start: 10-02-1971 Pneumococcal vaccination Pneumococcal Vaccine (1 of 2 - PCV) [facility] Start: 10-02-1971 Pneumococcal Vaccine : Pediatrics (0 to 5 Years) and At-Risk Patients (6 to 64 Years) (1 - PCV) Pneumococcal Vaccine: Pediatrics (0 to 5 Years) and At-Risk Patients (6 to 64 Years) (1 - PCV) [facility] Start: 1970 COVID-19 Vaccine (1) COVID-19 Vaccin e (1) [facility] Start: 1966 Hepatitis A Vaccines (1 of 2 - Risk 2-dose series) Hepatitis A Vaccines (1 of 2 - Risk 2-dose series) [facility] Start: 1966 MMR Vaccines (1 of 1 - Standard series) MMR Vaccines (1 of 1 - Standard series) [facility] Start: 04-03-1966 COVID-19 Vaccine (#1) COVID-19 Vacci ne (#1) [facility] Start: 1965 Annual Wellness Visi t (AWV) Annual Wellness Visit (AWV) [facility] Start: 1965 HEPATITIS B (1 of 3 - 3-dose series) HEPATITIS B (1 of 3 - 3-dose series) [facility] Start: 1965 Hepatitis B Vaccines (1 of 3 - 3-dose series) Hepatitis B Vaccines (1 of 3 - 3-dose series) [facility] Start: 1965 HIV screening HIV Screening [facility] Start: 1965 Lipid panel Lipid Panel [facility] Start: 1965 Screening for malign ant neoplasm of colon [facility] End: 02-18-2020 Basic metabolic 2000 panel Basic Metabolic Panel Lab Routine Tomorrow AM for 1 Occurrences starting 02/18/2020 until 02/18/2020 [facility] [place] Comment on above: Tomorrow AM for 1 Oc currences starting 02/18/2020 until 02/18/2020 Basic metabolic 2000 panel Basic Metabolic Panel Lab Routine 02/18/2020 11:39 AM [facility] ECG 12 lead ECG 12 lead CV E CG Routine Displaced fracture of shaft of left clavicle, initial encounter for closed fracture Essential (primary) hypertension 05/11/2022 11:51 AM [facility] Work Phone: End: 02-18-2020 HEP C RNA, QUANT (VIRAL LOAD) HEP C RNA, QUANT (VIRAL LOAD) Lab Routine Tomorrow AM for 1 Occurrences starting 02/18/2020 until 02/18/2020 [facility] Comment on above: Tomorrow AM for 1 Oc currences starting 02/18/2020 until 02/18/2020 OUTSIDE PROCEDURE SCAN OUTSIDE P ROCEDURE SCAN Procedures Ordered: 05/11/2022 [facility] Comment on above: Ordered: 05/11/2022 Oxygen therapy [[facility] Data Set] Initiate Oxygen Therapy Protocol Respiratory Care Routine Daily until discontinued starting 02/15/2020 [facility] Comment on above: Daily until disconti nued starting 02/15/2020 Patient referral [facility] Work Phone: End: 01-04-2022 XR HAND GENERAL 3V PA/LAT/OBL RIGHT [facility] Work Phone: Comment on above: 1 Occurrences starti ng 01/04/2022 until 01/04/2022 [facility] Immunizations Immunization Date Immunization Notes Care Provider Nuzhat delgado 05-05-2021 influenza virus vaccine, unspecified formulation Marielle Jackson [facility] 02-18-2020 influenza, injectabl e, quadrivalent, preservative free Rock Raquelumilli [facility] 02-18-2020 influenza virus vaccine, unspecified formulation Heather Ecg [facility] 02-15-2020 influenza quadrivale nt split vaccine (FLUZONE;FLUARIX;FLULA OSMAR;AFLURIA) injection 0.5 mL [facility] [place] Payers Date Payer Category Payer Self-pay [id number] 2022 Unknown [id number] 2020 Medicare [id number] 2020 Unknown ANTHEM BLUE CROS S AND BLUE SHIELD ANTHEM MEDIBLUE HMO [id number] 2020[facility] [phone] [address] [place] [address] HMO [id number] 2020 Medicaid [id number] 2014 Medicare [id number] 2014 Medicaid [id number] 2006 Medicare [id number] 2006 Medicare [id number] 1965 Unknown [id number] 1965 Unknown [id number] Unknown [facility] [id number] Unknown [id number] Social History Date Type Detail Facility Start: 02-15-2020 Tobacco smoking status NHIS Never smoker [place] Start: 02-15-2020 End: 03-29-2020 Tobacco use and exposure Never used [place] Start: 02-15-2020 End: 03-13-2022 Alcohol intake Current non-drinker of alcohol (finding) [place], [place] Start: 1965 Sex Assigned At Not on file [place], [place] Start: 02-28-2020 End: 05-11-2022 Exposure to SARS-CoV-2 (event) Not sure [place] Start: 03-14-2020 End: 06-22-2020 Tobacco smoking status NHIS Current some day smoker [facility] Start: 03-29-2020 Tobacco smoking status NHIS Light tobacco smoker [facility] Start: 01-04-2022 Alcohol intake Current drinke r of alcohol (finding) [facility] Start: 09-01-2020 Alcohol Comment occasionally [facility] Start: 04-03-2022 Tobacco smoking status VTIS Unknown if ever smoked [facility] Work Phone: Start: 1965 Sex Assigned At Male W [facility] Work Phone: Sex Assigned At Sex [facility] Start: 03-29-2020 End: 07-10-2023 History of Social function [facility] Start: 03-29-2020 End: 07-10-2023 Tobacco use panel [facility] National Score (1-100), lower number is lower risk 50 [facility] Medical Equipment Procedure Code Equipment Code Equipment Origin al Text Equipment Identifier Dates Plate Stainless Steel 1.3mm Bone 2 Hole Head 6 Hole Shaft Lock Variable - [id number] Start: 04-08-2020 Plate T Titanium 1.3mm Bone Low Profile Nonsterile Hand - [id number] Start: 09-06-2020 Screw Lcp 2mm T6 Stainless Steel 11mm Bone Self Tap Self Retaining - [id number] Start: 04-08-2020 Screw Acumed 2.3 mm Hexalobe Yellow Titanium 13mm Bone Lag Low Profile Hand - [id number] Start: 09-06-2020 Screw 2mm T6 Pur ple Stainless Steel 10mm Bone Self Tap Tip Variable Angle - [id number] Start: 04-08-2020 Screw 2mm T6 Pur ple Stainless Steel 15mm Bone Self Tap Tip Variable Angle - [id number] Start: 04-08-2020 Screw 2mm T6 Pur ple Stainless Steel 13mm Bone Self Tap Tip Variable Angle - [id number] Start: 04-08-2020 Screw 2mm T6 Pur ple Stainless Steel 14mm Bone Self Tap Tip Variable Angle - [id number] Start: 04-08-[address] drv T6 [id number] Start: 04-08-2020 Screw Lcp 2mm T6 Stainless Steel 8mm Bone Self Tap Self Retaining Stardrive - [id number] Start: 04-08-2020 Screw Lcp 2mm T6 Stainless Steel 13mm Bone Self Tap Self Retaining - [id number] Start: 04-08-2020 Screw 2.3mm Hexa lobe Titanium 18mm Bone Multi Nonsterile Hand - [id number] Start: 09-06-2020 Screw 2.3mm Hexa lobe Titanium 14mm Bone Multi Nonsterile Hand - [id number] Start: 09-06-2020 Screw 2.3mm 11mm Bone Hexalobe Dealer Development Manager Elbow - [id number] Start: 09-06-2020 Screw 2.3mm Hexa lobe Titanium 14mm Bone Lag Nonsterile Hand - [id number] Start: 09-06-2020 Functional Status Date Assessment Result Facility 04-10-2022 Functional Status None [facility] 04-10-2022 Functional Status Feeding Assistance Inde pendent [facility] 04-10-2022 Functional Status Activity Statu s ADL Awake, Repositions self [facility] 04-10-2022 Functional Status Yes [facility] 04-09-2022 Functional Status Room check performed [facility] 04-09-2022 Functional Status [facility] 04-09-2022 Functional Status [facility] 04-09-2022 Functional Status [facility] 04-09-2022 Functional Status Independent [facility] 04-09-2022 Functional Status Beds/Devices Hospital b ed [facility] 04-08-2022 Functional Status Patient refused [facility] 04-08-2022 Functional Status [facility] 04-08-2022 Functional Status [facility] 04-08-2022 Functional Status [facility] 04-08-2022 Functional Status [facility] 04-07-2022 Functional Status [facility] 04-07-2022 Functional Status Skin Care Prev entative Intervention(s) heel(s)s elevated, turn and position system [facility] 04-07-2022 Functional Status [facility] 04-07-2022 Functional Status [facility] 04-06-2022 Functional Status Preventative Foam Drsg Location coccyx [facility] 04-06-2022 Functional Status Pt reported pl an is to stay with friend or mother upon d/c [facility] 04-06-2022 Functional Status [facility] 04-05-2022 Functional Status [facility] 04-05-2022 Functional Status Done [facility] 04-04-2022 Functional Status [facility] 04-03-2022 Functional Status Sensory Deficits None A [facility] Mental Status Date Assessment Result Facility 04-09-2022 Mental Status Oriented x 4 [facility] 04-09-2022 Mental Status [facility] 04-09-2022 Mental Status [facility] 04-08-2022 Mental Status [facility] Clinical Notes 03-29-2020 to 07-10-2023 Behavorial Health Intake - Lacy Neves LPC - 07/10/2023 6:21 AM EDTTelephone Encounter - Griselda Kearns PA-C - 05/03/2022 11:32 AM EST Note Date & Type Note Facility 07-10-2023 Miscellaneous Notes Formattin g of this note is different from the original. BEHAVIORAL HEALTH BRIEF INTAKE NOTE SERVICE DATE: 07/10/2023 SERVICE TIME: 6:21 AM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
[2025-02-23 02:00] VITALS: BP 133/84; PULSE 80; RESP 16; TEMP 36.6; O2SAT 100
[2025-02-23] MEDS: 0.9% Normal Saline (1000mL) 1,000 ML 150 ML IV ×2 (03:43→09:49)
[2025-02-23 06:31] LABS: Hematocrit 42.4 % (40-54); Hemoglobin 14.5 g/dL (13.0-16.5); Immature Granulocytes Count 0.010 X10^3/uL (0.0-0.0); Mean Corp Hgb Conc 34.2 g/dL (32-36); Mean Corpuscular Volume 97.9 fL (80-94); Mean Platelet Vol. 9.2 fl (6.2-12.0); NRBC Flagged by Analyzer 0 % (0-5); Platelet Count 171 K/mm3 (150-450); RBC Distribution Width CV 12.2 % (11.6-14.6); RBC Distribution Width SD 44.1 fl (35.1-43.9); Red Blood Count 4.33 M/mm3 (4.6-6.2); White Blood Count 3.8 K/mm3 (4.4-11.0)
[2025-02-23 07:08] LABS: Magnesium 2.2 mg/dL (1.5-2.2)
[2025-02-23 07:36] LABS: Anion Gap 11 (5-15); BUN 13 mg/dL (4-19); BUN/Creat Ratio 17.5 RATIO (10-20); Calcium,Total 7.7 mg/dL (7.6-11.0); Carbon Dioxide 20.4 mmol/L (21.0-32.0); Chloride 109 mmol/L (98-108); Estimated Creatinine Clearance 100.68 ml/min (50-250); Glucose 117 mg/dL (70-99); Potassium 3.7 mmol/L (3.3-5.1)
--- NOTE | 2025-02-23 08:32 | PN.HOSP_ITS ---
Reason for Visit Chief Complaint: Disorientation Subjective Subjective Patient seen still appears agitated. Objective Data Objective Data Vital Signs: Vital Signs Temp Pulse Resp BP Pulse Ox O2 Del Method 97.8 F 80 16 133/84 H 100 Room Air 02/23/25 02:00 02/23/25 02:00 02/23/25 02:00 02/23/25 02:00 02/23/25 02:00 02/23/25 02:00 Oxygen Delivery Method Room Air Weight: 66.224 kg Body Mass Index (BMI) 22.1 Intake & Output: Intake and Output for Last 24 Hours 02/21/25 02/22/25 02/23/25 23:59 23:59 23:59 Intake Total 2975 / 2975 1000 / 1000 Balance 2975 / 2975 1000 / 1000 Lab / Micro Data 02/23/25 06:20 02/23/25 06:20 Labs: Laboratory Results - last 24 hr 02/22/25 08:10: Sodium 140 02/22/25 08:10: Sodium Cancelled, Potassium 3.3 02/22/25 08:10: Potassium Cancelled, Chloride 100 02/22/25 08:10: Chloride Cancelled, Carbon Dioxide 19.5 L 02/22/25 08:10: Carbon Dioxide Cancelled, Anion Gap 20 H 02/22/25 08:10: Anion Gap Cancelled, BUN 33 H 02/22/25 08:10: BUN Cancelled, Creatinine 1.07 02/22/25 08:10: Creatinine Cancelled, Estim Creat Clear Calc 62.00, Est GFR (MDRD) Non-Af 80 02/22/25 08:10: Est GFR (MDRD) Non-Af Cancelled, BUN/Creatinine Ratio 31.1 H 02/22/25 08:10: BUN/Creatinine Ratio Cancelled, Glucose 94 02/22/25 08:10: Glucose Cancelled, Calcium 9.6 02/22/25 08:10: Calcium Cancelled, Total Bilirubin 2.00 H, AST 104 H, ALT 111 H, Alkaline Phosphatase 87, Total Creatine Kinase 1177 H, Total Protein 8.0, Albumin 5.0, Globulin 3.0, Albumin/Globulin Ratio 1.7, Ethyl Alcohol < 10.1 02/22/25 10:15: Urine Color Yellow, Urine Clarity Clear, Urine pH 5.0, Ur Specific Davenport 1.025, Urine Protein 100 H, Urine Glucose (UA) Normal, Urine Ketones 50 H, Urine Occult Blood 150 H, Urine Nitrite Negative, Urine Bilirubin Negative, Urine Urobilinogen Normal, Ur Leukocyte Esterase Negative, Urine RBC 0 SEEN, Urine WBC 0 SEEN, Ur Squamous Epith Cells 0 SEEN, Urine Bacteria 1+, Urine Mucus 0 SEEN, Urine Opiates Screen NEGATIVE, U Buprenorphine Qual NEGATIVE, Ur Oxycodone Screen NEGATIVE, Urine Methadone Screen NEGATIVE, Urine Fentanyl Screen NEGATIVE, Ur Barbiturates Screen NEGATIVE, Ur Phencyclidine Scrn NEGATIVE, Ur Amphetamines Screen NEGATIVE, U Benzodiazepines Scrn NEGATIVE, Urine Cocaine Screen NEGATIVE, U Cannabinoids Screen PRESUMPTIVE POSITIVE 02/22/25 10:35: Sodium 138, Potassium 3.8, Chloride 99, Carbon Dioxide 22.8, A nion Gap 16 H, BUN 31 H, Creatinine 1.01, Estim Creat Clear Calc 65.68, Est GFR (MDRD) Non-Af 86, BUN/Creatinine Ratio 30.3 H, Glucose 88, Calcium 8.8 02/22/25 12:39: Total Creatine Kinase 1566 H 02/23/25 06:20: WBC 3.8 L, RBC 4.33 L, Hgb 14.5, Hct 42.4, MCV 97.9 H, MCH 33.5 H, MCHC 34.2, RDW Std Deviation 44.1 H, RDW Coeff of Katarina 12.2, Plt Count 171, MPV 9.2, Immature Gran % (Auto) 0.300, Neut % (Auto) 61.0, Lymph % (Auto) 23.9, [place] % (Auto) 13.0 H, Eos % (Auto) 1.3, Baso % (Auto) 0.5, Absolute Neuts (auto) 2.3, Absolute Lymphs (auto) 0.90, Nucleated RBC % 0, Sodium 140, Potassium 3.7, Chloride 109 H, Carbon Dioxide 20.4 L, Anion Gap 11, BUN 13, Creatinine 0.74, Estim Creat Clear Calc 100.68, Est GFR (MDRD) Non-Af 104, BUN/Creatinine Ratio 17.5, Glucose 117 H, Calcium 7.7, Phosphorus 1.6 L, Magnesium 2.2 Radiography Diagnostic Testing: Radiology Impression Brain CT 02/22/25 07:58 IMPRESSION: No acute intracranial CT abnormality. Reading Location: [facility] Physical Exam Narrative GENERAL: Patient awake laying on his abdomen not answering questions HEENT: Atraumatic; EYES; Anicteric, Normal Conjunctiva NECK; supple, normal thyroid, RESPIRATORY: Diminished to auscultation CARDIOVASCULAR: Regular S1 S2, GI: soft, normoactive bowel sounds, : No Renal angle tenderness; EXTREMITIES: No edema, no clubbing, MUSCULOSKELETAL: no muscle wasting NEURO: Patient appears to move all extremities spontaneous SKIN: No Rash PSYCH; agitated Assessment & Plan Assessment/Plan (1) Rhabdomyolysis: PLAN: Plan Patient is a 59-year-old gentleman admitted with agitation and suicidal ideas 1. Acute psychosis ? Patient did receive Geodon as well as Ativan in the ED admitted to regular nursing floor with a sitter by the side. salvage worker was consulted from the ED to facilitate transfer to an inpatient psych facility once patient is medically stable ? 03-13; patient still remains agitated currently receiving Ativan as needed 2. Acute rhabdomyolysis ? Secondary to prolonged period of immobilization patient started on IV fluid repeat CPK levels ordered for a.m. ? 02/23/2025; CPK level still pending 3. Dehydration ? As evidenced by elevated BUN. Patient is on IV fluid with repeat BMP ordered for a.m. 4. Essential hypertension ? Patient is on HCTZ and lisinopril plan is to resume once home meds have been reconciled. Patient blood pressure currently elevated ordered hydralazine as needed for systolic blood pressure greater than 160 and diastolic greater than 100 5. Acute transaminitis ? Repeat BMP ordered for a.m. and if still elevated will obtain ultrasound of the right upper quadrant ? 02/23/2025; patient reported previous diagnosis of hep B infection 6. Chronic alcohol dependence ? Counseled on cessation 7. DVT prophylaxis ? Low risk encourage ambulation Time spent in the patient's overall evaluation,decision-making process, review of diagnostic data, adjustment of management, discussion with other providers, nursing nursing and ancillary staff involved in patient's care documentation, 40 minutes Charges/Coding Visit Charges Inpatient E&M: 00197 Subs Hosp L2
[2025-02-23] MEDS: 0.9% Saline Lock 10 ML Syringe IV ×2 (09:37→13:56)
[2025-02-23 09:49] LABS: CPK Total, Creatine Kinase 1448 U/L (24-195)
--- NOTE | 2025-02-23 10:24 | CASEMGMT ---
Addendum entered by Brianna Hogan 02/23/25 11:15: Social Work SW spoke w/SW in ED. She did speak w/Liana from [facility]([phone]), please see her note for details. They had a number for pt's mother of [phone]. SW had tried this number, it does not go through. [facility] also has a number for pt's brother, Mart Dave, , as per the state police, they relayed to [facility] that he may have been here yesterday with pt. Pt's phone is charging so SW cannot yet get a number for pt's mother. SW will continue to follow. MALLORY Saha Addendum entered by Brianna Hogan 02/23/25 11:03: Social Work SW spoke with the hospital's HRO, pt is not familiar to them. He states pt does have a phone, asked pt and he states has his mother's number in his phone, however his phone is . SW spoke w/pt in the room, he is agreeable to SW charging his phone and if we get the number calling his mother. SW inquired if he spoke w/her recently, he states spoke w/her on mother's day and she said f you. He states his mother sold the house in [facility]. He states she has all the money, and she won't let her live w/him. Pt states his mother has an order of protection against him. He states has been living [facility] the [facility] for a year. Pt then expressed frustration w/SW asking questions, states that SW came in to charge his phone and that's all that SW was there to do. Pt states, you've already wasted five minutes where my phone could have already been charging. SW explained will charge his phone. SW is charging phone now, will return to pt when charged. ESTUARDO called [facility] to see if they are familiar w/this pt. SW informed that [facility] had reached out to them as they were made aware pt was brought here to the hospital. They were going to call the ED SW. ESTUARDO called ED SW, and will try [facility] shortly. MALLORY Saha Original Note: Social Work SW attempted to reach pt's parents. The number we have listed, a message cannot be left. SW and RN searched on [employer] for additional numbers. SW attempted to call the numbers, they do not go through. One number ESTUARDO was able to leave a message, however it is uncertain if this is an accurate number: [phone]. ESTUARDO will continue to follow. MALLORY Saha
--- NOTE | 2025-02-23 10:53 | NURSING ---
pt argumentative, uncooperative. HRO and security here- provided pt with his cell phone and wallet that he is requesting.
--- NOTE | 2025-02-23 11:13 | CASEMGMT ---
Social work 0926: received VM from Liana with [facility] (ph: [phone]) stating need to talk with SW due to [facility] having no record of meeting with this patient. Liana stated knowing of patient's presentation here due to receiving a report from the [facility]. 1030: SW returned above VM and had to leave direct ED SW number with the clerical secretary due to Liana being on another call. Liana returned call at 1050 and left a VM for this SW due to SW being busy with another patient situation. 1100: SW talked directly with Liana who was provided with confirmation of patient being admitted here due to not being medically cleared. SW asked for patient's parents' phone numbers due to acute SW not being able to get in contact with patient's parents. Liana stated last known number being [phone]. Liana stated patient has a brother who Liana believes to have been at [facility] last night with patient -- Mart Dave, ph: [phone]. Liana stated that while patient was in detention, patient accepted all [facility] services. Liana stated not knowing if patient was still on probation or not. SW called acute SW Brianna PARADA and passed along the above information. Brianna PARADA stated patient is still not medically cleared at this time and acute SW to continue helping patient at this time. This SW to help as needed. Kaylene Bingham, HEALTHCARE TECHNICIAN, SYSTEMS SOFTWARE MANAGER
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
--- NOTE | 2025-02-23 13:59 | NURSING ---
while resting in bed, pt turns towards his right side and makes a fist and starts punching the mattress under him, also kicks legs out and kicks off one of the covers. prn med given
--- NOTE | 2025-02-23 14:52 | NURSING ---
Oracle Software Engineer in to talk with patient. Pt. refusing to talk at this time.
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
[2025-02-23] MEDS: 0.9% Normal Saline (1000mL) 1,000 ML 200 ML IV (16:33)
[2025-02-23 16:46] VITALS: BP 118/90; PULSE 58; RESP 16; TEMP 36.8; O2SAT 98
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
--- NOTE | 2025-02-23 18:14 | NURSING ---
pt wakes up, twice while at bedside, pt tries removing his iv.
[2025-02-23 20:51] VITALS: BP 140/95; PULSE 75; RESP 16; TEMP 36.8; O2SAT 98
[2025-02-24 05:20] VITALS: BP 152/118; PULSE 77; RESP 16; TEMP 36.3; O2SAT 100
--- NOTE | 2025-02-24 06:02 | PCM.PN.HOSP ---
Reason for Visit Chief Complaint: Disorientation Subjective Subjective Patient seen less agitated. Has been receiving Haldol and Ativan intermittently. CPK levels this a.m. pending. Objective Data Objective Data Vital Signs: Vital Signs Temp Pulse Resp BP Pulse Ox O2 Del Method 97.4 F L 77 16 152/118 H 100 Room Air 02/24/25 05:20 02/24/25 05:20 02/24/25 05:20 02/24/25 05:20 02/24/25 05:20 02/24/25 05:20 Oxygen Delivery Method Room Air Weight: 66.2 kg Body Mass Index (BMI) 22.1 Intake & Output: Intake and Output for Last 24 Hours 02/22/25 02/23/25 02/24/25 23:59 23:59 23:59 Intake Total 2975 / 2975 3848.33 / 3848.33 366.67 / 366.67 Balance 2975 / 2975 3848.33 / 3848.33 366.67 / 366.67 Lab / Micro Data 02/24/25 06:49 02/23/25 06:20 Labs: Laboratory Results - last 24 hr 02/23/25 06:20: WBC 3.8 L, RBC 4.33 L, Hgb 14.5, Hct 42.4, MCV 97.9 H, MCH 33.5 H, MCHC 34.2, RDW Std Deviation 44.1 H, RDW Coeff of Katarina 12.2, Plt Count 171, MPV 9.2, Immature Gran % (Auto) 0.300, Neut % (Auto) 61.0, Lymph % (Auto) 23.9, [place] % (Auto) 13.0 H, Eos % (Auto) 1.3, Baso % (Auto) 0.5, Absolute Neuts (auto) 2.3, Absolute Lymphs (auto) 0.90, Nucleated RBC % 0, Sodium 140, Potassium 3.7, Chloride 109 H, Carbon Dioxide 20.4 L, Anion Gap 11, BUN 13, Creatinine 0.74, Estim Creat Clear Calc 100.68, Est GFR (MDRD) Non-Af 104, BUN/Creatinine Ratio 17.5, Glucose 117 H, Calcium 7.7, Phosphorus 1.6 L, Magnesium 2.2, Total Creatine Kinase 1448 H Physical Exam Narrative GENERAL: Patient is cooperative HEENT: Atraumatic; EYES; Anicteric, Normal Conjunctiva NECK; supple, normal thyroid, RESPIRATORY: Diminished to auscultation CARDIOVASCULAR: Regular S1 S2, GI: soft, normoactive bowel sounds, : No Renal angle tenderness; EXTREMITIES: No edema, no clubbing, MUSCULOSKELETAL: no muscle wasting NEURO: No lateralizing signs SKIN: No Rash PSYCH; flat affect Assessment & Plan Assessment/Plan (1) Rhabdomyolysis: PLAN: Plan Patient is a 59-year-old gentleman admitted with agitation and suicidal ideas 1. Acute psychosis ? Patient did receive Geodon as well as Ativan in the ED admitted to regular nursing floor with a sitter by the side. leadite worker was consulted from the ED to facilitate transfer to an inpatient psych facility once patient is medically stable ? 02/23/2025 patient still remains agitated currently receiving Ativan as needed ? 02/24/2025; Haldol was added to patient treatment regimen and has received alternatively with Ativan and appears calm. 2. Acute rhabdomyolysis ? Secondary to prolonged period of immobilization patient started on IV fluid repeat CPK levels ordered for a.m. ? 02/23/2025; CPK level still pending ? 02/24/2025; CPK levels on 02/23/2025 was 1448. Levels this a.m. still pending 3. Dehydration ? As evidenced by elevated BUN. Patient is on IV fluid with repeat BMP ordered for a.m. 4. Essential hypertension ? Patient is on HCTZ and lisinopril plan is to resume once home meds have been reconciled. Patient blood pressure currently elevated ordered hydralazine as needed for systolic blood pressure greater than 160 and diastolic greater than 100 5. Acute transaminitis ? Repeat BMP ordered for a.m. and if still elevated will obtain ultrasound of the right upper quadrant ? 02/23/2025; patient reported previous diagnosis of hep B infection 6. Chronic alcohol dependence ? Counseled on cessation 7. DVT prophylaxis ? Low risk encourage ambulation 8. Hypophosphatemia ? Corrected per protocol Time spent in the patient's overall evaluation,decision-making process, review of diagnostic data, adjustment of management, discussion with other providers, nursing nursing and ancillary staff involved in patient's care documentation, 38 minutes Charges/Coding Visit Charges Inpatient E&M: 50135 Subs Hosp L2
[2025-02-24 07:08] LABS: Hematocrit 41.7 % (40-54); Hemoglobin 14.9 g/dL (13.0-16.5); Immature Granulocytes Count 0.010 X10^3/uL (0.0-0.0); Mean Corp Hgb Conc 35.7 g/dL (32-36); Mean Corpuscular Volume 95.6 fL (80-94); Mean Platelet Vol. 9.4 fl (6.2-12.0); NRBC Flagged by Analyzer 0 % (0-5); Platelet Count 164 K/mm3 (150-450); RBC Distribution Width CV 12.1 % (11.6-14.6); RBC Distribution Width SD 42.4 fl (35.1-43.9); Red Blood Count 4.36 M/mm3 (4.6-6.2); White Blood Count 3.2 K/mm3 (4.4-11.0)
[2025-02-24 07:21] LABS: Anion Gap 9 (5-15); BUN 7 mg/dL (4-19); BUN/Creat Ratio 11.2 RATIO (10-20); Calcium,Total 8.4 mg/dL (7.6-11.0); Carbon Dioxide 24.9 mmol/L (21.0-32.0); Chloride 107 mmol/L (98-108); Estimated Creatinine Clearance 112.84 ml/min (50-250); Glucose 115 mg/dL (70-99); Potassium 3.0 mmol/L (3.3-5.1)
[2025-02-24 07:35] LABS: CPK Total, Creatine Kinase 1085 U/L (24-195)
--- NOTE | 2025-02-24 10:09 | CASEMGMT ---
Addendum entered by Clari Mccormick 02/24/25 11:52: [place] declined. [facility] would like additional labs prior to decision. Hospitalist updated. ESTUARDO remains available to follow. TAL Jordan Addendum entered by Clari Mccormick 02/24/25 10:59: Social Work- SW received update from Donna that pt has been referred to [facility]. ESTUARDO remains available to follow. TAL Jordan Original Note: Social Work- During rounds, hospitalist reports that pt is medically cleared for crisis eval. SW faxed referral for crisis eval to [facility]. ESTUARDO remains available to follow. TAL Jordan
--- NOTE | 2025-02-24 11:01 | NURSING ---
UPDATED KELL FROM [facility] [place]
[2025-02-24 11:04] VITALS: BP 143/99; PULSE 69; RESP 16; TEMP 36.6; O2SAT 99
[2025-02-24] MEDS: Na Biphos/Potassium Phosphate PACKET 1 PACKET PO (11:18)
[2025-02-24] MEDS: Potassium Chloride Oral Tablet 20 MEQ 40 MEQ PO (11:20)
[2025-02-24] MEDS: 0.9% Saline Lock 10 ML Syringe IV ×2 (11:28→16:33)
[2025-02-24 13:02] LABS: AST(SGOT) 76 U/L (<=37); Alanine Aminotransfer ALT/SGPT 72 U/L (<=46); Albumin, Serum 3.8 g/dL (3.5-5.0); Alkaline Phosphatase 71 U/L (40-129); Anion Gap 11 (5-15); BUN 6 mg/dL (4-19); BUN/Creat Ratio 8.3 RATIO (10-20); Bilirubin, Direct 0.38 mg/dL (0.00-0.30); Calcium,Total 8.5 mg/dL (7.6-11.0); Carbon Dioxide 24.5 mmol/L (21.0-32.0); Chloride 106 mmol/L (98-108); Estimated Creatinine Clearance 97.99 ml/min (50-250); Globulin 2.2 g/dL (2.2-4.2); Glucose 178 mg/dL (70-99); Potassium 3.4 mmol/L (3.3-5.1)
--- NOTE | 2025-02-24 14:42 | DS.PCM_ITS ---
Providers Date of Admission: 02/22/25 Date of Discharge: 02/24/25 Primary Care Physician: No Primary Care Phys Reason For Visit: ACUTE RHABDOMYOLYSIS Diagnosis Discharge Diagnosis (1) Rhabdomyolysis: Status: Acute Code(s): M62.82 - Rhabdomyolysis Plan Patient is a 59-year-old gentleman admitted with agitation and suicidal ideas 1. Acute psychosis ? Patient did receive Geodon as well as Ativan in the ED admitted to regular nursing floor with a sitter by the side. 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 02/23/2025 patient still remains agitated currently receiving Ativan as needed ? 02/24/2025; Haldol was added to patient treatment regimen and has received alternatively with Ativan and appears calm. Patient was accepted for inpatient treatment following medical stabilization 2. Acute rhabdomyolysis ? Secondary to prolonged period of immobilization patient started on IV fluid repeat CPK levels ordered for a.m. ? 02/23/2025; CPK level still pending ? 02/24/2025; CPK levels on 02/23/2025 was 1448. Levels this a.m. still pending 3. Dehydration ? As evidenced by elevated BUN. Patient is on IV fluid with repeat BMP ordered for a.m. 4. Essential hypertension ? Patient is on HCTZ and lisinopril plan is to resume once home meds have been reconciled. Patient blood pressure currently elevated ordered hydralazine as needed for systolic blood pressure greater than 160 and diastolic greater than 100 5. Acute transaminitis ? Repeat BMP ordered for a.m. and if still elevated will obtain ultrasound of the right upper quadrant ? 02/23/2025; patient reported previous diagnosis of hep B infection 6. Chronic alcohol dependence ? Counseled on cessation 7. DVT prophylaxis ? Low risk encourage ambulation 8. Hypophosphatemia ? Corrected per protocol Time spent in the patient's overall evaluation,decision-making process, review of diagnostic data, adjustment of management, discussion with other providers, nursing nursing and ancillary staff involved in patient's care documentation, 38 minutes Medications at Discharge Home Medications hydrochlorothiazide 25 mg tablet 25 mg PO QODAY #30 tabs 08/29/20 lisinopril 10 mg tablet 10 mg PO DAILY #30 tabs 08/29/20 mupirocin 2 % topical ointment 1 applic topical BID #15 grams 02/21/25 potassium chloride 20 mEq tablet,extended release(part/cryst) 20 meq PO BIDCM #0 tabs 02/24/25 potassium, sodium phosphates 280 mg-160 mg-250 mg oral powder packet 1 packet PO BID #0 ea 02/24/25 Physical Exam Narrative GENERAL: Patient is cooperative HEENT: Atraumatic; EYES; Anicteric, Normal Conjunctiva NECK; supple, normal thyroid, RESPIRATORY: Diminished to auscultation CARDIOVASCULAR: Regular S1 S2, GI: soft, normoactive bowel sounds, : No Renal angle tenderness; EXTREMITIES: No edema, no clubbing, MUSCULOSKELETAL: no muscle wasting NEURO: No lateralizing signs SKIN: No Rash PSYCH; flat affect Weight / BMI Weight Weight: 66.2 kg Body Mass Index (BMI) 22.1 ABG / Lab / Microbiology Data 02/24/25 06:49 02/24/25 12:14 Laboratory: Laboratory Results - last 24 hr 02/24/25 06:49: WBC 3.2 L, RBC 4.36 L, Hgb 14.9, Hct 41.7, MCV 95.6 H, MCH 34.2 H, MCHC 35.7, RDW Std Deviation 42.4, RDW Coeff of Katarina 12.1, Plt Count 164, MPV 9.4, Immature Gran % (Auto) 0.300, Neut % (Auto) 61.8, Lymph % (Auto) 23.7, [place] % (Auto) 12.3 H, Eos % (Auto) 1.6, Baso % (Auto) 0.3, Absolute Neuts (auto) 2.0, Absolute Lymphs (auto) 0.75 L, Nucleated RBC % 0, Sodium 140, Potassium 3.0 L, Chloride 107, Carbon Dioxide 24.9, Anion Gap 9, BUN 7, Creatinine 0.66 L, Estim Creat Clear Calc 112.84, Est GFR (MDRD) Non-Af 108, BUN/Creatinine Ratio 11.2, G lucose 115 H, Calcium 8.4, Total Creatine Kinase 1085 H 02/24/25 12:14: Sodium 141, Potassium 3.4, Chloride 106, Carbon Dioxide 24.5, Anion Gap 11, BUN 6, Creatinine 0.76, Estim Creat Clear Calc 97.99, Est GFR (MDRD) Non-Af 103, BUN/Creatinine Ratio 8.3 L, Glucose 178 H, Calcium 8.5, Total Bilirubin 0.94, Direct Bilirubin 0.38 H, AST 76 H, ALT 72 H, Alkaline Phosphatase 71, Total Protein 6.0, Albumin 3.8, Globulin 2.2, Albumin/Globulin Ratio 1.7 D/C Instructions DC O2, CPAP, BIPAP Needs Home O2 Discharge instructions: No Meaningful Use Info Meaningful Use Meaningful Use Diagnoses (Choose all that apply): None applicable Discharge Plan Admission Admit Date/Time: 02/22/25 13:37 Attending Provider: Antione Espinosa Primary Care Provider: Care Physician,No Primary Discharge Orders/Prescriptions Prescriptions: New potassium chloride 20 mEq Tablet,Er Particles/Crystals 20 meq PO BIDCM Qty: 0 0RF potassium, sodium phosphates 280-160-250 mg Powder In Packet 1 packet PO BID Qty: 0 0RF Continued mupirocin 2 % ointment 1 applic topical BID Qty: 15 1RF lisinopril 10 mg tablet 10 mg PO DAILY Qty: 30 0RF hydrochlorothiazide 25 mg tablet 25 mg PO QODAY Qty: 30 0RF Referrals / Follow Up: Care Physician,No Primary [Primary Care Provider, Medical] - Within 1 Month Disposition Disposition (needs filled in before D/C Order can be placed): [facility] Charges/Coding Visit Charges Inpatient E&M: 95848 Disch Hosp >30min
--- NOTE | 2025-02-24 15:11 | CASEMGMT ---
Social Work- Pt has acceptance at [facility]. Hospitalist completed pink slip. TAL Jordan
--- NOTE | 2025-02-24 15:14 | PHA.DC.MR.R ---
Pharmacy [place] [facility] Reconciliation Pharmacy Service has performed discharge medication reconciliation for this patient. The patient's discharge medication list was reviewed for discrepancies and discrepancies were resolved. Medications at Discharge Home Medications hydrochlorothiazide 25 mg tablet 25 mg PO QODAY #30 tabs 08/29/20 lisinopril 10 mg tablet 10 mg PO DAILY #30 tabs 08/29/20 mupirocin 2 % topical ointment 1 applic topical BID #15 grams 02/21/25 potassium chloride 20 mEq tablet,extended release(part/cryst) 20 meq PO BIDCM #0 tabs 02/24/25 potassium, sodium phosphates 280 mg-160 mg-250 mg oral powder packet 1 packet PO BID #0 ea 02/24/25
--- NOTE | 2025-02-24 15:46 | NURSING ---
information per Roberto from Crisis pt going to [facility]- nurse to nurse phone number [phone]. aware physician's ambulance transporting, earliest roll picker time 19:30 primary RN, warehouse supervisor 3rd shift, security and sitter aware
[2025-02-24 15:48] VITALS: BP 137/95; PULSE 83; RESP 15; TEMP 36.6; O2SAT 97
[2025-02-24] MEDS: Potassium Chloride Oral Tablet 20 MEQ PO (16:33)
--- NOTE | 2025-02-24 16:58 | NURSING ---
REPORT GIVEN TO TRANSPORT BY [employer] [facility].
[2025-02-24 17:21] VITALS: BP 137/95; PULSE 83; RESP 16; TEMP 36.6; O2SAT 98
--- NOTE | 2025-02-26 11:38 | CASEMGMT ---
Social Work Pt's mother Amanda Dave called in inquiring where her son went. SW called [facility], asked them to call pt's mother to update her as they placed pt. They will do so. Amanda Carlsonpp's number: [phone]. MALLORY Saha
== END 2025-02-24 17:08 | DRG 351 ==
LOC: ED 08:16 → MS3 15:47
PROVIDERS: Admitting Provider Internal Medicine; Emergency Provider Surgery; Visit Provider Internal Medicine
DX: M62.82 Rhabdomyolysis (principal); E83.39 Other disorders of phosphorus metabolism; F23 Brief psychotic disorder; F10.20 Alcohol dependence, uncomplicated; I10 Essential (primary) hypertension; E86.0 Dehydration; R45.851 Suicidal ideations; Z79.899 Other long term (current) drug therapy; R74.01 Elevation of levels of liver transaminase levels
CPT/HCPCS: 36415; 70450; 80048; 80053; 80307; 81001; 82077; 82248; 82550; 83735; 84100; 85025; 93005; 97802; 99285; A4216